=== PATIENT | female | born 1955 | race Caucasian/White ===

== ENCOUNTER 2017-08-26 18:52 | Emergency (ER) | payer OTHER, SELFPAY ==
[2017-08-26 18:58] VITALS: BP 161/82; PULSE 87; RESP 14; TEMP 37.1; O2SAT 99; BMI 31.5
--- NOTE | 2017-08-26 19:01 | ED.ABDPAIN ---
HPI - Abdominal Pain General Chief Complaint: Abdominal Pain Stated Complaint: PAIN LOWER LEFT ABD Time Seen by Provider: 08/26/17 18:58 Source: patient Mode of arrival: ambulatory Limitations: no limitations History of Present Illness HPI narrative: 62-year-old female with lower abdominal pain that is on the left side. Patient states that she has been diagnosed with diverticulitis in the past. States that she just finished a course of antibiotics which include Flagyl and Cefdinir. Patient states that she has autoimmune issues which prevent her from taking other antibiotics. She is scheduled for a colonoscopy the beginning of next week. She states that her symptoms that she has today are the same symptoms she has had for months now. She states that she called her GI provider who instructed her that since she just finished a course of antibiotics and her symptoms have not improved that she needed to come to the emergency department for further evaluation. Related Data Home Medications Medication Instructions Recorded Confirmed pravastatin [Pravachol] 20 mg PO HS #30 tab 11/22/15 methotrexate sodium (PF) #0 12/16/16 ustekinumab [Stelara] #0 12/16/16 estradiol [Vagifem] 10 mcg VG SEE INSTRUCTIONS #0 06/18/17 Previous Rx's Medication Instructions Recorded fluconazole [Diflucan] 150 mg PO QDAY #1 tab 07/18/17 fluconazole 200 mg tablet 200 mg PO DAILY #14 tab 08/16/17 hydrochlorothiazide 12.5 mg tablet 12.5 mg PO DAILY #30 tab 08/21/17 Allergies Allergy/AdvReac Type Severity Reaction Status Date / Time amoxicillin [From Augmentin] Allergy Intermediate Palpitation Verified 08/26/17 19:05 s clavulanic acid Allergy Intermediate Palpitation Verified 08/26/17 19:05 [From Augmentin] s cefuroxime [From CEFTIN] Allergy Mild swollen Verified 08/26/17 19:01 joints ciprofloxacin [CIPROFLOXACIN] Allergy Mild swollen Verified 08/26/17 19:01 tendons doxycycline [DOXYCYCLINE] Allergy Mild severe Verified 08/26/17 19:01 gastritis sulfamethoxazole Allergy Mild RASH Verified 08/26/17 19:01 Review of Systems Constitutional Denies chills, Denies fever(s), Denies lethargy and Denies weakness Cardiovascular Denies chest pain, Denies irregular heart rhythm, Denies lightheadedness, Denies palpitations, Denies dyspnea, Denies dyspnea on exertion and Denies orthopnea Respiratory Denies cough, Denies dyspnea, Denies dyspnea on exertion and Denies wheezing Gastrointestinal Comments: Left lower quadrant abdominal pain Nausea no vomiting No change in stool Genitourinary Denies hematuria, Denies flank pain, Denies urinary incontinence and Denies urinary urgency Comments: Has had a hysterectomy 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 Musculoskeletal Denies back pain, Denies muscle weakness, Denies numbness and Denies tingling Integumentary/Breasts Denies pruritus, Denies erythema, Denies rash and Denies wounds Neurologic Denies numbness, Denies tingling and Denies weakness Endocrine Denies palpitations Allergic/Immunologic Denies wheezing PFSH Surgical History Status post colonoscopy Status post endoscopy Status post hysterectomy Status post knee surgery Status post tubal ligation Family History Brother Age: 59 Multiple sclerosis Brother Age: 43 IBS (irritable bowel syndrome) Father Age: 83 Alzheimer disease Mother Age: 83 Breast cancer Heart disease Hypertension High cholesterol Sister Age: 57 Sjoegren syndrome Social History Smoking Status: Never smoker Exam Const General: cooperative and well developed Nutritional Appearance: well nourished Orientation: alert, awake, oriented x3 and not confused Chest Chest: normal inspection of the chest Resp Effort & Inspection: normal respiratory effort, able to speak in complete sentences, no respiratory distress and no use of accessory muscles Auscultation: clear to auscultation bilaterally, no rales, no rhonchi and no wheezes Cardio Rate: regular rate Rhythm: regular rhythm Heart Sounds: no click, no gallops, no murmurs and no rubs Pulses: normal peripheral pulses GI Inspection: normal to inspection and non-distended Palpation: soft, No firm and tender (Left lower quadrant) Skin General: no rashes or lesions noted, No jaundice and No petechiae Neuro General: alert, oriented x3, gait normal and no focal motor deficits Cranial Nerves: CN's II-XI intact bilaterally Speech: speech normal Motor: strength 5/5 throughout Sensory Exam: no sensory deficits noted Extrem General: full ROM, no clubbing, cyanosis or edema, no pedal edema and no calf tenderness MDM - Abdominal Pain MDM Narrative Medical decision making narrative: Had a discussion with the patient regarding her symptoms. She expressed that she has had multiple CT scans in the past several months/years for symptoms similar to what she has today. Informed her that because of her prior diagnoses of diverticulitis and the fact that she feels like this is similar to her prior diagnoses that we could treat her with antibiotics under the assumption that that is what is going on again today in avoid another CT scan. She states that she was concerned about this because her provider who was scheduled to do her colonoscopy the beginning of next week thought that she needed another CT scan to evaluate for potential complications and she seemed did not improve after her last course of antibiotics which she quit only a short time ago. We did discuss in the patient expressed understanding that multiple CT scans does expose her to a risk of radiation potential complications of this. She expressed understanding. The CT scan was performed which was unchanged from her prior scans. Patient was somewhat confused about this stating that she was told that her CT scan from March of last year that she had ???a bad case of diverticulitis ???I printed off though to results of the CT scan from March in than the 1 from June of this year and then the 1 from July this year +today CT scan so that she can take it to her GI provider at the beginning of next week. Since there were no complications such as abscesses or perforations seen on the CT scan and the fact that she has multiple issues with antibiotics and that the course of antibiotics that she just completed did not seem to help her symptoms I will hold on prescribing her another course of these antibiotics. She was instructed that she does need to follow up with her GI provider to discuss further evaluation. She expressed understanding and agreement with plan Lab Data Attestation: I reviewed the patient's lab results. Result diagrams: 08/26/17 19:10 08/26/17 19:10 Lab Results 08/26/17 08/26/17 08/26/17 Range/Units 19:10 19:10 19:10 WBC 11.8 H (4.5-11.0) X10^3/uL RBC 4.55 (4.0-5.2) X10^6/uL Hgb 13.1 (12.0-16.0) g/dL Hct 39.6 (36-46) % MCV 87.0 (80-100) fL MCH 28.9 (26-34) PG MCHC 33.2 (30-36) % RDW 16.4 H (11.6-14.8) % Plt Count 237 (150-400) X10^3/uL Neut % (Auto) 65.9 (50-75) % Lymph % (Auto) 24.5 L (25-40) % Conway % (Auto) 6.5 (3-14) % Eos % (Auto) 1.8 L (2-4) % Baso % (Auto) 1.3 (0-2) % Neut # (Auto) 7800 H (9430-1647) /uL PT 10.9 (10.1-12.7) SECONDS INR 1.0 (0.9-1.3) APTT 26 L (26.4-36.2) SECONDS Sodium 144 (137-145) mmol/L Potassium 3.7 (3.4-5.1) mmol/L Chloride 101.0 (98-107) mmol/L Carbon Dioxide 28.0 (22-32) mmol/L BUN 14.0 (7-17) mg/dL Creatinine 0.90 (0.52-1.04) mg/dL Estimated GFR > 60.0 (>60) mL/min BUN/Creatinine Ratio 15.6 (6-22) Glucose 97 (80-110) mg/dL Calcium 9.6 (8.4-10.2) mg/dL Total Bilirubin 0.5 (0.2-1.3) mg/dL AST 29 (14-36) IU/L ALT 42 (9-52) IU/L Alkaline Phosphatase 101 (38-126) U/L Total Protein 7.9 (6.3-8.2) g/dL Albumin 4.3 (3.5-5.0) g/dL Globulin 3.6 (1.7-4.1) g/dL Albumin/Globulin Ratio 1.2 (1.0-2.8) Lipase 78 (23-300) U/L Urine Color Urine Appearance Urine pH (4.5-8.0) Ur Specific Sheridan (1.000-1.035) Urine Protein (NEGATIVE) Urine Glucose (UA) (NEGATIVE) g/dL Urine Ketones (NEGATIVE) Urine Occult Blood (NEGATIVE) Urine Nitrate (NEGATIVE) Urine Bilirubin (NEGATIVE) Urine Urobilinogen (0.2) E.U./dL Ur Leukocyte Esterase (NEGATIVE) Urine RBC (0-5/HPF) Amorphous Sediment Ur Culture Indicated? Micro UA Comment 08/26/17 Range/Units 19:50 WBC (4.5-11.0) X10^3/uL RBC (4.0-5.2) X10^6/uL Hgb (12.0-16.0) g/dL Hct (36-46) % MCV (80-100) fL MCH (26-34) PG MCHC (30-36) % RDW (11.6-14.8) % Plt Count (150-400) X10^3/uL Neut % (Auto) (50-75) % Lymph % (Auto) (25-40) % Conway % (Auto) (3-14) % Eos % (Auto) (2-4) % Baso % (Auto) (0-2) % Neut # (Auto) (9190-2493) /uL PT (10.1-12.7) SECONDS INR (0.9-1.3) APTT (26.4-36.2) SECONDS Sodium (137-145) mmol/L Potassium (3.4-5.1) mmol/L Chloride (98-107) mmol/L Carbon Dioxide (22-32) mmol/L BUN (7-17) mg/dL Creatinine (0.52-1.04) mg/dL Estimated GFR (>60) mL/min BUN/Creatinine Ratio (6-22) Glucose (80-110) mg/dL Calcium (8.4-10.2) mg/dL Total Bilirubin (0.2-1.3) mg/dL AST (14-36) IU/L ALT (9-52) IU/L Alkaline Phosphatase (38-126) U/L Total Protein (6.3-8.2) g/dL Albumin (3.5-5.0) g/dL Globulin (1.7-4.1) g/dL Albumin/Globulin Ratio (1.0-2.8) Lipase (23-300) U/L Urine Color Yellow Urine Appearance Clear Urine pH 5.5 (4.5-8.0) Ur Specific Sheridan <=1.005 (1.000-1.035) Urine Protein Negative (NEGATIVE) Urine Glucose (UA) Negative (NEGATIVE) g/dL Urine Ketones Negative (NEGATIVE) Urine Occult Blood 1+ H (NEGATIVE) Urine Nitrate Negative (NEGATIVE) Urine Bilirubin Negative (NEGATIVE) Urine Urobilinogen 0.2 (0.2) E.U./dL Ur Leukocyte Esterase Negative (NEGATIVE) Urine RBC 0-1/hpf (0-5/HPF) Amorphous Sediment 2+ Ur Culture Indicated? Cult not indicated Micro UA Comment Not Reportable Imaging Data CT scan - abdomen: Radiologist's impression: PROCEDURE: CT ABDOMEN PELVIS W CON INDICATIONS: Left-sided abdominal pain hx of diverticulitis PO and IV TECHNIQUE: After the administration of oral and intravenous contrast, 5 mm thick sections acquired from the diaphragms to the symphysis. 5 mm thick coronal and sagittal reformats were performed. For radiation dose reduction, the following was used: automated exposure control, adjustment of mA and/or kV according to patient size. COMPARISON: [facility], CT, ABDOMEN/PELVIS WITH CONTRAST, further abdomen and pelvis CT from 04/09/2016. 07/24/2017, 12:58. FINDINGS: Image quality: Excellent. ABDOMEN: Lung bases: Lung bases are clear. Heart size is normal. Solid organs: Liver is normal in size and enhancement. Gallbladder is normal. Biliary system is non-dilated. Pancreas enhances normally. Spleen is normal in size and enhancement. No adrenal nodules. Kidneys are normal in size and enhancement, without hydronephrosis. Peritoneum and bowel: The appendix is dilated proximally however it tapers to a normal caliber containing gas. There is no surrounding inflammatory change. Findings do not support acute appendicitis. Small bowel and stomach are normal. Sigmoid diverticulosis with wall thickening in the sigmoid colon adjacent to the bladder and surrounding mild inflammatory change. No obstruction, perforation, or drainable limited collections. Nodes and vessels: No retroperitoneal or mesenteric adenopathy. Aorta and inferior vena cava are normal in caliber. Miscellaneous: No ventral hernias. PELVIS: Genitourinary: Bladder wall thickness is normal. Miscellaneous: No inguinal hernias or adenopathy. Bones: No suspicious bony lesions. No vertebral body compression fractures. IMPRESSION: 1. Persistent diverticulosis and wall thickening in the sigmoid colon unchanged since at least 03/2016. There is mild inflammatory change which may represent persistent uncomplicated diverticulitis. Findings are adjacent to the bladder, however there is no CT evidence of a fistula. 2. Please note, the patient has undergone 15 abdomen and pelvis CTs at this institution in the previous 3 years. Dictated by: Get Torres M.D. on 08/26/2017 at 21:27 ECG Data Attestation: I personally reviewed and interpreted this ECG as follows: Prior ECG tracings: not available for review Interpretation: Sinus rhythm Ventricular rate 82 Normal axis Normal intervals Normal QRS No ST T wave changes Course Orders Ordered: ED Orders 08/26/17 19:41 CT abdomen pelvis w con Stat 08/26/17 19:50 Urinalysis and Microscopic Stat Discontinued Medications Sodium Chloride (Normal Saline 0.9%) 1,000 mls @ 1,000 mls/hr IV BOLUS ONE Stop: 08/26/17 20:40 Last Infusion: 08/26/17 22:29 Dose: 0 mls/hr Admin: 08/26/17 19:59 Dose: 1,000 mls/hr Last Vital Signs Temp 98.8 F 08/26/17 18:58 Pulse 79 08/26/17 22:30 Resp 18 08/26/17 22:30 BP 153/80 H 08/26/17 22:30 Pulse Ox 98 08/26/17 22:30 Discharge Plan Departure Patient Disposition: Home, Self-Care Clinical Impression: Diverticulitis, Abdominal pain Discharge Date/Time: 08/26/17 22:31 Interventions: ED Discharge Assessment Last Done: 08/26/17 22:30 Instructions: Diverticulitis, DI for Abdominal Pain-Adult Activity Restrictions/Additional Instructions: Recommend that you keep your appointment with your GI provider on Monday as scheduled. Return to the emergency department for any new or worsening symptoms. Continue all medications as directed. Prescriptions: No Action pravastatin [Pravachol] 20 MG tablet 20 mg PO HS Qty: 30 RF: 0 methotrexate sodium (PF) 25 MG/1 ML solution Qty: 0 RF: 0 ustekinumab [Stelara] 45 MG/0.5 ML solution Qty: 0 RF: 0 estradiol [Vagifem] 10 MCG tablet 10 mcg VG SEE INSTRUCTIONS Qty: 0 RF: 0 fluconazole [Diflucan] 150 MG tablet 150 mg PO QDAY Qty: 1 RF: 1 fluconazole [Diflucan] 200 mg tablet 200 mg PO DAILY Qty: 14 RF: 0 hydrochlorothiazide 12.5 mg tablet 12.5 mg PO DAILY Qty: 30 RF: 1
--- NOTE | 2017-08-26 19:24 | PC.NURSE ---
Patient describes pain as different than her normal diverticulitis pain. She also c/o of epigastric chest pressure, burping, and a feeling of indigestion. Bowel sounds are active. Last bowel movement was darker, per patient report.
[2017-08-26 19:28] LABS: Prothrombin Time 10.9 SECONDS (10.1-12.7)
[2017-08-26 19:29] LABS: Add Manual Diff / Slide Review NO; Basophils Percent Auto 1.3 % (0-2); Eosinophils Percent Auto 1.8 % (2-4); Hematocrit 39.6 % (36-46); Hemoglobin 13.1 g/dL (12.0-16.0); Lymphocytes Percent Auto 24.5 % (25-40); Mean Corpuscular HGB Conc 33.2 % (30-36); Mean Corpuscular Hemoglobin 28.9 PG (26-34); Monocytes Percent Auto 6.5 % (3-14); Neutrophils Absolute Auto 7800 /uL (3000-5900); Neutrophils Percent Auto 65.9 % (50-75); Platelet Count 237 X10^3/uL (150-400); Red Blood Cell Count 4.55 X10^6/uL (4.0-5.2); Red Cell Distribution Width 16.4 % (11.6-14.8); White Blood Cell Count 11.8 X10^3/uL (4.5-11.0)
[2017-08-26 19:31] LABS: PTT Partial Thromboplastin Tim 26 SECONDS (26.4-36.2)
[2017-08-26 19:32] LABS: Alanine Aminotransferase 42 IU/L (9-52); Albumin 4.3 g/dL (3.5-5.0); Albumin Globulin Ratio 1.2 (1.0-2.8); Alkaline Phosphatase 101 U/L (38-126); Aspartate Aminotransferase 29 IU/L (14-36); BUN Creatinine Ratio 15.6 (6-22); Bilirubin Total 0.5 mg/dL (0.2-1.3); Calcium 9.6 mg/dL (8.4-10.2); Estimated Glomerular Filt Rate > 60.0 mL/min (>60); Globulin 3.6 g/dL (1.7-4.1); Glucose 97 mg/dL (80-110); HEMOLYSIS < 15 (0-50); Lipase 78 U/L (23-300); Potassium 3.7 mmol/L (3.4-5.1); Sodium 144 mmol/L (137-145); Total Protein 7.9 g/dL (6.3-8.2)
--- NOTE | 2017-08-26 19:41 | DI.CT.S_ITS ---
PROCEDURE: CT ABDOMEN PELVIS W CON INDICATIONS: Left-sided abdominal pain hx of diverticulitis PO and IV TECHNIQUE: After the administration of oral and intravenous contrast, 5 mm thick sections acquired from the diaphragms to the symphysis. 5 mm thick coronal and sagittal reformats were performed. For radiation dose reduction, the following was used: automated exposure control, adjustment of mA and/or kV according to patient size. COMPARISON: [facility], CT, ABDOMEN/PELVIS WITH CONTRAST, further abdomen and pelvis CT from 04/09/2016. 07/24/2017, 12:58. FINDINGS: Image quality: Excellent. ABDOMEN: Lung bases: Lung bases are clear. Heart size is normal. Solid organs: Liver is normal in size and enhancement. Gallbladder is normal. Biliary system is non-dilated. Pancreas enhances normally. Spleen is normal in size and enhancement. No adrenal nodules. Kidneys are normal in size and enhancement, without hydronephrosis. Peritoneum and bowel: The appendix is dilated proximally however it tapers to a normal caliber containing gas. There is no surrounding inflammatory change. Findings do not support acute appendicitis. Small bowel and stomach are normal. Sigmoid diverticulosis with wall thickening in the sigmoid colon adjacent to the bladder and surrounding mild inflammatory change. No obstruction, perforation, or drainable limited collections. Nodes and vessels: No retroperitoneal or mesenteric adenopathy. Aorta and inferior vena cava are normal in caliber. Miscellaneous: No ventral hernias. PELVIS: Genitourinary: Bladder wall thickness is normal. Miscellaneous: No inguinal hernias or adenopathy. Bones: No suspicious bony lesions. No vertebral body compression fractures. IMPRESSION: 1. Persistent diverticulosis and wall thickening in the sigmoid colon unchanged since at least 03/2016. There is mild inflammatory change which may represent persistent uncomplicated diverticulitis. Findings are adjacent to the bladder, however there is no CT evidence of a fistula. 2. Please note, the patient has undergone 15 abdomen and pelvis CTs at this institution in the previous 3 years. Dictated by: Get Torres M.D. on 08/26/2017 at 21:27 Approved by: Get Torres M.D. on 08/26/2017 at 21:34
[2017-08-26] MEDS: SODIUM CHLORIDE 0.9% 1,000 ML 1000 ML IV (19:59)
[2017-08-26 20:04] LABS: Appearance Urine UA CLEAR; Bilirubin Urine UA NEGATIVE (NEGATIVE); Color Urine UA YELLOW; Glucose Urine UA NEGATIVE (NEGATIVE); Ketones Urine UA NEGATIVE (NEGATIVE); Leukocyte Esterase Urine UA NEGATIVE (NEGATIVE); Nitrite Urine UA NEGATIVE (NEGATIVE); Occult Blood Urine UA 1+ (NEGATIVE); Protein Urine UA NEGATIVE (NEGATIVE); Specific Gravity Urine UA <=1.005 (1.000-1.035); Urobilinogen Urine UA 0.2 E.U./dL (0.2); pH Urine UA 5.5 (4.5-8.0)
[2017-08-26 20:19] VITALS: BP 150/76; PULSE 83; RESP 15; O2SAT 98
[2017-08-26 20:33] LABS: Amorphous Sediment Urine 2+; Culture Indicated Urine Cult Not Indicated; RBC Urine 0-1/HPF (0-5/HPF)
[2017-08-26 22:30] VITALS: BP 153/80; PULSE 79; RESP 18; O2SAT 98
== END 2017-08-26 22:31 | disposition home or self-care (01) ==
PROVIDERS: Emergency Provider Emergency Medicine; Family Provider Physician Assistant; PCP Physician Assistant
DX: K57.92 Diverticulitis of intestine, part unspecified, without perforation or abscess without bleeding (principal); R10.9 Unspecified abdominal pain
CPT/HCPCS: 36591; 74177; 80053; 81001; 81003; 83690; 85025; 85610; 85730; 93005; 96360; 99283; 99285; Q9967

== ENCOUNTER → 2017-09-05 11:03 | Outpatient (CLI) | payer OTHER, SELFPAY ==
[2017-09-05 12:23] LABS: Add Manual Diff / Slide Review NO; Basophils Percent Auto 0.8 % (0-2); Eosinophils Percent Auto 2.6 % (2-4); Lymphocytes Percent Auto 18.2 % (25-40); Mean Corpuscular HGB Conc 33.3 % (30-36); Mean Corpuscular Hemoglobin 28.7 PG (26-34); Mean Corpuscular Volume 86.3 fL (80-100); Monocytes Percent Auto 7.9 % (3-14); Neutrophils Absolute Auto 6800 /uL (3000-5900); Neutrophils Percent Auto 70.5 % (50-75); Platelet Count 263 X10^3/uL (150-400); Red Blood Cell Count 4.52 X10^6/uL (4.0-5.2); Red Cell Distribution Width 15.6 % (11.6-14.8); White Blood Cell Count 9.6 X10^3/uL (4.5-11.0)
[2017-09-05 12:32] LABS: Erythrocyte Sedimentation Rate 29 MM/HR (0-20)
[2017-09-05 12:51] LABS: Alanine Aminotransferase 38 IU/L (9-52); Albumin 4.2 g/dL (3.5-5.0); Albumin Globulin Ratio 1.1 (1.0-2.8); Alkaline Phosphatase 99 U/L (38-126); Aspartate Aminotransferase 23 IU/L (14-36); Bilirubin Total 0.3 mg/dL (0.2-1.3); Calcium 9.6 mg/dL (8.4-10.2); Estimated Glomerular Filt Rate > 60.0 mL/min (>60); Globulin 3.7 g/dL (1.7-4.1); Glucose 104 mg/dL (80-110); HEMOLYSIS < 15 (0-50); Lipase 71 U/L (23-300); Potassium 3.9 mmol/L (3.4-5.1); Sodium 143 mmol/L (137-145); Total Protein 7.9 g/dL (6.3-8.2)
[2017-09-05 12:56] LABS: High Sensitivity CRP - Cardiac 4.6 mg/L (1.0-3.0)
== END ==
PROVIDERS: PCP Family Medicine; Visit Provider Internal Medicine Gastroenterology
DX: R10.32 Left lower quadrant pain (principal); K57.32 Diverticulitis of large intestine without perforation or abscess without bleeding
CPT/HCPCS: 36415; 80053; 83690; 85025; 85651; 86140

== ENCOUNTER → 2017-09-19 09:01 | Outpatient (CLI) | payer OTHER, SELFPAY ==
[2017-09-19 12:00] LABS: Thyroid Stimulating Hormone 1.44 uIU/mL (0.47-4.68)
== END ==
PROVIDERS: PCP Family Medicine; Visit Provider Family Medicine
DX: E03.9 Hypothyroidism, unspecified (principal)
CPT/HCPCS: 36415; 84443

== ENCOUNTER → 2017-09-29 10:27 | Outpatient (CLI) | payer OTHER, SELFPAY ==
[2017-09-29 11:00] LABS: Add Manual Diff / Slide Review NO; Basophils Percent Auto 0.7 % (0-2); Eosinophils Percent Auto 2.8 % (2-4); Hematocrit 40.5 % (36-46); Hemoglobin 13.3 g/dL (12.0-16.0); Lymphocytes Percent Auto 21.3 % (25-40); Mean Corpuscular HGB Conc 32.9 % (30-36); Mean Corpuscular Hemoglobin 29.2 PG (26-34); Mean Corpuscular Volume 88.9 fL (80-100); Monocytes Percent Auto 5.8 % (3-14); Neutrophils Absolute Auto 6500 /uL (3000-5900); Neutrophils Percent Auto 69.4 % (50-75); Platelet Count 237 X10^3/uL (150-400); Red Blood Cell Count 4.56 X10^6/uL (4.0-5.2); White Blood Cell Count 9.4 X10^3/uL (4.5-11.0)
[2017-09-29 11:07] LABS: INR 0.9 (0.9-1.3); Prothrombin Time 10.2 SECONDS (10.1-12.7)
[2017-09-29 11:10] LABS: PTT Partial Thromboplastin Tim 27 SECONDS (26.4-36.2)
[2017-09-29 11:23] LABS: Alanine Aminotransferase 46 IU/L (9-52); Albumin 4.3 g/dL (3.5-5.0); Albumin Globulin Ratio 1.2 (1.0-2.8); Alkaline Phosphatase 103 U/L (38-126); Aspartate Aminotransferase 29 IU/L (14-36); Bilirubin Total 0.5 mg/dL (0.2-1.3); Blood Urea Nitrogen 16 mg/dL (7-17); Calcium 9.2 mg/dL (8.4-10.2); Carbon Dioxide 29 mmol/L (22-32); Chloride 101 mmol/L (98-107); Estimated Glomerular Filt Rate > 60.0 mL/min (>60); Globulin 3.6 g/dL (1.7-4.1); Glucose 95 mg/dL (80-110); HEMOLYSIS < 15 (0-50); Potassium 3.9 mmol/L (3.4-5.1); Sodium 141 mmol/L (137-145); Total Protein 7.9 g/dL (6.3-8.2)
== END ==
PROVIDERS: Family Provider Physician Assistant; PCP Family Medicine; Visit Provider Surgery
DX: K57.32 Diverticulitis of large intestine without perforation or abscess without bleeding (principal)
CPT/HCPCS: 36415; 80053; 85025; 85610; 85730

== ENCOUNTER → 2017-10-06 07:18 | Outpatient (CLI) | payer OTHER, SELFPAY ==
--- NOTE | 2017-10-06 07:20 | DI.US.S_ITS ---
PROCEDURE: US ABDOMEN COMPLETE INDICATIONS: RIGHT UPPER QUADRANT PAIN TECHNIQUE: Real-time scanning was performed of the abdominal and retroperitoneal organs, with image documentation. COMPARISON: [facility], CT, CT ABDOMEN PELVIS W CON, 08/26/2017, 20:23. FINDINGS: Liver: Liver is normal in size and demonstrates diffusely increased echotexture. Gallbladder: No gallstones identified. Normal gallbladder wall. No pericholecystic fluid. Negative sonographic Chanel sign. Biliary ducts: Intrahepatic bile ducts are non-dilated. Extrahepatic bile duct caliber measures 3.5 mm. Normal is 6-7 mm or less in diameter, or 10 mm or less post-cholecystectomy. Pancreas: Visualized portions of the pancreas are sonographically normal. Spleen: Spleen is normal in size and homogeneous in echotexture. Kidneys: Kidneys are normal in size and echotexture. Right kidney measures 9.4 cm long; left kidney measures 9.6 cm long. No hydronephrosis or nephrolithiasis. No solid masses. Aorta: Visualized aorta is normal in caliber at less than 3 cm. Iliacs: Proximal common iliac arteries are normal in caliber at less than 2.5 cm. IVC: Intrahepatic inferior vena cava is patent. Miscellaneous: No free abdominal fluid. IMPRESSION: Diffusely increased hepatic echotexture. This finding is most likely secondary to hepatic fatty infiltration although other hepatocellular disease may have a similar appearance. Recommend clinical correlation. Dictated by: Shahzad MEDRANO Interpreted: Soham Retana MD on 10/06/2017 at 8:18 Approved by: Soham Retana M.D. on 10/06/2017 at 9:38
== END ==
PROVIDERS: Family Provider Physician Assistant; PCP Family Medicine; Visit Provider Family Medicine
DX: R10.11 Right upper quadrant pain (principal)
CPT/HCPCS: 76700

== ENCOUNTER → 2017-11-14 12:23 | Outpatient (CLI) | payer OTHER, SELFPAY ==
[2017-11-14 13:35] LABS: Add Manual Diff / Slide Review NO; Basophils Percent Auto 1.2 % (0-2); Eosinophils Percent Auto 3.3 % (2-4); Hematocrit 39.3 % (36-46); Lymphocytes Percent Auto 20.9 % (25-40); Mean Corpuscular HGB Conc 33.2 % (30-36); Mean Corpuscular Hemoglobin 29.4 PG (26-34); Mean Corpuscular Volume 88.6 fL (80-100); Monocytes Percent Auto 5.8 % (3-14); Neutrophils Absolute Auto 6600 /uL (3000-5900); Neutrophils Percent Auto 68.8 % (50-75); Platelet Count 304 X10^3/uL (150-400); Red Blood Cell Count 4.44 X10^6/uL (4.0-5.2); White Blood Cell Count 9.7 X10^3/uL (4.5-11.0)
[2017-11-14 14:06] LABS: Erythrocyte Sedimentation Rate 20 MM/HR (0-20)
[2017-11-14 14:34] LABS: Alanine Aminotransferase 32 IU/L (9-52); Albumin 4.4 g/dL (3.5-5.0); Albumin Globulin Ratio 1.3 (1.0-2.8); Alkaline Phosphatase 84 U/L (38-126); Aspartate Aminotransferase 25 IU/L (14-36); BUN Creatinine Ratio 25.7 (6-22); Bilirubin Total 0.5 mg/dL (0.2-1.3); Blood Urea Nitrogen 18 mg/dL (7-17); Calcium 10.1 mg/dL (8.4-10.2); Carbon Dioxide 26 mmol/L (22-32); Chloride 103 mmol/L (98-107); Estimated Glomerular Filt Rate > 60.0 mL/min (>60); Globulin 3.4 g/dL (1.7-4.1); Glucose 128 mg/dL (80-110); HEMOLYSIS < 15 (0-50); Potassium 4.3 mmol/L (3.4-5.1); Sodium 140 mmol/L (137-145); Total Protein 7.8 g/dL (6.3-8.2)
[2017-11-14 14:39] LABS: High Sensitivity CRP - Cardiac 4.9 mg/L (1.0-3.0)
== END ==
PROVIDERS: PCP Family Medicine; Visit Provider Surgery
DX: R19.7 Diarrhea, unspecified (principal); Z90.49 Acquired absence of other specified parts of digestive tract
CPT/HCPCS: 36415; 80053; 85025; 85651; 86140; 87015; 87045; 87427; 87899

== ENCOUNTER → 2017-12-05 14:38 | Outpatient (CLI) | payer OTHER, SELFPAY ==
--- NOTE | 2017-12-05 | DI.CT.S_ITS ---
PROCEDURE: CT ABDOMEN PELVIS W CON INDICATIONS: LAPAROSCOPIC SIGNOIDECTOMY 5 weeks ago TECHNIQUE: After the administration of oral and intravenous contrast, 5 mm thick sections acquired from the diaphragms to the symphysis. 5 mm thick coronal and sagittal reformats were performed. For radiation dose reduction, the following was used: automated exposure control, adjustment of mA and/or kV according to patient size. COMPARISON: [facility], CT, CT ABDOMEN PELVIS W CON, 08/26/2017, 20:23. [facility], CT, ABDOMEN/PELVIS WITH CONTRAST, 07/24/2017, 12:58. [facility], CT, ABDOMEN/PELVIS WITH CONTRAST, 06/28/2017, 14:26. FINDINGS: Image quality: Excellent. ABDOMEN: Lung bases: Lung bases are clear. Heart size is normal. Solid organs: Liver is normal in size and enhancement. Gallbladder appears normal. Biliary system is non-dilated. Pancreas enhances normally. Spleen is normal in size and enhancement. No adrenal nodules. Kidneys are normal in size and enhancement, without hydronephrosis. Peritoneum and bowel: Stomach, small bowel, and colon loops are normal in caliber and wall thickness. No free fluid or air. Nodes and vessels: No retroperitoneal or mesenteric adenopathy. Aorta and inferior vena cava are normal in caliber. Miscellaneous: No ventral hernias. PELVIS: Genitourinary: Bladder wall thickness is normal. Miscellaneous: No inguinal hernias or adenopathy. What appears to be a normal short appendix is seen at the right lower quadrant. There is a sigmoid colon enteric staple line posteriorly, without evidence of operative complication. Expected slight amount of postprocedural scarring/edema is noted in this area. This is best seen centered on series 2 image 77. Along the areas of presumed laparoscopic approach (reportedly 5 weeks ago) no abnormal fluid collection or evidence of hernia is present. Bones: No suspicious bony lesions. No vertebral body compression fractures. IMPRESSION: Expected postsurgical change, no operative complication found. Source of unusual discomfort is not identified. Dictated by: Charles Estrada M.D. on 12/05/2017 at 17:02 Approved by: Charles Estrada M.D. on 12/05/2017 at 17:08
== END ==
PROVIDERS: Family Provider Physician Assistant; PCP Family Medicine; Visit Provider Surgery
DX: Z09 Encounter for follow-up examination after completed treatment for conditions other than malignant neoplasm (principal); Z90.49 Acquired absence of other specified parts of digestive tract
CPT/HCPCS: 74177; Q9967

== ENCOUNTER → 2017-12-28 14:25 | Outpatient (CLI) | payer OTHER, SELFPAY ==
[2017-12-28 15:30] LABS: BUN Creatinine Ratio 22.5 (6-22); Blood Urea Nitrogen 18 mg/dL (7-17); Calcium 9.8 mg/dL (8.4-10.2); Carbon Dioxide 31 mmol/L (22-32); Chloride 102 mmol/L (98-107); Estimated Glomerular Filt Rate > 60.0 mL/min (>60); Glucose 89 mg/dL (80-110); HEMOLYSIS < 15 (0-50); Potassium 4.1 mmol/L (3.4-5.1); Sodium 142 mmol/L (137-145)
== END ==
PROVIDERS: Family Provider Physician Assistant; PCP Family Medicine; Visit Provider Family Medicine
DX: E78.5 Hyperlipidemia, unspecified (principal); I10 Essential (primary) hypertension
CPT/HCPCS: 36415; 80048

== ENCOUNTER → 2017-12-30 09:39 | Outpatient (CLI) | payer OTHER, SELFPAY ==
[2017-12-30 10:20] LABS: Cholesterol 235 mg/dL (140-199); HDL Cholesterol 48 mg/dL (40-60); LDL Cholesterol Calculated 158 mg/dL (<100); Triglycerides 146 mg/dL (35-150)
[2017-12-30 10:58] LABS: Thyroid Stimulating Hormone 1.97 uIU/mL (0.47-4.68)
== END ==
PROVIDERS: Family Provider Family Medicine; PCP Family Medicine; Visit Provider Family Medicine
DX: I10 Essential (primary) hypertension (principal); E78.5 Hyperlipidemia, unspecified; E03.9 Hypothyroidism, unspecified; R30.0 Dysuria; R31.9 Hematuria, unspecified
CPT/HCPCS: 36415; 80061; 84443

== ENCOUNTER → 2018-01-17 10:11 | Outpatient (CLI) | payer OTHER, SELFPAY ==
--- NOTE | 2018-01-17 10:12 | DI.US.S_ITS ---
PROCEDURE: US ABDOMEN COMPLETE INDICATIONS: ABDOMINAL PAIN TECHNIQUE: Real-time scanning was performed of the abdominal and retroperitoneal organs, with image documentation. COMPARISON: [facility], US, US ABDOMEN COMPLETE, 10/06/2017, 7:27. FINDINGS: Liver: The liver measures 15.4 cm in length and demonstrates slightly increased echogenicity. Gallbladder: The gallbladder wall measures 1.6 mm in thickness. No stones, sludge, pericholecystic fluid, or sonographic Chanel sign. Biliary ducts: Intrahepatic bile ducts are non-dilated. Extrahepatic bile duct caliber measures 5.3 mm. Normal is 6-7 mm or less in diameter, or 10 mm or less post-cholecystectomy. Pancreas: Visualized portions of the pancreas are sonographically normal. Spleen: Spleen is normal in size and homogeneous in echotexture. Kidneys: Kidneys are normal in size and echotexture. Right kidney measures 10.2 cm long; left kidney measures 10.3 cm long. No hydronephrosis or nephrolithiasis. No solid masses. Aorta: Visualized aorta is normal in caliber at less than 3 cm. Iliacs: Proximal common iliac arteries are normal in caliber at less than 2.5 cm. IVC: Intrahepatic inferior vena cava is patent. Miscellaneous: No free abdominal fluid. IMPRESSION: No cholelithiasis or findings to suggest choledocholithiasis or acute cholecystitis. Dictated by: Jeny Beverly M.D. on 01/17/2018 at 12:12 Approved by: Jeny Beverly M.D. on 01/17/2018 at 12:13
== END ==
PROVIDERS: PCP Family Medicine; Visit Provider Family Medicine
DX: R10.11 Right upper quadrant pain (principal); R11.0 Nausea
CPT/HCPCS: 76700

== ENCOUNTER → 2018-02-07 10:06 | Outpatient (CLI) | payer OTHER, SELFPAY ==
--- NOTE | 2018-02-07 | DI.CT.S_ITS ---
PROCEDURE: CT ABDOMEN PELVIS W CON INDICATIONS: Lower pelvic pain and swelling TECHNIQUE: After the administration of oral and intravenous contrast, 5 mm thick sections acquired from the diaphragms to the symphysis. 5 mm thick coronal and sagittal reformats were performed. For radiation dose reduction, the following was used: automated exposure control, adjustment of mA and/or kV according to patient size. COMPARISON: [facility], CT, CT ABDOMEN PELVIS W CON, 12/05/2017, 16:10. [facility], CT, CT ABDOMEN PELVIS W CON, 08/26/2017, 20:23. FINDINGS: Image quality: Excellent. ABDOMEN: Lung bases: Lung bases are clear. Heart size is normal. Solid organs: Liver is normal in size and enhancement. Gallbladder is within normal limits. Biliary system is non-dilated. Pancreas enhances normally. Spleen is normal in size and enhancement. No adrenal nodules. Kidneys are normal in size and enhancement, without hydronephrosis. Peritoneum and bowel: Stomach, small bowel, and colon loops are normal in caliber and wall thickness. Sigmoid colon anastomotic clips are present. Appendix is normal. No free fluid or air. Nodes and vessels: No retroperitoneal or mesenteric adenopathy. Aorta and inferior vena cava are normal in caliber. Miscellaneous: No ventral hernias. PELVIS: Genitourinary: Bladder wall thickness is normal. Miscellaneous: No inguinal hernias or adenopathy. Bones: No suspicious bony lesions. No vertebral body compression fractures. IMPRESSION: 1. Negative examination. No acute process. 2. Normal appendix. 3. No explanation for pelvic pain and swelling. Dictated by: Berry Michelle M.D. on 02/07/2018 at 11:34 Approved by: Berry Michelle M.D. on 02/07/2018 at 11:36
== END ==
PROVIDERS: PCP Family Medicine; Visit Provider Surgery
DX: R10.2 Pelvic and perineal pain (principal); R19.09 Other intra-abdominal and pelvic swelling, mass and lump
CPT/HCPCS: 74177; Q9967

== ENCOUNTER → 2018-02-07 11:19 | Outpatient (CLI) | payer OTHER, SELFPAY ==
--- NOTE | 2018-02-16 16:19 | P.HOLT.S_ITS ---
Ophthalmology Surgical Technician Report Referral & Results Date Patient Seen: 02/07/18 Requesting provider: Abbey Cramer Indication: Palpitations Duration of monitoring (days): 3 Diary information: There were a diary entries also say was sinus rhythm There 26 patient triggered events associated with sinus rhythm as well as PACs and PVCs Data: Minimum heart rate was 50 beats per minute at 05:12 on 02/08/2018 Maximum heart rate was 122 beats per minute at 16:49 on 02/09/2018 PACs and PVCs were rare, less than 1% of identified beats Impression: No clear etiology for patient's sense of palpitations. All of her reported events were associated with sinus rhythm only.
== END ==
PROVIDERS: PCP Family Medicine; Visit Provider Family Medicine
DX: R00.2 Palpitations (principal)
CPT/HCPCS: 0296T; 0298T

== ENCOUNTER 2018-02-15 13:45 | Outpatient (RCR) | payer OTHER, SELFPAY ==
--- NOTE | 2018-01-23 12:49 | PT.OIE ---
Current Diagnoses Other specified disorders of muscle (01/18/18) Past Medical History (Last Reviewed 12/29/17 @ 07:51 by Abbey Cramer MD) Essential hypertension (Chronic) Dyspepsia (Chronic) Reflux esophagitis (Chronic) Mural thickening of sigmoid colon (Chronic) Anxiety (Chronic 2012) Interstitial cystitis (chronic) without hematuria (Chronic) Hyperlipidemia (Chronic) Acquired hypothyroidism (Chronic) Degenerative joint disease (DJD) of lumbar spine (Chronic) Diverticular disease (Chronic 2008) Fibromyalgia (Chronic 1985) GERD (gastroesophageal reflux disease) (Chronic 2008) Hematuria (Chronic 1985) Hemorrhoids (Chronic 2016) IBS (irritable bowel syndrome) (Chronic 2016) Interstitial cystitis (Chronic 1985) Osteoarthritis (Chronic 1995) Osteopenia (Chronic 2009) Osteoporosis (Chronic) Rheumatoid arthritis (Chronic 1998) Thyroid nodule (Chronic 2013) Tinnitus (Chronic 2014) Chicken pox (Resolved 1959) Colon polyps (Resolved 09/2016) Measles (Resolved) Mumps (Resolved) Uterine cancer (Resolved 04/2016) Diverticulitis (Inactive) Past Surgical History (Last Reviewed 12/29/17 @ 07:51 by Abbey Cramer MD) Anesthesia complication (Resolved) S/P partial colectomy (Resolved) Status post colonoscopy (Resolved 02/2009) Status post colonoscopy (Resolved 04/30/16) Status post endoscopy (Resolved 02/2009) Status post endoscopy (Resolved 04/30/16) Status post hysterectomy (Resolved 04/2016) Status post knee surgery (Resolved 04/2015) Status post tubal ligation (Resolved 1986) Provider Visit Care Team Role Provider Type Abbey Cramer MD Attending Provider Physician Primary Care Provider Specialty: Family [facility] Address: [address] [place] [address], [facility] Email: [email or web address] Physical Therapy Initial Evaluation PT-OP-A Visit Information Start: 01/18/18 17:47 Freq: Status: Active Protocol: Document 01/18/18 13:45 [facility] (Rec: 01/23/18 12:49 [facility] [email or web address]) Out-Patient Physical Therapy Visit Information Visit Information Visit Type Initial Evaluation Visit Start Time 13:45 Visit Stop Time 14:00 Total Visit Minutes 45 Visit Number 1 Evaluation Information Evaluation Date 10/04/18 PT-OP-B Current Condition Start: 01/18/18 17:47 Freq: Status: Active Protocol: Document 01/18/18 13:45 [facility] (Rec: 01/23/18 12:49 [facility] [email or web address]) Current Condition History of Current Condition Onset Date worse following a total hysterectomy 04/2016 Current Complaints pelvic floor dysfunction with pelvic pressure,decreased ability to empty History of Current Condition Palmira is a 62 year old female who has a history of pelvic floor dysfunction and hypertonicity. She underwent a total hysterectomy 04/2016 due to uterine cancer. She then underwent a bowel resection in which 13 inches of her sigmoid colon were removed. She notes after the surgery she could void fully and had no problems until she started lifting her grandson and she felt pelvic pressure again. She now feel like her ability to void is compromised . Past medical history includes interstitial cystitis , RA, osteoarthritis, fibromyalgia Treatment Goals Patient/Caregiver Goals to decrease pelvic pressure and heaviness PT-OP-I Pelvic Floor Start: 01/18/18 17:47 Freq: Status: Active Protocol: Document 01/18/18 13:45 [facility] (Rec: 01/23/18 12:49 [facility] [email or web address]) Pelvic Floor Assessment Urine Pelvic Floor Surgery Yes Contraction Ability Voluntary Contraction Weak Manual Muscle Testing Left 3 Manual Muscle Testing Right 3 Manual Muscle Testing Anterior 3 Manual Muscle Testing Posterior 3 Comments Pelvic Floor Comments guarding to palpation on the left lateral wall of the levator ani, after the internal exam Palmira reports she can feel the pressure. I did not appreciate any bladder prolapse at this time PT-OP-Q Treatments Start: 01/18/18 17:47 Freq: Status: Active Protocol: Document 01/18/18 13:45 [facility] (Rec: 01/23/18 12:49 [facility] [email or web address]) Therapeutic Exercises Supine Exercises 1 Supine Exercise Name pelvic floor contract/relax Manual Therapy Treatment Other Other Manual Treatments manual release of the left illiococcygeus PT-OP-T Assessment and Plan Start: 01/18/18 17:47 Freq: Status: Active Protocol: Document 01/18/18 13:45 [facility] (Rec: 01/23/18 12:49 [facility] [email or web address]) Physical Therapy Assessment Impairments Impairments Activity Tolerance Functional Activities Pain Soft Tissue Mobility Strength Tone Goals Four Impairment Decreased pelvic floor strength with MMT 3/5 for the pelvic floor Mcfp Goal (LTG) Improve pelvic floor strength to 4/5 or better on MMT LTG Duration 8 weeks Three Impairment Decreased endurance of the pelvic floor Short Term Goal (STG) Improve endurance of the pelvic floor to 10 second hold time in supine STG Duration 6 weeks Two Impairment Guarding of the left lateral wall of the levator ani Mcfp Goal (LTG) Palmira is able to relax the pelvic floor at rest decreasing elevated tone of the left levator ani LTG Duration 8 weeks One Impairment Palmira is unable to lift her grandson due to pelvic pressure and heaviness Mcfp Goal (LTG) Improve strength of the pelvic floor to improve support to the pelvic organs and decrease c/o pelvic pressure LTG Duration 8 weeks Assessment Summary Assessment Palmira presents to physical therapy today with ongoing pelvic floor symptoms. She reports she was doing really well after her sigmoid colon removal until she had to start lifting her grandson and this aggravated her symptoms. She is feeling pelvic pressure and swelling. With examination today I don't feel the bladder prolapsed but she does feel swollen and guarded especially on the left side. This guarding may be contributing to her feeling of pelvic pressure. She is able to facilitate contraction of her pelvic floor in all portions of the levator ani but is weak. Once we are able to get her elevated tone decreased then treatment will focus on strength training. Physical Therapy Plan Frequency and Duration Frequency of Treatment 1x/Week Duration of Treatment 8 weeks Plan of Care Start Date 01/18/18 Plan of Care End Date 03/15/18 Therapeutic Interventions Therapeutic Interventions Home Exercise Program Manual Therapy Neuromuscular Re-education Self-Care/Home Management Sensory Integration Therapeutic Exercises Next Visit Focus/Plan Next Note Type Treatment Note Next Visit Plan work on EMG biofeedback next visit addressing relaxed awareness of the pelvic floor and strengthening as Palmira is able to do so.
--- NOTE | 2018-01-23 12:51 | PT.OPPOC ---
Current Diagnoses Other specified disorders of muscle (01/18/18) Provider Visit Care Team Role Provider Type Abbey Cramer MD Attending Provider Physician Primary Care Provider Specialty: Family Practice Address: [address] [place] [address], [facility] Email: [email or web address] Plan Of Care PT-OP-T Assessment and Plan Start: 01/18/18 17:47 Freq: Status: Active Protocol: Document 01/18/18 13:45 [facility] (Rec: 01/23/18 12:49 [facility] [email or web address]) Physical Therapy Assessment Impairments Impairments Activity Tolerance Functional Activities Pain Soft Tissue Mobility Strength Tone Goals Four Impairment Decreased pelvic floor strengh with MMT 3/5 for the pelvic floor Biomedical Electronics Technician Goal (LTG) Improve pelvic floor strength to 4/5 or better on MMT LTG Duration 8 weeks Three Impairment Decreased endurance of the pelvic floor Short Term Goal (STG) Improve endurance of the pelvic floor to 10 second hold time in supine STG Duration 6 weeks Two Impairment Guarding of the left lateral wall of the levator ani Biomedical Electronics Technician Goal (LTG) Palmira is able to relax the pelvic floor at rest decreasing elevated tone of the left levator ani LTG Duration 8 weeks One Impairment Palmira is unable to lift her grandson due to pelvic pressure and heaviness Chcf Goal (LTG) Improve strength of the pelvic floor to improve support to the pelvic organs and decrease c/o pelvic pressure LTG Duration 8 weeks Assessment Summary Assessment Palmira presents to physical therapy today with ongoing pelvic floor symptoms. She reprots she was doing really well after her sigmoid colon removal until she had to start lifting her grandson and this aggravated her symptoms. She is feeling pelvic pressure and swelling. With examination today I don't feel the bladder prolapsed but she does feel swollen and guarded especially on the left side. This guarding may be contributing to her feeling of pelvic pressure. She is able to facilitate contraction of her pelvic floor in all portions of the levator ani but is weak. Once we are able to get her elevated tone decreased then treatment will focus on strength training. Physical Therapy Plan Frequency and Duration Frequency of Treatment 1x/Week Duration of Treatment 8 weeks Plan of Care Start Date 01/18/18 Plan of Care End Date 11/29/18 Therapeutic Interventions Therapeutic Interventions Home Exercise Program Manual Therapy Neuromuscular Re-education Self-Care/Home Management Sensory Integration Therapeutic Exercises Next Visit Focus/Plan Next Note Type Treatment Note Next Visit Plan work on EMG biofeedback next visit addressing relaxed awareness of the pelvic floor and strengthening as Palmira is able to do so. Plan of Care Dates Plan of Care Start Date 01/18/18 Plan of Care End Date 03/15/18 Please Sign and Return: I have reviewed this Plan of Care and certify that the skilled therapy services above are required to meet the patient?s needs. Physician Signature Date Printed Name and Credentials Clinical Instructor Signature Printed Name and Credentials
--- NOTE | 2018-02-01 18:07 | PT.OTN ---
Current Diagnoses Other specified disorders of muscle (02/01/18) Physical Therapy Treatment Note PT-OP-A Visit Information Start: 01/18/18 17:47 Freq: Status: Active Protocol: Document 02/01/18 18:02 [facility] (Rec: 02/01/18 18:07 [facility] [email or web address]) Out-Patient Physical Therapy Visit Information Visit Information Visit Type Treatment Note Visit Start Time 13:45 Visit Stop Time 14:30 Total Visit Minutes 45 Visit Number 2 PT-OP-B Current Condition Start: 01/18/18 17:47 Freq: Status: Active Protocol: Document 01/18/18 13:45 [facility] (Rec: 01/23/18 12:49 [facility] [email or web address]) Current Condition History of Current Condition Onset Date worse following a total hysterectomy 04/2016 Current Complaints pelvic floor dysfunction with pelvic pressure,decreased ability to empty History of Current Condition Palmira is a 62 year old female who has a history of pelvic floor dysfunction and hypertonicity. She underwent a total hysterectomy 04/2016 due to uterine cancer. She then underwent a bowel resection in which 13 inches of her sigmoid colon were removed. She notes after the surgery she could void fully and had no problems until she started lifting her grandson and she felt pelvic pressure again. She now feel like her ability to void is compromised . Past medical history includes interstitial cystitis , RA, osteoarthritis, fibromyalgia Treatment Goals Patient/Caregiver Goals to decrease pelvic pressure and heaviness PT-OP-C Subjective Start: 01/18/18 17:47 Freq: Status: Active Protocol: Document 02/01/18 18:02 [facility] (Rec: 02/01/18 18:07 [facility] [email or web address]) OP-PT Subjective Patient Comments Patient Comments Palmira reports she will be seeing the surgeon again who performed her bowel resection as she is continuing to note increased abdominal swelling and pain PT-OP-I Pelvic Floor Start: 01/18/18 17:47 Freq: Status: Active Protocol: Document 01/18/18 13:45 [facility] (Rec: 01/23/18 12:49 [facility] [email or web address]) Pelvic Floor Assessment Urine Pelvic Floor Surgery Yes Contraction Ability Voluntary Contraction Weak Manual Muscle Testing Left 3 Manual Muscle Testing Right 3 Manual Muscle Testing Anterior 3 Manual Muscle Testing Posterior 3 Comments Pelvic Floor Comments guarding to palpation on the left lateral wall of the levator ani, after the internal exam Palmira reports she can feel the pressure. I did not appreciate any bladder prolapse at this time PT-OP-Q Treatments Start: 01/18/18 17:47 Freq: Status: Active Protocol: Document 02/01/18 18:02 [facility] (Rec: 02/01/18 18:07 [facility] [email or web address]) Manual Therapy Treatment Soft Tissue Mobilization 3 Body Location Skin rolling and MFR over the posterior gluteals and SI region 2 Body Location pelvic floor internal release B Comments MFR causes c/o left sided SI pain 1 Body Location gentle MFR over the suprapubic fascia and bladder PT-OP-T Assessment and Plan Start: 01/18/18 17:47 Freq: Status: Active Protocol: Document 02/01/18 18:02 [facility] (Rec: 02/01/18 18:07 [facility] [email or web address]) Physical Therapy Assessment Assessment Summary Assessment I talked about starting the Yoga for pelvic pain DVD with Palmira as everything flares her at this time and she needs a very gentle approach. She felt increased pain following her first visit with pelvic floor isolations. She tolerated MFR the best today over the posterior SI joint and deep posterior pelvic floor Physical Therapy Plan Frequency and Duration Frequency of Treatment 1x/Week Duration of Treatment 8 weeks Plan of Care Start Date 01/18/18 Plan of Care End Date 03/15/18 Next Visit Focus/Plan Next Note Type Treatment Note Next Visit Plan begin a program of Yoga for pelvic pain
--- NOTE | 2018-02-15 15:48 | PT.OTN ---
Current Diagnoses Other specified disorders of muscle (02/15/18) Physical Therapy Treatment Note PT-OP-A Visit Information Start: 01/18/18 17:47 Freq: Status: Active Protocol: Document 02/15/18 15:42 [facility] (Rec: 02/15/18 15:48 [facility] [email or web address]) Out-Patient Physical Therapy Visit Information Visit Information Visit Type Treatment Note Visit Note pt was 15 minutes late Visit Start Time 14:00 Visit Stop Time 14:30 Total Visit Minutes 30 Visit Number 3 PT-OP-B Current Condition Start: 01/18/18 17:47 Freq: Status: Active Protocol: Document 01/18/18 13:45 [facility] (Rec: 01/23/18 12:49 [facility] [email or web address]) Current Condition History of Current Condition Onset Date worse following a total hysterectomy 04/2016 Current Complaints pelvic floor dysfunction with pelvic pressure,decreased ability to empty History of Current Condition Palmira is a 62 year old female who has a history of pelvic floor dysfunction and hypertonicity. She underwent a total hysterectomy 04/2016 due to uterine cancer. She then underwent a bowel resection in which 13 inches of her sigmoid colon were removed. She notes after the surgery she could void fully and had no problems until she started lifting her grandson and she felt pelvic pressure again. She now feel like her ability to void is compromised . Past medical history includes interstitial cystitis , RA, osteoarthritis, fibromyalgia Treatment Goals Patient/Caregiver Goals to decrease pelvic pressure and heaviness PT-OP-C Subjective Start: 01/18/18 17:47 Freq: Status: Active Protocol: Document 02/15/18 15:42 [facility] (Rec: 02/15/18 15:48 [facility] [email or web address]) OP-PT Subjective Patient Comments Patient Comments Palmira notes she is doing pretty good overall with decreased complaints of symptoms. After the eliptical she feels increased pelvic pressure but it has been reduced overall PT-OP-I Pelvic Floor Start: 01/18/18 17:47 Freq: Status: Active Protocol: Document 01/18/18 13:45 [facility] (Rec: 01/23/18 12:49 [facility] [email or web address]) Pelvic Floor Assessment Urine Pelvic Floor Surgery Yes Contraction Ability Voluntary Contraction Weak Manual Muscle Testing Left 3 Manual Muscle Testing Right 3 Manual Muscle Testing Anterior 3 Manual Muscle Testing Posterior 3 Comments Pelvic Floor Comments guarding to palpation on the left lateral wall of the levator ani, after the internal exam Palmira reports she can feel the pressure. I did not appreciate any bladder prolapse at this time PT-OP-Q Treatments Start: 01/18/18 17:47 Freq: Status: Active Protocol: Document 02/15/18 15:42 [facility] (Rec: 02/15/18 15:48 [facility] [email or web address]) Therapeutic Exercises Supine Exercises 3 Supine Exercise Name piriformis stretch 2 Supine Exercise Name Yoga for pelvic pain stretches including happy baby, hamstring, adductors, 1 Supine Exercise Name pelvic floor contract/relax Other Exercises 2 Other Exercise Name pedro pose 1 Other Exercise Name quadraped cat cow, rock backs PT-OP-T Assessment and Plan Start: 01/18/18 17:47 Freq: Status: Active Protocol: Document 02/15/18 15:42 [facility] (Rec: 02/15/18 15:48 [facility] [email or web address]) Physical Therapy Assessment Assessment Summary Assessment Ti ordered the yoga for pelvic pain DVD, she did feel increased pressure with cat cow and we talked about relaxing her abdominal wall when she does her pelivc rotations to decrease downward pressure. Limited visit today due to pt being 15 minutes late. Resume EMG biofeedback next visit Physical Therapy Plan Frequency and Duration Frequency of Treatment 1x/Week Duration of Treatment 8 weeks Plan of Care Start Date 01/18/18 Plan of Care End Date 03/15/18 Therapeutic Interventions Therapeutic Interventions Home Exercise Program Manual Therapy Neuromuscular Re-education Self-Care/Home Management Sensory Integration Therapeutic Exercises Next Visit Focus/Plan Next Note Type Treatment Note Next Visit Plan resume EMg biofeedback and yoga for pelvic pain
== END 2018-12-19 16:30 | disposition home or self-care (01) ==
LOC: PHYS 13:45
PROVIDERS: PCP Family Medicine; Visit Provider Family Medicine
DX: M62.89 Other specified disorders of muscle (principal)
CPT/HCPCS: 97110; 97140; 97161; 97535

== ENCOUNTER → 2018-03-01 11:35 | Outpatient (CLI) | payer OTHER, SELFPAY ==
--- NOTE | 2018-03-01 | DI.MG.S_ITS ---
BILATERAL DIGITAL SCREENING MAMMOGRAM 3D/2D WITH CAD: 03/01/2018 CLINICAL: Routine screening. Family history of breast cancer. Comparison is made to exams dated: 08/15/2016 mammogram, 07/13/2015 mammogram, and 02/01/2014 mammogram - [facility]. There are scattered fibroglandular elements in both breasts. Current study was also evaluated with a Computer Aided Detection (CAD) system. No significant masses, calcifications, or other findings are seen in either breast. There has been no significant interval change. IMPRESSION: NEGATIVE There is no mammographic evidence of malignancy. A 1 year screening mammogram is recommended. This exam was interpreted at Station ID: [id number]. NOTE: For mammograms, a report in lay terms will be sent to the patient. Approximately 15% of breast malignancies will not be visualized mammographically. In the management of a palpable breast mass, a negative mammogram must not discourage biopsy of a clinically suspicious lesion. Electronically Signed By: Jeny brown/brian:03/01/2018 16:26:10 copy to: SEAMUS BELTRE MD letter sent: Normal Exam ACR BI-RADS Category 1: Negative [id number]
== END ==
PROVIDERS: PCP Family Medicine; Visit Provider Family Medicine
DX: Z12.31 Encounter for screening mammogram for malignant neoplasm of breast (principal); Z80.3 Family history of malignant neoplasm of breast
CPT/HCPCS: 77063; 77067

== ENCOUNTER → 2018-03-12 07:24 | Outpatient (CLI) | payer OTHER, SELFPAY ==
[2018-03-12 08:58] LABS: Free T3, Triiodothyronine Free 3.14 pg/mL (2.77-5.27); Free T4, Direct Thyroxine 1.08 ng/dL (0.78-2.19)
[2018-03-12 19:06] LABS: Add Manual Diff / Slide Review NO; Basophils Percent Auto 0.9 % (0-2); Eosinophils Percent Auto 3.3 % (2-4); Hematocrit 44.6 % (36-46); Hemoglobin 14.3 g/dL (12.0-16.0); Lymphocytes Percent Auto 43.6 % (25-40); Mean Corpuscular Hemoglobin 28.7 PG (26-34); Mean Corpuscular Volume 89.6 fL (80-100); Monocytes Percent Auto 8.2 % (3-14); Neutrophils Absolute Auto 3700 /uL (3000-5900); Platelet Count 274 X10^3/uL (150-400); Red Blood Cell Count 4.98 X10^6/uL (4.0-5.2); Red Cell Distribution Width 16.8 % (11.6-14.8); White Blood Cell Count 8.3 X10^3/uL (4.5-11.0)
[2018-03-12 19:11] LABS: Alanine Aminotransferase 43 IU/L (9-52); Albumin 4.5 g/dL (3.5-5.0); Albumin Globulin Ratio 1.3 (1.0-2.8); Alkaline Phosphatase 88 U/L (38-126); Aspartate Aminotransferase 49 IU/L (14-36); BUN Creatinine Ratio 15.7 (6-22); Bilirubin Total 0.4 mg/dL (0.2-1.3); Blood Urea Nitrogen 11 mg/dL (7-17); Calcium 9.2 mg/dL (8.4-10.2); Carbon Dioxide 26 mmol/L (22-32); Chloride 105 mmol/L (98-107); Estimated Glomerular Filt Rate > 60.0 mL/min (>60); Globulin 3.4 g/dL (1.7-4.1); Glucose 103 mg/dL (80-110); HEMOLYSIS 24 (0-50); Potassium 3.9 mmol/L (3.4-5.1); Sodium 144 mmol/L (137-145); Total Protein 7.9 g/dL (6.3-8.2)
[2018-03-12 19:28] LABS: Vitamin D 25 Hydroxy (D3) 21.7 ng/mL (30.0-100.0)
== END ==
PROVIDERS: PCP Family Medicine; Visit Provider Family Medicine
DX: E03.9 Hypothyroidism, unspecified (principal); E04.1 Nontoxic single thyroid nodule; E55.9 Vitamin D deficiency, unspecified; I10 Essential (primary) hypertension; R10.9 Unspecified abdominal pain
CPT/HCPCS: 36415; 80053; 82306; 84439; 84443; 84481; 85025

== ENCOUNTER 2018-03-20 10:44 | Emergency (ER) | payer OTHER, SELFPAY ==
[2018-03-20 11:09] VITALS: BP 162/92; PULSE 92; RESP 14; O2SAT 98
[2018-03-20 12:00] VITALS: BP 154/86; PULSE 85; RESP 16; O2SAT 97
--- NOTE | 2018-03-20 12:12 | ED.ABDPAIN ---
HPI - Abdominal Pain <HERMES Haskins - Last Filed: 03/20/18 22:17> General Chief Complaint: Abdominal Pain Stated Complaint: CHEST PAIN/ABDOMINAL PAIN Time Seen by Provider: 03/20/18 12:12 Source: patient Mode of arrival: ambulatory Limitations: no limitations History of Present Illness HPI narrative: 63-year-old female with history of uterine cancer and diverticulitis here for complaint of pain into her lower abdomen over the past week. She also reports having chest pain on and off over the past couple of months. She has been seen by her primary care provider for the chest pain and is thought to have anxiety related chest pain. She is currently awaiting a stress test as well for further evaluation. He reports that about a month ago she had a resection to her colon due to frequent bouts of diverticulitis down in [place]. She denies any urinary symptoms. She denies any nausea vomiting. She denies any fevers. No trauma to the abdomen. She denies any stressors or relievers of her pain. At time of exam she did not have any chest pain. Last bowel movement was yesterday and was unremarkable. Related Data Home Medications Medication Instructions Recorded Confirmed estradiol [Vagifem] 10 mcg VG SEE INSTRUCTIONS #0 06/18/17 03/20/18 alprazolam 0.125 mg PO PRN PRN 03/20/18 03/20/18 amitriptyline 5 mg PO BEDTIME 03/20/18 03/20/18 cholecalciferol (vitamin D3) 5,000 unit PO DAILY 03/20/18 03/20/18 [Vitamin D3] diclofenac sodium 1 applic TOPICAL DIRECTED 03/20/18 03/20/18 golimumab [Simponi] 1 dose SUBCUT QMONTH 03/20/18 03/20/18 levothyroxine [Tirosint] 50 mcg PO DAILY 03/20/18 03/20/18 methotrexate sodium (PF) 0.4 ml SUBCUT QWEEK 03/20/18 03/20/18 pravastatin [Pravachol] 20 mg PO BEDTIME 03/20/18 03/20/18 Allergies Allergy/AdvReac Type Severity Reaction Status Date / Time amoxicillin [From Augmentin] Allergy Intermediate Palpitation Verified 03/13/18 11:57 s clavulanic acid Allergy Intermediate Palpitation Verified 03/13/18 11:57 [From Augmentin] s cefuroxime [From CEFTIN] Allergy Mild swollen Verified 03/13/18 11:57 joints ciprofloxacin [CIPROFLOXACIN] Allergy Mild swollen Verified 03/13/18 11:57 tendons doxycycline [DOXYCYCLINE] Allergy Mild severe Verified 03/13/18 11:57 gastritis sulfamethoxazole Allergy Mild RASH Verified 03/13/18 11:57 trimethoprim [From Septra] AdvReac rash Verified 03/13/18 11:57 Review of Systems <HERMES Haskins - Last Filed: 03/20/18 22:17> Constitutional Denies chills, Denies fatigue, Denies fever(s), Denies lethargy and Denies weakness Eyes Denies change in vision, Denies eye discharge, Denies irritation and Denies loss of vision ENT Ears, Nose, Mouth, and Throat: Denies change in voice, Denies neck pain and Denies sore throat Cardiovascular Reports chest pain, Denies dyspnea and Denies dyspnea on exertion Respiratory Denies cough, Denies dyspnea, Denies dyspnea on exertion and Denies wheezing Gastrointestinal Comments: Lower abdominal pain Genitourinary Denies hematuria, Denies flank pain, Denies urinary incontinence and Denies urinary urgency Musculoskeletal Denies neck pain Integumentary/Breasts Denies pruritus, Denies erythema, Denies rash and Denies wounds Neurologic Denies loss of vision and Denies weakness Endocrine Denies fatigue and Denies flushing Hematologic/Lymphatic Denies easy bruising Allergic/Immunologic Denies wheezing Exam <HERMES Haskins - Last Filed: 03/20/18 22:17> Initial Vital Signs Initial Vital Signs: Vital Signs Pulse Rate 92 H 03/20/18 11:09 Respiratory Rate 14 03/20/18 11:09 Blood Pressure 162/92 H 03/20/18 11:09 Pulse Oximetry 98 03/20/18 11:09 Const General: cooperative and well developed Nutritional Appearance: well nourished Orientation: alert, awake, oriented x3 and not confused [facility] Mouth: oral mucosae normal and moist mucous membranes Eyes Conjunctivae: conjunctivae normal Sclera: sclerae normal Pupils: PERRL EOM: EOM intact bilaterally Chest Chest: normal inspection of the chest Resp Effort & Inspection: normal respiratory effort, able to speak in complete sentences, no respiratory distress and no use of accessory muscles Auscultation: clear to auscultation bilaterally, no rales, no rhonchi and no wheezes Cardio Rate: regular rate Rhythm: regular rhythm Heart Sounds: no click, no gallops, no murmurs and no rubs Pulses: normal peripheral pulses GI Inspection: non-distended Palpation: soft, no hepatosplenomegaly, No guarding, No pulsatile mass and tender (Bilateral lower abdomen) Auscultation: normal bowel sounds General: No CVA tenderness Skin General: no rashes or lesions noted, No jaundice and No petechiae Neuro General: alert, oriented x3, gait normal and no focal motor deficits Speech: speech normal <Radha Tolbert DO - Last Filed: 03/26/18 21:04> Initial Vital Signs Initial Vital Signs: Vital Signs Pulse Rate 92 H 03/20/18 11:09 Respiratory Rate 14 03/20/18 11:09 Blood Pressure 162/92 H 03/20/18 11:09 Pulse Oximetry 98 03/20/18 11:09 Course <HERMES Haskins - Last Filed: 03/20/18 22:17> Orders Ordered: Discontinued Medications Sodium Chloride (Normal Saline 0.9%) 1,000 mls @ 150 mls/hr IV CONT INES Last Infusion: 03/20/18 15:36 Dose: 0 mls/hr Infusion: 03/20/18 13:43 Dose: 150 mls/hr Admin: 03/20/18 13:06 Dose: 150 mls/hr Vital Signs - 8 hr 03/20/18 11:09 03/20/18 12:00 03/20/18 12:29 Temperature 98.3 F Pulse Rate 92 H 85 85 Respiratory Rate 14 16 16 Blood Pressure 159/96 H Blood Pressure [Right Arm] 162/92 H 154/86 H Pulse Oximetry 98 97 97 03/20/18 13:47 Temperature Pulse Rate 85 Respiratory Rate 13 Blood Pressure Blood Pressure [Right Arm] 143/84 H Pulse Oximetry 99 <Radha Tolbert DO - Last Filed: 03/26/18 21:04> Orders Ordered: Discontinued Medications Sodium Chloride (Normal Saline 0.9%) 1,000 mls @ 150 mls/hr IV CONT INES Last Infusion: 03/20/18 15:36 Dose: 0 mls/hr Infusion: 03/20/18 13:43 Dose: 150 mls/hr Admin: 03/20/18 13:06 Dose: 150 mls/hr Vital Signs - 8 hr 03/20/18 11:09 03/20/18 12:00 03/20/18 12:29 Temperature 98.3 F Pulse Rate 92 H 85 85 Respiratory Rate 14 16 16 Blood Pressure 159/96 H Blood Pressure [Right Arm] 162/92 H 154/86 H Pulse Oximetry 98 97 97 03/20/18 13:47 Temperature Pulse Rate 85 Respiratory Rate 13 Blood Pressure Blood Pressure [Right Arm] 143/84 H Pulse Oximetry 99 MDM - Abdominal Pain <HERMES Haskins - Last Filed: 03/20/18 22:17> Lab Data Result diagrams: 03/20/18 12:59 03/20/18 12:59 Lab Results 03/20/18 03/20/18 03/20/18 Range/Units 12:43 12:59 12:59 WBC 7.9 (4.5-11.0) X10^3/uL RBC 4.89 (4.0-5.2) X10^6/uL Hgb 14.1 (12.0-16.0) g/dL Hct 43.5 (36-46) % MCV 89.0 (80-100) fL MCH 28.9 (26-34) PG MCHC 32.5 (30-36) % RDW 16.6 H (11.6-14.8) % Plt Count 245 (150-400) X10^3/uL Neut % (Auto) 58.9 (50-75) % Lymph % (Auto) 30.4 (25-40) % [place] % (Auto) 7.1 (3-14) % Eos % (Auto) 2.4 (2-4) % Baso % (Auto) 1.2 (0-2) % Neut # (Auto) 4600 (1666-2709) /uL Sodium 145 (137-145) mmol/L Potassium 4.1 (3.4-5.1) mmol/L Chloride 105 (98-107) mmol/L Carbon Dioxide 28 (22-32) mmol/L BUN 12 (7-17) mg/dL Creatinine 0.80 (0.52-1.04) mg/dL Estimated GFR > 60.0 (>60) mL/min BUN/Creatinine Ratio 15.0 (6-22) Glucose 103 (80-110) mg/dL Calcium 9.5 (8.4-10.2) mg/dL Total Bilirubin 0.3 (0.2-1.3) mg/dL AST 37 H (14-36) IU/L ALT 49 (9-52) IU/L Alkaline Phosphatase 93 (38-126) U/L Total Creatine Kinase 62 (30-135) U/L CK-MB (CK-2) TNP CK-MB (CK-2) Rel Index TNP Troponin I < 0.012 (0.01-0.034) ng/mL Total Protein 8.2 (6.3-8.2) g/dL Albumin 4.7 (3.5-5.0) g/dL Globulin 3.5 (1.7-4.1) g/dL Albumin/Globulin Ratio 1.3 (1.0-2.8) Lipase 85 (23-300) U/L Urine RBC 0-1/hpf (0-5/HPF) Urine WBC 0-1/hpf (0-5/HPF) Ur Squamous Epith Cells 0-1 /hpf Urine Bacteria None seen (None) Ur Culture Indicated? Cult not indicated Micro UA Comment Not Reportable Point of care testing: Urine Dip Bedside Urine Glucose Negative Bedside Urine Bilirubin - Negative Bedside Urine Ketone - Negative Urine Specific [place] 1.010 Bedside Urine Occult Blood + Bedside Urine pH 7.0 Bedside Urine Protein - Negative Bedside Urine Urobilinogen - Negative Bedside Urine Nitrite - Negative Bedside Urine Leukocytes - Negative Esterase Imaging Data CT scan - abdomen: Radiologist's impression: [address] [address] [address] Scan Report Signed Patient: Palmira Bah [facility]#: [id number] : 5Acct:[id number] Age/Sex: 63 / FDate of Service: 03/20/18 Loc: ED Accession Number: [id number] Procedure: CT abdomen pelvis w con Ordering Provider: Jesus Roman PROCEDURE: CT ABDOMEN PELVIS W CON INDICATIONS: Right lower quadrant pain history of colon resection TECHNIQUE: After the administration of oral and intravenous contrast, 5 mm thick sections acquired from the diaphragms to the symphysis. 5 mm thick coronal and sagittal reformats were performed. For radiation dose reduction, the following was used: automated exposure control, adjustment of mA and/or kV according to patient size. COMPARISON: [facility], CT, CT ABDOMEN PELVIS W CON, 02/07/2018, 11:02. FINDINGS: Image quality: Excellent. ABDOMEN: Lung bases: Lung bases are clear. Heart size is normal. Solid organs: Liver is normal in size and enhancement. There is hepatic steatosis. Gallbladder is within normal limits. Biliary system is non-dilated. Pancreas enhances normally. Spleen is normal in size and enhancement. No adrenal nodules. Kidneys are normal in size and enhancement, without hydronephrosis. Peritoneum and bowel: Stomach, small bowel, and colon loops are normal in caliber and wall thickness. No free fluid or air. Appendix is visualized and is within normal limits. Previous surgery involving sigmoid colon is seen with anastomosis site appears intact. Nodes and vessels: No retroperitoneal or mesenteric adenopathy. Aorta and inferior vena cava are normal in caliber. Miscellaneous: No ventral hernias. PELVIS: Genitourinary: Bladder wall thickness is normal. Miscellaneous: No inguinal hernias or adenopathy. Bones: No suspicious bony lesions. No vertebral body compression fractures. IMPRESSION: 1. No bowel obstruction. No free fluid or free air. Normal appendix. Prior partial colon resection with intact anastomosis. 2. No renal stone or hydronephrosis. 3. Hepatic steatosis. Dictated by: Charly Mejia M.D. on 03/20/2018 at 13:39 Approved by: Charly Mejia M.D. on 03/20/2018 at 13:42 Chest x-ray: Radiologist's impression: [address] [address] XRay Report Signed Patient: Palmira Bah [facility]#: [id number] : 5Acct:[id number] Age/Sex: 63 / FDate of Service: 03/20/18 Loc: ED Accession Number: [id number] Procedure: XR chest 1V Ordering Provider: Jesus Roman PROCEDURE: XR CHEST 1V INDICATIONS: Chest pain on and off for last month TECHNIQUE: One view of the chest was acquired. COMPARISON: [facility], CR, CHEST 2 VIEW, 06/29/2017, 17:21. FINDINGS: Surgical changes and devices: None. Lungs and pleura: No pleural effusions or pneumothorax. Lungs are clear. Mediastinum: Mediastinal contours appear normal. Heart size is normal. Bones and chest wall: No suspicious bony lesions. Overlying soft tissues appear unremarkable. IMPRESSION: Negative chest. No acute cardiopulmonary process is evident. Dictated by: Ruy Galindo M.D. on 03/20/2018 at 12:26 Approved by: Ruy Galindo M.D. on 03/20/2018 at 12:32 ECG Data Interpretation: EKG shows normal sinus rhythm with no ST elevation or depression. No ectopy. Ventricular rate of 98. Pr interval of 159. QRS duration of 87. QTC of 309 MDM Narrative Medical decision making narrative: EKG shows normal sinus rhythm with no ST elevation or depression. No ectopy. Cardiac enzymes were obtained and were negative. Chest x-ray was negative for any acute findings. CBC and Chem panel were obtained were unremarkable. Lipase was negative. CT of the abdomen was negative for any acute findings. Urinalysis was negative for urinary tract infection. Suspect that her chest pain is related to anxiety that is currently being treated at she states that the Xanax does help her chest pain. Recommend that she does obtain the stress test as already ordered by her primary care provider for further evaluation. No acute findings are found for her abdominal pain. Suspect this is abdominal wall pain. She has a appointment with her primary care provider tomorrow will have her follow up tomorrow. Use currently prescribed medications as prescribed for any worsening symptoms return to the emergency room. <Radha Tolbert, - Last Filed: 03/26/18 21:04> Lab Data Lab Results 03/20/18 03/20/18 03/20/18 Range/Units 12:43 12:59 12:59 WBC 7.9 (4.5-11.0) X10^3/uL RBC 4.89 (4.0-5.2) X10^6/uL Hgb 14.1 (12.0-16.0) g/dL Hct 43.5 (36-46) % MCV 89.0 (80-100) fL MCH 28.9 (26-34) PG MCHC 32.5 (30-36) % RDW 16.6 H (11.6-14.8) % Plt Count 245 (150-400) X10^3/uL Neut % (Auto) 58.9 (50-75) % Lymph % (Auto) 30.4 (25-40) % [place] % (Auto) 7.1 (3-14) % Eos % (Auto) 2.4 (2-4) % Baso % (Auto) 1.2 (0-2) % Neut # (Auto) 4600 (5194-8213) /uL Sodium 145 (137-145) mmol/L Potassium 4.1 (3.4-5.1) mmol/L Chloride 105 (98-107) mmol/L Carbon Dioxide 28 (22-32) mmol/L BUN 12 (7-17) mg/dL Creatinine 0.80 (0.52-1.04) mg/dL Estimated GFR > 60.0 (>60) mL/min BUN/Creatinine Ratio 15.0 (6-22) Glucose 103 (80-110) mg/dL Calcium 9.5 (8.4-10.2) mg/dL Total Bilirubin 0.3 (0.2-1.3) mg/dL AST 37 H (14-36) IU/L ALT 49 (9-52) IU/L Alkaline Phosphatase 93 (38-126) U/L Total Creatine Kinase 62 (30-135) U/L CK-MB (CK-2) TNP CK-MB (CK-2) Rel Index TNP Troponin I < 0.012 (0.01-0.034) ng/mL Total Protein 8.2 (6.3-8.2) g/dL Albumin 4.7 (3.5-5.0) g/dL Globulin 3.5 (1.7-4.1) g/dL Albumin/Globulin Ratio 1.3 (1.0-2.8) Lipase 85 (23-300) U/L Urine RBC 0-1/hpf (0-5/HPF) Urine WBC 0-1/hpf (0-5/HPF) Ur Squamous Epith Cells 0-1 /hpf Urine Bacteria None seen (None) Ur Culture Indicated? Cult not indicated Micro UA Comment Not Reportable Point of care testing: Urine Dip Bedside Urine Glucose Negative Bedside Urine Bilirubin - Negative Bedside Urine Ketone - Negative Urine Specific [place] 1.010 Bedside Urine Occult Blood + Bedside Urine pH 7.0 Bedside Urine Protein - Negative Bedside Urine Urobilinogen - Negative Bedside Urine Nitrite - Negative Bedside Urine Leukocytes - Negative Esterase Discharge Plan Departure Patient Disposition: Home Clinical Impression: Abdominal pain, Chest pain Discharge Date/Time: 03/20/18 15:36 Interventions: ED Discharge Assessment Last Done: 03/20/18 15:37 Instructions: DI for Abdominal Pain-Adult Activity Restrictions/Additional Instructions: Laboratory results and cardiac markers today were unremarkable. CT of the abdomen was obtained was negative for any acute findings. Chest x-ray was negative for any acute findings. EKG today was unremarkable. Suspect that her chest pain is due to anxiety issues as already suspected by her primary care provider. Use currently prescribed medications as directed. Follow up with her primary care provider tomorrow for re-evaluation. Recommend the stress test as already scheduled for further evaluation. Suspect that abdominal pain is due to abdominal wall pain. Use [id number] Tylenol as needed for any discomfort. For any worsening symptoms return to the emergency room. Prescriptions: No Action estradiol [Vagifem] 10 MCG tablet 10 mcg VG SEE INSTRUCTIONS Qty: 0 RF: 0 methotrexate sodium (PF) 25 mg/mL solution 0.4 ml subcut QWEEK RF: 0 diclofenac sodium 1 % gel 1 applic Topical DIRECTED RF: 0 golimumab [Simponi] 50 mg/0.5 mL syringe 1 dose subcut QMONTH RF: 0 levothyroxine [Tirosint] 50 mcg capsule 50 mcg PO DAILY RF: 0 pravastatin [Pravachol] 20 mg tablet 20 mg PO BEDTIME RF: 0 alprazolam 0.25 mg tablet 0.125 mg PO PRN PRN (Reason: Anxiety) RF: 0 amitriptyline 10 mg tablet 5 mg PO BEDTIME RF: 0 cholecalciferol (vitamin D3) [Vitamin D3] 5,000 unit Tablet 5,000 unit PO DAILY RF: 0 Referrals: Abbey Cramer MD [Primary Care Provider] - <Radha Tolbert DO - Last Filed: 03/26/18 21:04> Cosign ED Attending Cosignature Attestation: I was immediately available in the department for consultation. This documentation has been reviewed and I agree with assessment and plan. Supervised by Radha Tolbert DO
--- NOTE | 2018-03-20 12:28 | PC.NURSE ---
lower abdominal pain worsen the last week, with acid relux and chest discomfort, ? 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 abdominal pain worsen with movement.
[2018-03-20 12:29] VITALS: BP 159/96; PULSE 85; RESP 16; TEMP 36.8; O2SAT 97
--- NOTE | 2018-03-20 12:30 | DI.RAD.S_ITS ---
PROCEDURE: XR CHEST 1V INDICATIONS: Chest pain on and off for last month TECHNIQUE: One view of the chest was acquired. COMPARISON: [facility], , CHEST 2 VIEW, 06/29/2017, 17:21. FINDINGS: Surgical changes and devices: None. Lungs and pleura: No pleural effusions or pneumothorax. Lungs are clear. Mediastinum: Mediastinal contours appear normal. Heart size is normal. Bones and chest wall: No suspicious bony lesions. Overlying soft tissues appear unremarkable. IMPRESSION: Negative chest. No acute cardiopulmonary process is evident. Dictated by: Ruy Galindo M.D. on 03/20/2018 at 12:26 Approved by: Ruy Galindo M.D. on 03/20/2018 at 12:32
--- NOTE | 2018-03-20 12:30 | PC.NURSE ---
status post colon resection a month ago. also pt reports, with interstitial cystitis, I always have blood
[2018-03-20 12:53] LABS: Bacteria Urine None Seen
[2018-03-20 13:00] LABS: Culture Indicated Urine Cult Not Indicated; RBC Urine 0-1/HPF (0-5/HPF); Squamous Epithelial Cell Urine 0-1 /HPF; WBC Urine 0-1/HPF (0-5/HPF)
--- NOTE | 2018-03-20 13:04 | DI.CT.S_ITS ---
PROCEDURE: CT ABDOMEN PELVIS W CON INDICATIONS: Right lower quadrant pain history of colon resection TECHNIQUE: After the administration of oral and intravenous contrast, 5 mm thick sections acquired from the diaphragms to the symphysis. 5 mm thick coronal and sagittal reformats were performed. For radiation dose reduction, the following was used: automated exposure control, adjustment of mA and/or kV according to patient size. COMPARISON: [facility], CT, CT ABDOMEN PELVIS W CON, 02/07/2018, 11:02. FINDINGS: Image quality: Excellent. ABDOMEN: Lung bases: Lung bases are clear. Heart size is normal. Solid organs: Liver is normal in size and enhancement. There is hepatic steatosis. Gallbladder is within normal limits. Biliary system is non-dilated. Pancreas enhances normally. Spleen is normal in size and enhancement. No adrenal nodules. Kidneys are normal in size and enhancement, without hydronephrosis. Peritoneum and bowel: Stomach, small bowel, and colon loops are normal in caliber and wall thickness. No free fluid or air. Appendix is visualized and is within normal limits. Previous surgery involving sigmoid colon is seen with anastomosis site appears intact. Nodes and vessels: No retroperitoneal or mesenteric adenopathy. Aorta and inferior vena cava are normal in caliber. Miscellaneous: No ventral hernias. PELVIS: Genitourinary: Bladder wall thickness is normal. Miscellaneous: No inguinal hernias or adenopathy. Bones: No suspicious bony lesions. No vertebral body compression fractures. IMPRESSION: 1. No bowel obstruction. No free fluid or free air. Normal appendix. Prior partial colon resection with intact anastomosis. 2. No renal stone or hydronephrosis. 3. Hepatic steatosis. Dictated by: Charly Mejia M.D. on 03/20/2018 at 13:39 Approved by: Charly Mejia M.D. on 03/20/2018 at 13:42
[2018-03-20] MEDS: SODIUM CHLORIDE 0.9% 1,000 ML 150 ML IV (13:06)
[2018-03-20 13:10] LABS: Add Manual Diff / Slide Review NO; Basophils Percent Auto 1.2 % (0-2); Eosinophils Percent Auto 2.4 % (2-4); Hematocrit 43.5 % (36-46); Hemoglobin 14.1 g/dL (12.0-16.0); Lymphocytes Percent Auto 30.4 % (25-40); Mean Corpuscular HGB Conc 32.5 % (30-36); Mean Corpuscular Hemoglobin 28.9 PG (26-34); Monocytes Percent Auto 7.1 % (3-14); Neutrophils Absolute Auto 4600 /uL (3000-5900); Neutrophils Percent Auto 58.9 % (50-75); Platelet Count 245 X10^3/uL (150-400); Red Blood Cell Count 4.89 X10^6/uL (4.0-5.2); Red Cell Distribution Width 16.6 % (11.6-14.8); White Blood Cell Count 7.9 X10^3/uL (4.5-11.0)
[2018-03-20 13:26] LABS: Alanine Aminotransferase 49 IU/L (9-52); Albumin 4.7 g/dL (3.5-5.0); Albumin Globulin Ratio 1.3 (1.0-2.8); Alkaline Phosphatase 93 U/L (38-126); Aspartate Aminotransferase 37 IU/L (14-36); Bilirubin Total 0.3 mg/dL (0.2-1.3); Blood Urea Nitrogen 12 mg/dL (7-17); Calcium 9.5 mg/dL (8.4-10.2); Carbon Dioxide 28 mmol/L (22-32); Chloride 105 mmol/L (98-107); Creatine Kinase 62 U/L (30-135); Estimated Glomerular Filt Rate > 60.0 mL/min (>60); Globulin 3.5 g/dL (1.7-4.1); Glucose 103 mg/dL (80-110); HEMOLYSIS < 15 (0-50); Lipase 85 U/L (23-300); Potassium 4.1 mmol/L (3.4-5.1); Sodium 145 mmol/L (137-145); Total Protein 8.2 g/dL (6.3-8.2)
[2018-03-20 13:39] LABS: Troponin I < 0.012 ng/mL (0.01-0.034)
[2018-03-20 13:47] VITALS: BP 143/84; PULSE 85; RESP 13; O2SAT 99
== END 2018-03-20 15:36 | disposition home or self-care (01) ==
PROVIDERS: Emergency Provider Nurse Practitioner Family; PCP Family Medicine
DX: R10.9 Unspecified abdominal pain (principal); R07.89 Other chest pain
CPT/HCPCS: 36591; 71045; 74177; 80053; 81003; 81015; 82550; 83690; 84484; 85025; 93005; 93010; 96360; 96361; 99283; 99285; Q9967

== ENCOUNTER → 2018-04-03 13:33 | Outpatient (CLI) | payer OTHER, SELFPAY ==
--- NOTE | 2018-04-03 13:34 | DI.NM.S_ITS ---
PROCEDURE: NC STAN PERF SPECT REST & STR Rest and exercise myocardial perfusion SPECT with gated imaging and ejection fraction RADIOPHARMACEUTICAL: 24.9 mCi Tc-99m sestamibi IV at rest and 25.4 mCi Tc-99m sestamibi IV at peak exercise. A two day-protocol was performed. INDICATIONS: chest pain TECHNIQUE: Radiopharmaceutical was injected at peak stress test, and also at rest. SPECT images were obtained. SPECT myocardial perfusion images were displayed in short axis, horizontal long axis, and vertical long axis views. Gated images were reviewed using [employer] software. COMPARISON: [place], [place], MYOCARDIAL PERFUSION, 12/30/2013, 14:46. CARDIAC STRESS: A standard [employer] treadmill exercise tolerance test was performed by the patient under the supervision of an attending staff. The patient exercised for 7 minutes and 24 seconds; functional aerobic impairment (RAMSES) is -12%. Hemodynamic data: There is normal blood pressure and heart rate response to exercise stress. Patient achieved 94% of maximum predicted heart rate at peak exercise. Symptoms: Patient denied chest pain during exercise. EKG: No diagnostic EKG changes of ischemia; no ectopy. FINDINGS: Raw data: There is good myocardial labeling by radiotracer. No significant motion artifacts. Ysyd-rm-jcwum ratio is 0.3 (normal is less than 0.38 for sestamibi tracer, and less than 0.50 for thallium tracer). Left ventricle function: Gated images demonstrate normal left ventricle wall thickening. No segmental wall motion abnormality. No transient ischemic dilation; TID is 0.54 (normal less than 1.3). The left ventricle resting end-diastolic volume is 95 mL. Left ventricle stress ejection fraction is 79%; normal values are above 45%. Myocardial perfusion: There is normal distribution of activity in the left and right ventricular myocardium. No fixed or reversible perfusion defects. IMPRESSION: Low risk, normal treadmill nuclear stress test. 1) Normal perfusion images with no evidence of ischemia or infarction. 2) Normal left ventricular size and systolic function (post stress EF of 79%). 3) No ECG evidence of ischemia. 4) No angina during the study. 5) Good exercise tolerance (10.1 METs, RAMSES -12%). Target heart rate achieved. 6) Compared to the nuclear stress test done 12/30/2013, no significant change. Dictated by: Eunice Jason MD on 04/04/2018 at 14:20 Approved by: Eunice Jason MD on 04/04/2018 at 14:23
--- NOTE | 2018-04-03 15:15 | P.PCN_ITS ---
Cardiac Stress Test Report Referral & Results Date Patient Seen: 04/03/18 Requesting provider: Abbey Cramer Indication: Chest pressure with activity Rest ECG: Unremarkable Procedure Note: Today following both written and verbal informed consent the patient was exercised according to a standard [employer] protocol patient went for a total of 7 min 24 sec achieving a maximum heart rate of 148 maximum systolic blood pressure of her 88. This is approximately 10.1 METS. Exercise was terminated at this point because of targets were met. Patient was also given Cardiolite through a previously started Hep-Lock IV by the nuclear fuel enrichment technician approximately 1 minute prior to the cessation of exercise. No ST-T segment changes identified Normal heart rate and blood pressure response to exercise Functional aerobic impairment rated approximately-12% on the active scale No dysrhythmia Impression: No evidence of ischemia. Excellent exercise capacity Perfusion imaging to be reported separately Please note: Actual ECG tracings can be found in the PACS system.
== END ==
PROVIDERS: PCP Family Medicine; Referring Provider Internal Medicine Rheumatology; Visit Provider Family Medicine
DX: R07.89 Other chest pain (principal)
CPT/HCPCS: 78452; 93016; 93017; 93018; A9502

== ENCOUNTER → 2018-04-16 08:25 | Outpatient (CLI) | payer OTHER, SELFPAY ==
[2018-04-16 11:13] LABS: Free T3, Triiodothyronine Free 3.71 pg/mL (2.77-5.27)
[2018-04-16 11:27] LABS: Thyroid Stimulating Hormone 1.69 uIU/mL (0.47-4.68)
== END ==
PROVIDERS: PCP Family Medicine; Visit Provider Family Medicine
DX: E03.9 Hypothyroidism, unspecified (principal)
CPT/HCPCS: 36415; 84439; 84443; 84481

== ENCOUNTER → 2018-06-18 08:15 | Outpatient (CLI) | payer OTHER, SELFPAY ==
[2018-06-18 09:38] LABS: Blood Urea Nitrogen 23 mg/dL (7-17); Calcium 9.3 mg/dL (8.4-10.2); Carbon Dioxide 29 mmol/L (22-32); Chloride 101 mmol/L (98-107); Glucose 108 mg/dL (80-110); HEMOLYSIS < 15 (0-50); Potassium 3.7 mmol/L (3.4-5.1); Sodium 139 mmol/L (137-145)
== END ==
PROVIDERS: PCP Family Medicine; Visit Provider Family Medicine
DX: I10 Essential (primary) hypertension (principal)
CPT/HCPCS: 36415; 80048

== ENCOUNTER → 2018-06-20 12:28 | Outpatient (CLI) | payer OTHER, SELFPAY ==
[2018-06-20 12:35] LABS: Bacteria Urine None Seen
[2018-06-20 12:46] LABS: Appearance Urine UA CLEAR; Bilirubin Urine UA NEGATIVE (NEGATIVE); Color Urine UA YELLOW; Glucose Urine UA NEGATIVE (Negative); Ketones Urine UA NEGATIVE (NEGATIVE); Leukocyte Esterase Urine UA NEGATIVE (NEGATIVE); Nitrite Urine UA NEGATIVE (Negative); Occult Blood Urine UA 2+ (Negative); Protein Urine UA NEGATIVE (Negative); Urobilinogen Urine UA 0.2 E.U./dL (0.2)
[2018-06-20 13:04] LABS: RBC Urine 1-5/HPF (0-5/HPF); Squamous Epithelial Cell Urine 0-1 /HPF; WBC Urine 0-1/HPF (0-5/HPF)
[2018-06-20 13:05] LABS: Calcium Oxalate Crystals Urine Occasional; Culture Indicated Urine Cult Not Indicated
== END ==
PROVIDERS: PCP Family Medicine; Visit Provider Family Medicine
DX: R35.0 Frequency of micturition (principal)
CPT/HCPCS: 81001

== ENCOUNTER → 2018-07-06 11:15 | Outpatient (CLI) | payer OTHER, SELFPAY ==
[2018-07-06 13:24] LABS: BUN Creatinine Ratio 17.8 (6-22); Blood Urea Nitrogen 16 mg/dL (7-17); Calcium 9.5 mg/dL (8.4-10.2); Carbon Dioxide 25 mmol/L (22-32); Chloride 104 mmol/L (98-107); Estimated Glomerular Filt Rate > 60.0 mL/min (>60); Glucose 101 mg/dL (80-110); HEMOLYSIS < 15 (0-50); Potassium 4.2 mmol/L (3.4-5.1); Sodium 139 mmol/L (137-145)
[2018-07-06 17:13] LABS: Vitamin D 25 Hydroxy (D3) 27.7 ng/mL (30.0-100.0)
== END ==
PROVIDERS: PCP Student in an Organized Health Care Education/Training Program; Visit Provider Student in an Organized Health Care Education/Training Program
DX: E55.9 Vitamin D deficiency, unspecified (principal); E87.1 Hypo-osmolality and hyponatremia
CPT/HCPCS: 36415; 80048; 82306

== ENCOUNTER → 2018-11-20 07:58 | Outpatient (CLI) | payer OTHER, SELFPAY ==
[2018-11-20 09:11] LABS: Hemoglobin A1C% w Est Avg Glu 5.4 % (4.0-6.0)
[2018-11-20 13:07] LABS: Alanine Aminotransferase 33 IU/L (9-52); Albumin 4.4 g/dL (3.5-5.0); Albumin Globulin Ratio 1.3 (1.0-2.8); Alkaline Phosphatase 113 U/L (38-126); Aspartate Aminotransferase 33 IU/L (14-36); BUN Creatinine Ratio 25.6 (6-22); Bilirubin Total 0.8 mg/dL (0.2-1.3); Blood Urea Nitrogen 23 mg/dL (7-17); Calcium 9.6 mg/dL (8.4-10.2); Carbon Dioxide 29 mmol/L (22-32); Chloride 103 mmol/L (98-107); Cholesterol 215 mg/dL (140-199); Estimated Glomerular Filt Rate > 60.0 mL/min (>60); Globulin 3.5 g/dL (1.7-4.1); Glucose 88 mg/dL (80-110); HDL Cholesterol 52 mg/dL (40-60); HEMOLYSIS < 15 (0-50); LDL Cholesterol Calculated 136 mg/dL (<100); Potassium 4.1 mmol/L (3.4-5.1); Sodium 141 mmol/L (137-145); Total Protein 7.9 g/dL (6.3-8.2); Triglycerides 135 mg/dL (35-150)
== END ==
PROVIDERS: PCP Student in an Organized Health Care Education/Training Program; Visit Provider Student in an Organized Health Care Education/Training Program
DX: E03.9 Hypothyroidism, unspecified (principal); M06.9 Rheumatoid arthritis, unspecified; E66.9 Obesity, unspecified; R73.09 Other abnormal glucose; E78.5 Hyperlipidemia, unspecified; Z79.899 Other long term (current) drug therapy
CPT/HCPCS: 36415; 80053; 80061; 83036

== ENCOUNTER → 2018-11-22 11:27 | Outpatient (CLI) | payer OTHER, SELFPAY ==
--- NOTE | 2018-11-22 | DI.CT.S_ITS ---
PROCEDURE: CT ABDOMEN PELVIS W CON INDICATIONS: Left lower quadrant pain TECHNIQUE: After the administration of oral and intravenous contrast, 5 mm thick sections acquired from the diaphragms to the symphysis. 5 mm thick coronal and sagittal reformats were performed. For radiation dose reduction, the following was used: automated exposure control, adjustment of mA and/or kV according to patient size. COMPARISON: [facility], CT, CT ABDOMEN PELVIS W CON, 03/20/2018, 13:18. FINDINGS: Image quality: Excellent. ABDOMEN: Lung bases: 1 mm nodule seen in the anterior right lung, grossly unchanged. No acute consolidation. Heart size is normal. Solid organs: Sub-5 mm hypodensity seen in the posterior segment and right hepatic lobe are grossly unchanged for example image 25 series 2, image 24 series 2. Gallbladder negative. Biliary system is non-dilated. Pancreas enhances normally. Spleen is normal in size and enhancement. No adrenal nodules. Kidneys are normal in size and enhancement, without hydronephrosis. Subcentimeter possible small left renal cyst although too small to characterize accurately. This appears unchanged. Peritoneum and bowel: Stomach, small bowel, and colon loops are normal in caliber and wall thickness. No free fluid or air. Bowel surgical anastomosis seen in the distal sigmoid colon. Colonic diverticulosis is seen without evidence of acute complication. Nodes and vessels: No retroperitoneal or mesenteric adenopathy. Aorta and inferior vena cava are normal in caliber. Miscellaneous: No ventral hernias. PELVIS: Genitourinary: Bladder wall thickness is normal. There multiple bilateral pelvic phleboliths in the region of the course of the distal ureters bilaterally. No ureterectasis is seen. Miscellaneous: No inguinal hernias or adenopathy. Bones: No suspicious bony lesions. No vertebral body compression fractures. IMPRESSION: No visualized specific etiology for left lower quadrant pain. Incidental colonic diverticulosis. Normal appearance of the appendix. Dictated by: Frederick Daigle M.D. on 11/22/2018 at 13:53 Approved by: Frederick Daigle M.D. on 11/22/2018 at 14:00
[2018-11-22 16:18] LABS: Creatinine Urine Random 62.4 mg/dL; Sodium Urine Random 40 mmol/L (30-90)
[2018-11-24 16:16] LABS: Osmolality Urine 414 mOsm/kg (50-1200)
== END ==
PROVIDERS: Family Provider Student in an Organized Health Care Education/Training Program; PCP Student in an Organized Health Care Education/Training Program; Visit Provider Surgery
DX: K57.90 Diverticulosis of intestine, part unspecified, without perforation or abscess without bleeding (principal); R10.32 Left lower quadrant pain; R35.8 Other polyuria
CPT/HCPCS: 74177; 82570; 83935; 84300

== ENCOUNTER → 2019-02-06 09:06 | Outpatient (CLI) | payer OTHER, SELFPAY ==
[2019-02-06 10:37] LABS: Free T4, Direct Thyroxine 1.36 ng/dL (0.78-2.19)
[2019-02-06 10:51] LABS: Thyroid Stimulating Hormone 2.18 uIU/mL (0.47-4.68)
[2019-02-06 12:03] LABS: Alanine Aminotransferase 38 IU/L (9-52); Albumin 4.4 g/dL (3.5-5.0); Albumin Globulin Ratio 1.3 (1.0-2.8); Alkaline Phosphatase 114 U/L (38-126); Aspartate Aminotransferase 34 IU/L (14-36); BUN Creatinine Ratio 22.2 (6-22); Bilirubin Total 0.5 mg/dL (0.2-1.3); Blood Urea Nitrogen 20 mg/dL (7-17); Calcium 9.5 mg/dL (8.4-10.2); Carbon Dioxide 28 mmol/L (22-32); Chloride 105 mmol/L (98-107); Estimated Glomerular Filt Rate > 60.0 mL/min (>60); Globulin 3.3 g/dL (1.7-4.1); Glucose 101 mg/dL (80-110); HEMOLYSIS < 15 (0-50); Potassium 4.4 mmol/L (3.4-5.1); Sodium 139 mmol/L (137-145); Total Protein 7.7 g/dL (6.3-8.2)
[2019-02-06 12:19] LABS: Vitamin D 25 Hydroxy (D3) 29.7 ng/mL (30.0-100.0)
[2019-02-08 15:52] LABS: Triiodothyronine T3 Total 109 ng/dL (76-181)
== END ==
PROVIDERS: PCP Student in an Organized Health Care Education/Training Program; Visit Provider Internal Medicine
DX: E03.9 Hypothyroidism, unspecified (principal); I10 Essential (primary) hypertension; E55.9 Vitamin D deficiency, unspecified
CPT/HCPCS: 36415; 80053; 82306; 84439; 84443; 84480

== ENCOUNTER → 2019-02-14 12:53 | Outpatient (CLI) | payer OTHER, SELFPAY ==
[2019-02-14 13:40] LABS: Hematocrit 42.2 % (36-46); Hemoglobin 14.2 g/dL (12.0-16.0); Mean Corpuscular HGB Conc 33.6 % (30-36); Mean Corpuscular Hemoglobin 30.5 PG (26-34); Mean Corpuscular Volume 90.8 fL (80-100); Platelet Count 240 X10^3/uL (150-400); Red Blood Cell Count 4.65 X10^6/uL (4.0-5.2); Red Cell Distribution Width 14.5 % (11.6-14.8); White Blood Cell Count 8.3 X10^3/uL (4.5-11.0)
[2019-02-14 13:50] LABS: BUN Creatinine Ratio 21.3 (6-22); Blood Urea Nitrogen 17 mg/dL (7-17); Calcium 9.9 mg/dL (8.4-10.2); Carbon Dioxide 29 mmol/L (22-32); Chloride 103 mmol/L (98-107); Estimated Glomerular Filt Rate > 60.0 mL/min (>60); Glucose 104 mg/dL (80-110); HEMOLYSIS < 15 (0-50); Potassium 4.5 mmol/L (3.4-5.1); Sodium 140 mmol/L (137-145)
[2019-02-14 14:36] LABS: Bacteria Urine None Seen; WBC Urine None Seen (0-5/HPF)
[2019-02-14 14:52] LABS: Appearance Urine UA CLEAR; Bilirubin Urine UA NEGATIVE (NEGATIVE); Color Urine UA YELLOW; Glucose Urine UA NEGATIVE (Negative); Ketones Urine UA NEGATIVE (NEGATIVE); Leukocyte Esterase Urine UA NEGATIVE (NEGATIVE); Nitrite Urine UA NEGATIVE (Negative); Occult Blood Urine UA 1+ (Negative); Protein Urine UA NEGATIVE (Negative); Specific Gravity Urine UA <=1.005 (1.000-1.035); Urobilinogen Urine UA 0.2 E.U./dL (0.2)
[2019-02-14 15:57] LABS: Culture Indicated Urine Cult Not Indicated; RBC Urine 1-5/HPF (0-5/HPF)
== END ==
PROVIDERS: Visit Provider Nurse Practitioner Family
DX: R10.2 Pelvic and perineal pain (principal)
CPT/HCPCS: 36415; 80048; 81001; 85027; 87210

== ENCOUNTER → 2019-03-18 12:33 | Outpatient (CLI) | payer OTHER, SELFPAY ==
--- NOTE | 2019-03-18 | DI.MG.S_ITS ---
BILATERAL DIGITAL SCREENING MAMMOGRAM 3D/2D WITH CAD: 03/18/2019 CLINICAL: Routine screening. Family history of breast cancer. Comparison is made to exam dated: 03/01/2018 mammogram - [facility]. There are scattered fibroglandular elements in both breasts. Current study was also evaluated with a Computer Aided Detection (CAD) system. No significant masses, calcifications, or other findings are seen in either breast. There has been no significant interval change. IMPRESSION: NEGATIVE There is no mammographic evidence of malignancy. A 1 year screening mammogram is recommended. This exam was interpreted at Station ID: [id number]. NOTE: For mammograms, a report in lay terms will be sent to the patient. Approximately 15% of breast malignancies will not be visualized mammographically. In the management of a palpable breast mass, a negative mammogram must not discourage biopsy of a clinically suspicious lesion. Electronically Signed By: Ned arana/brian:03/18/2019 18:03:59 letter sent: Normal Exam ACR BI-RADS Category 1: Negative [id number]
== END ==
PROVIDERS: Visit Provider Student in an Organized Health Care Education/Training Program
DX: Z12.31 Encounter for screening mammogram for malignant neoplasm of breast (principal); Z80.3 Family history of malignant neoplasm of breast
CPT/HCPCS: 77063; 77067

== ENCOUNTER → 2019-06-10 14:26 | Outpatient (CLI) | payer OTHER, SELFPAY | PROVIDERS: PCP Family Medicine; Visit Provider Obstetrics & Gynecology | DX: N89.8 Other specified noninflammatory disorders of vagina (principal) | CPT/HCPCS: 87070; 87205; 87480; 87510; 87660 ==

== ENCOUNTER → 2019-06-28 11:27 | Outpatient (CLI) | payer OTHER, SELFPAY | PROVIDERS: PCP Family Medicine; Visit Provider Obstetrics & Gynecology | DX: L90.0 Lichen sclerosus et atrophicus (principal); N95.2 Postmenopausal atrophic vaginitis | CPT/HCPCS: 87070; 87205; 87480 ==

== ENCOUNTER → 2019-09-30 09:02 | Outpatient (CLI) | payer OTHER, SELFPAY ==
[2019-09-30 09:52] LABS: Add Manual Diff / Slide Review NO; Basophils Absolute Auto 100 /uL (0-100); Eosinophils Absolute Auto 300 /uL (0-450); Eosinophils Percent Auto 4.8 % (2-4); Hematocrit 41.7 % (36-46); Lymphocytes Absolute Auto 3200 /uL (1100-4500); Lymphocytes Percent Auto 44.2 % (25-40); Mean Corpuscular HGB Conc 33.6 % (30-36); Mean Corpuscular Hemoglobin 30.4 PG (26-34); Mean Corpuscular Volume 90.5 fL (80-100); Monocytes Absolute Auto 600 /uL (0-900); Monocytes Percent Auto 7.8 % (3-14); Neutrophils Absolute Auto 3100 /uL (1500-7000); Neutrophils Percent Auto 42.2 % (50-75); Platelet Count 230 X10^3/uL (150-400); Red Blood Cell Count 4.61 X10^6/uL (4.0-5.2); Red Cell Distribution Width 14.4 % (11.6-14.8); White Blood Cell Count 7.2 X10^3/uL (4.5-11.0)
[2019-09-30 10:31] LABS: Alanine Aminotransferase 27 IU/L (<35); Albumin 4.2 g/dL (3.5-5.0); Albumin Globulin Ratio 1.4 (1.0-2.8); Alkaline Phosphatase 113 U/L (38-126); Aspartate Aminotransferase 31 IU/L (14-36); BUN Creatinine Ratio 18.1 (6-22); Bilirubin Total 0.7 mg/dL (0.2-1.3); Blood Urea Nitrogen 15 mg/dL (7-17); Calcium 9.7 mg/dL (8.4-10.2); Carbon Dioxide 26 mmol/L (22-32); Chloride 104 mmol/L (98-107); Cholesterol 243 mg/dL (140-199); Estimated Glomerular Filt Rate > 60.0 mL/min (>60); Globulin 3.1 g/dL (1.7-4.1); Glucose 105 mg/dL (80-110); HDL Cholesterol 42 mg/dL (40-60); HEMOLYSIS < 15 (0-50); LDL Cholesterol Calculated 146 mg/dL (<100); Potassium 4.2 mmol/L (3.4-5.1); Sodium 138 mmol/L (137-145); Total Protein 7.3 g/dL (6.3-8.2); Triglycerides 273 mg/dL (35-150)
[2019-09-30 10:32] LABS: HEMOLYSIS < 15 (0-50); Iron 124 ug/dL (37-170)
[2019-09-30 10:45] LABS: Percent Iron Saturation 34 % (15-50); Total Iron Binding Capacity 363 ug/dL (265-497); Transferrin 281 mg/dL (206-381)
[2019-09-30 10:51] LABS: Vitamin D 25 Hydroxy (D3) 39.3 ng/mL (30.0-100.0)
[2019-09-30 10:52] LABS: Free T3, Triiodothyronine Free 3.78 pg/mL (2.77-5.27); Free T4, Direct Thyroxine 1.07 ng/dL (0.78-2.19)
[2019-09-30 11:05] LABS: Thyroid Stimulating Hormone 2.17 uIU/mL (0.47-4.68)
[2019-09-30 11:06] LABS: Ferritin 32 ng/mL (11-264)
[2019-10-03 18:26] LABS: C-Reactive Protein Quant < 0.5 mg/dL (<1.0)
== END ==
PROVIDERS: PCP Family Medicine; Referring Provider Family Medicine; Visit Provider Family Medicine
DX: E03.9 Hypothyroidism, unspecified (principal); E55.9 Vitamin D deficiency, unspecified; E66.9 Obesity, unspecified; E78.5 Hyperlipidemia, unspecified; I10 Essential (primary) hypertension; M06.9 Rheumatoid arthritis, unspecified; M85.80 Other specified disorders of bone density and structure, unspecified site
CPT/HCPCS: 36415; 80053; 80061; 82306; 82728; 83540; 83550; 84439; 84443; 84481; 85025; 86140

== ENCOUNTER 2019-10-07 13:00 | Outpatient (RCR) | payer OTHER, SELFPAY ==
--- NOTE | 2019-10-02 19:18 | PT.OIE ---
Current Diagnoses Low back pain (09/30/19) Other specified disorders of muscle (09/30/19) Past Medical History (Last Reviewed 06/28/19 @ 11:48 by Nayeli Rucker MD) Acquired hypothyroidism (Chronic) Anxiety (Chronic 2012) Chicken pox (Resolved 1959) Colon polyps (Resolved 09/2016) Degenerative joint disease (DJD) of lumbar spine (Chronic) Diverticular disease (Chronic 2008) Diverticulitis (Inactive) Essential hypertension (Chronic) Fibromyalgia (Chronic 1985) GERD (gastroesophageal reflux disease) (Chronic 2008) Hematuria (Chronic 1985) Hemorrhoids (Chronic 2016) Hyperlipidemia (Chronic) IBS (irritable bowel syndrome) (Chronic 2016) Interstitial cystitis (Chronic 1985) Interstitial cystitis (chronic) without hematuria (Chronic) Measles (Resolved) Mumps (Resolved) Mural thickening of sigmoid colon (Chronic) Obesity (Acute) Osteoarthritis (Chronic 1995) Osteoarthritis of knees, bilateral (Acute) Osteopenia (Chronic 2009) Osteoporosis (Chronic) Reflux esophagitis (Chronic) Rheumatoid arthritis (Chronic 1998) Rheumatoid arthritis (Acute) Thyroid nodule (Chronic 2013) Tinnitus (Chronic 2014) Uterine cancer (Resolved 04/2016) Past Surgical History (Last Reviewed 06/28/19 @ 11:48 by Nayeli Rucker MD) Anesthesia complication (Resolved) S/P partial colectomy (Resolved) Status post colonoscopy (Resolved 02/2009) Status post colonoscopy (Resolved 04/30/16) Status post endoscopy (Resolved 02/2009) Status post endoscopy (Resolved 04/30/16) Status post hysterectomy (Resolved 04/2016) Status post knee surgery (Resolved 04/2015) Status post tubal ligation (Resolved 1986) Visit Care Team Role Provider Type Damari Vargas DO Primary Care Provider Physician Specialty: Family Practice Address: [address] [place] [address], [address], [address] Email: [email or web address] Nayeli Rucker MD Attending Provider Physician Referring Provider Specialty: ASSISTANT IN NURSING Address: [address] [place] [address], [id number] Email: Physical Therapy Initial Evaluation PT-OP-A Visit Information Start: 09/30/19 18:27 Freq: Status: Active Protocol: Document 09/30/19 18:28 [facility] (Rec: 09/30/19 18:28 [facility] [email or web address]) Out-Patient Physical Therapy Visit Information Visit Information Visit Type Initial Evaluation Visit Start Time 15:15 Visit Stop Time 16:00 Total Visit Minutes 45 Visit Number 1 Evaluation Information Evaluation Date 09/30/19 PT-OP-B Current Condition Start: 09/30/19 18:27 Freq: Status: Active Protocol: Document 09/30/19 18:28 [facility] (Rec: 09/30/19 18:29 [facility] [email or web address]) Current Condition History of Current Condition Onset Date 2 weeks new onset History of Current Condition 64 year old female with c/o left anterior groin pain and left SI pain as well as a heaviness in her pelvic floor. Symptoms began after trying out a new exercise program with weights. She was doing a lot of squats with over head weights and felt pressure in her pelvic floor and pain in the anterior pelvis. Palmira describes pain rated 3-4/10 int he left anterior groin and left buttocks and back of the left leg. Prior Treatments and Tests Pt has a history of uterine cancer with radical hysterectomy in 2017. 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 Once the colon was removed all of her symptoms of interstitial cystitis were significantly reduced. She hasn't had much pain until now. Treatment Goals Patient/Caregiver Goals Pts goals are to decrease pain and decrease pelvic pressure. She is concerned that her diverticulitis has returned Current Functional Impairments (Reported) Functional Limitations- Mobility/Gait squatting increases pressure in the pelvic floor PT-OP-I Pelvic Floor Start: 09/30/19 18:27 Freq: Status: Active Protocol: Document 10/02/19 19:05 [facility] (Rec: 10/02/19 19:06 [facility] [email or web address]) Pelvic Floor Assessment Urine Pelvic Floor Surgery Yes Urinary Symptoms Falling Out Feeling/Heavy Leakage Size Small Leakage Cause Cough,Sneeze Voiding Frequency 6-10 voids per day Nocturia 3 Pelvic Clock Pelvic Clock 12-3 Atrophy Pelvic Clock 3-6 Atrophy Pelvic Clock 6-9 Atrophy Pelvic Clock 9-12 Atrophy Contraction Ability Voluntary Contraction Weak Manual Muscle Testing Left 3 Manual Muscle Testing Right 3 Manual Muscle Testing Anterior 3 Manual Muscle Testing Posterior 3 PT-OP-J Posture/Palpation/Skin Start: 09/30/19 18:27 Freq: Status: Active Protocol: Document 10/02/19 19:02 [facility] (Rec: 10/02/19 19:05 [facility] [email or web address]) Palpation Assessment Location Two Palpation Location left PSIS tenderness Palpation Findings Tenderness One Palpation Location tenderness to palpation over the left pubic bone Palpation Findings Tenderness Palpation Details left pubic upslip PT-OP-L Special Tests Start: 09/30/19 18:27 Freq: Status: Active Protocol: Document 10/02/19 19:02 [facility] (Rec: 10/02/19 19:05 [facility] [email or web address]) Special Tests Lumbar Spine Special Tests Other- 1 Test Results + ASLR test with left sided SI joint pain upon lifting the right leg PT-OP-M Strength Start: 09/30/19 18:27 Freq: Status: Active Protocol: Document 10/02/19 19:02 [facility] (Rec: 10/02/19 19:05 [facility] [email or web address]) Trunk Strength Trunk Manual Muscle Testing Core Stabilization decreased activation of the transverse abdominal musculature, + ALSR test PT-OP-Q Treatments Start: 09/30/19 18:27 Freq: Status: Active Protocol: Document 09/30/19 18:29 [facility] (Rec: 09/30/19 18:31 [facility] [email or web address]) Therapeutic Exercises Supine Exercises 2 Supine Exercise Name bilateral adductor squeeze Side bilateral Reps/Minutes x 10 reps 1 Supine Exercise Name pelvic floor long holds x 5-10 second on and 10 seconds relaxation Side bilateral Reps/Minutes x 10 reps Comments with pelvis elevated Manual Therapy Treatment Joint Mobilizations 1 Joint MET for left pubic upslip Comments 5 reps MET, pt tolerated treatment well PT-OP-T Assessment and Plan Start: 09/30/19 18:27 Freq: Status: Active Protocol: Document 09/30/19 19:06 [facility] (Rec: 10/02/19 19:18 [facility] [email or web address]) Physical Therapy Assessment Goals Three Impairment Decreased strength of the lower abdominal wall Skilled Nursing Goal (LTG) Palmira is demonstrating improved lower abdominal strength and ASLR is negative. She is able to facilitate her core prior to activities such as squats to avoid downward pressure on her pelvic floor. LTG Duration 8 weeks Four Impairment Decreased pelvic floor endurance Short Term Goal (STG) improve endurance of the pelvic floor to 10 seconds or greater in supine STG Duration 5 weeks Casino Surveillance Officer Goal (LTG) Improve endurance of the pelvic floor to 10 seconds or greater in standing LTG Duration 8 weeks Two Impairment Pelvic floor weakness and c/o pelvic heaviness Skilled Nursing Goal (LTG) Palmira is able to improve pelvic floor strength from 3/5 MMT to 4/5 or better for improved support of the pelvic organs. One Impairment Left pubic upslip and left anterior innominant rotation Short Term Goal (STG) With manual therapy techniques wer are able to correct alignment of the SI joint decreasing pain over the pubic bone and SI joing STG Duration 4 weeks Assessment Summary Assessment Palmira presents to physical therapy today with a reaggravation of pelvic pressure and heaviness. She reports she started a new exercise program that was a High intensity exercise program and she was lifting overhead weights with a squat when she began to feel a great deal of pelvic heaviness and pressure. She c/o left sided pain in the anterior pelvis as well as the left SI joint. She has a history of diverticulitis and has had 10 of her colong removed. Before this time she thought she had IC as her bladder was very sore and she had pelvic pressure sypmtoms. After her colon surgery in 2018 her bladder pain diminished. She reports she has been good these past couple of years until she started this program . She also tried running recently which also flared her . With examination today left left pelvis is rotated anteriorly and pubic bone is upslipped on the right. With pelvic floor examination she didn't appear to have guarding but she is weak in her levator ani. She is also weak in the transverse abdominal region with SI instability. Treatment for Palmira will include manual techniques to align the SI joint, pelvic floor and lower abdominal stabilization exercises and education on form with her exercise program. Physical Therapy Plan Frequency and Duration Frequency of Treatment 1x/Week Duration of Treatment 8 Plan of Care Start Date 09/30/19 Plan of Care End Date 11/25/19 Therapeutic Interventions Therapeutic Interventions Home Exercise Program,Manual Therapy,Neuromuscular Re- education,Patient/Caregiver Education,Self-Care/Home Management,Soft Tissue Mobilization Modalities Biofeedback Next Visit Focus/Plan Next Note Type Treatment Note Next Visit Plan begin EMG biofeedback for pelvic floor strengthening, recheck alignment of the SI joint
--- NOTE | 2019-10-02 19:19 | PT.OPPOC ---
Physical, Occupational & Speech Therapy At [facility] Current Diagnoses Low back pain (09/30/19) Other specified disorders of muscle (09/30/19) Visit Care Team Role Provider Type Damari Vargas DO Primary Care Provider Physician Specialty: Family Practice Address: [address] [place] [address], [address], [place], [address] Email: [email or web address] Nayeli Rucker MD Attending Provider Physician Referring Provider Specialty: NURSE CHEMICAL DEPENDENCY Address: [address] [place] [address], [id number] Email: Plan Of Care PT-OP-T Assessment and Plan Start: 09/30/19 18:27 Freq: Status: Active Protocol: Document 09/30/19 19:06 [facility] (Rec: 10/02/19 19:18 [facility] [email or web address]) Physical Therapy Assessment Goals Three Impairment Decreased strength of the lower abdominal wall Weatherization Specialist Goal (LTG) Palmira is demonstrating improved lower abdominal strength and ASLR is negative. She is able to facilitate her core prior to activities such as squats to avoid downward pressure on her pelvic floor. LTG Duration 8 weeks Four Impairment Decreased pelvic floor endurance Short Term Goal (STG) improve endurance of the pelvic floor to 10 seconds or greater in supine STG Duration 5 weeks Weatherization Specialist Goal (LTG) Improve endurance of the pelvic floor to 10 seconds or greater in standing LTG Duration 8 weeks Two Impairment Pelvic floor weakness and c/o pelvic heaviness Snf Goal (LTG) Palmira is able to improve pelvic floor strength from 3/5 MMT to 4/5 or better for improved support of the pelvic organs. One Impairment Left pubic upslip and left anterior innominant rotation Short Term Goal (STG) With manual therapy techniques we are able to correct alignment of the SI joint decreasing pain over the pubic bone and SI joint STG Duration 4 weeks Assessment Summary Assessment Palmira presents to physical therapy today with a re-aggravation of pelvic pressure and heaviness. She reports she started a new exercise program that was a High intensity exercise program and she was lifting overhead weights with a squat when she began to feel a great deal of pelvic heaviness and pressure. She c/o left sided pain in the anterior pelvis as well as the left SI joint. She has a history of diverticulitis and has had 10 of her sigmoid colon removed. Before this time she thought she had IC as her bladder was very sore and she had pelvic pressure symptoms. After her colon surgery in 2018 her bladder pain diminished. She reports she has been good these past couple of years until she started this program . She also tried running recently which also flared her . With examination today left left pelvis is rotated anteriorly and pubic bone is up slipped on the right. With pelvic floor examination she didn't appear to have guarding but she is weak in her levator ani. She is also weak in the transverse abdominal region with SI instability. Treatment for Palmira will include manual techniques to align the SI joint, pelvic floor and lower abdominal stabilization exercises and education on form with her exercise program. Physical Therapy Plan Frequency and Duration Frequency of Treatment 1x/Week Duration of Treatment 8 Plan of Care Start Date 09/30/19 Plan of Care End Date 11/25/19 Therapeutic Interventions Therapeutic Interventions Home Exercise Program,Manual Therapy,Neuromuscular Re- education,Patient/Caregiver Education,Self-Care/Home Management,Soft Tissue Mobilization Modalities Biofeedback Next Visit Focus/Plan Next Note Type Treatment Note Next Visit Plan begin EMG biofeedback for pelvic floor strengthening, recheck alignment of the SI joint Plan of Care Dates Plan of Care Start Date 09/30/19 Plan of Care End Date 11/25/19 Electronically Signed by: Alyx Tomlin, PT 10/02/19 [id number] Please Sign and Return: I have reviewed this Plan of Care and certify that the skilled therapy services above are required to meet the patient?s needs. Physician Signature Date Printed Name and Credentials Clinical Instructor Signature Printed Name and Credentials
--- NOTE | 2019-10-07 19:04 | PT.OTN ---
Current Diagnoses Low back pain (10/07/19) Other specified disorders of muscle (10/07/19) Physical Therapy Treatment Note PT-OP-A Visit Information Start: 09/30/19 18:27 Freq: Status: Active Protocol: Document 10/07/19 18:57 [facility] (Rec: 10/07/19 19:04 [facility] [email or web address]) Out-Patient Physical Therapy Visit Information Visit Information Visit Type Treatment Note Visit Start Time 13:00 Visit Stop Time 13:45 Total Visit Minutes 45 Visit Number 1 PT-OP-B Current Condition Start: 09/30/19 18:27 Freq: Status: Active Protocol: Document 09/30/19 18:28 [facility] (Rec: 09/30/19 18:29 [facility] [email or web address]) Current Condition History of Current Condition Onset Date 2 weeks new onset History of Current Condition 64 year old female with c/o left anterior groin pain and left SI pain as well as a heavyness in her pelvic floor. Symptoms began after trying out a new exercise program with weights. She was doing a lot of squats with over head weights and felt pressure in her pelvic floor and pain in the anterior pelvis. Palmira describes pain rated 3-4/10 int he left anterior groin and left buttocks and back of the left leg. Prior Treatments and Tests Pt has a history of uterine cancer with radical hysterectomy in 2017. 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 Once the colon was removed all of her symptoms of interstial cystitis were significantly reduced. She hasn't had much pain until now. Treatment Goals Patient/Caregiver Goals Pts goals are to decrease pain and decrease pelvic pressure. She is concerned that her diverticulitis has returned Current Functional Impairments (Reported) Functional Limitations- Mobility/Gait squatting increases pressure in the pelvic floor PT-OP-C Subjective Start: 09/30/19 18:27 Freq: Status: Active Protocol: Document 10/07/19 18:57 [facility] (Rec: 10/07/19 19:04 [facility] [email or web address]) OP-PT Subjective Patient Comments Patient Comments pt reports she felt immediate relief following last visit her her pelvis. She no longer felt the SI pain or anterior pain. [place]otes that she mowed her lawn today and this flared her back. PT-OP-I Pelvic Floor Start: 09/30/19 18:27 Freq: Status: Active Protocol: Document 10/02/19 19:05 [facility] (Rec: 10/02/19 19:06 [facility] [email or web address]) Pelvic Floor Assessment Urine Pelvic Floor Surgery Yes Urinary Symptoms Falling Out Feeling/Heavy Leakage Size Small Leakage Cause Cough,Sneeze Voiding Frequency 6-10 voids per day Nocturia 3 Pelvic Clock Pelvic Clock 12-3 Atrophy Pelvic Clock 3-6 Atrophy Pelvic Clock 6-9 Atrophy Pelvic Clock 9-12 Atrophy Contraction Ability Voluntary Contraction Weak Manual Muscle Testing Left 3 Manual Muscle Testing Right 3 Manual Muscle Testing Anterior 3 Manual Muscle Testing Posterior 3 PT-OP-J Posture/Palpation/Skin Start: 09/30/19 18:27 Freq: Status: Active Protocol: Document 10/02/19 19:02 [facility] (Rec: 10/02/19 19:05 [facility] [email or web address]) Palpation Assessment Location Two Palpation Location left PSIS tenderness Palpation Findings Tenderness One Palpation Location tenderness to palpation over the left pubic bone Palpation Findings Tenderness Palpation Details left pubic upslip PT-OP-L Special Tests Start: 09/30/19 18:27 Freq: Status: Active Protocol: Document 10/02/19 19:02 [facility] (Rec: 10/02/19 19:05 [facility] [email or web address]) Special Tests Lumbar Spine Special Tests Other- 1 Test Results + ASLR test with left sided SI joint pain upon lifting the right leg PT-OP-M Strength Start: 09/30/19 18:27 Freq: Status: Active Protocol: Document 10/02/19 19:02 [facility] (Rec: 10/02/19 19:05 [facility] [email or web address]) Trunk Strength Trunk Manual Muscle Testing Core Stabilization decreased activation of the transverse abdominal musculature, + ALSR test PT-OP-Q Treatments Start: 09/30/19 18:27 Freq: Status: Active Protocol: Document 10/07/19 18:57 [facility] (Rec: 10/07/19 19:04 [facility] [email or web address]) Therapeutic Exercises Supine Exercises 2 Supine Exercise Name bilateral adductor squeeze Side bilateral Reps/Minutes x 10 reps 1 Supine Exercise Name pelvic floor long holds x 5-10 second on and 10 seconds relaxation Side bilateral Reps/Minutes x 10 reps Comments with pelvis elevated Manual Therapy Treatment Soft Tissue Mobilization 1 Body Location MFR of the bladder and abdominal wall PT-OP-T Assessment and Plan Start: 09/30/19 18:27 Freq: Status: Active Protocol: Document 10/07/19 18:57 [facility] (Rec: 10/07/19 19:04 [facility] [email or web address]) Physical Therapy Assessment Assessment Summary Assessment resting tone 2.0 of pelvic floor, the muscles do get shakey with exercise but levator ani resting tone did not increase. Pt advised to start with 5 reps of pelvic floor contractions and then progress to 10 reps and 10 second hold as she is able to tolerate. Pt was shown how to elevate her pelvis Physical Therapy Plan Frequency and Duration Frequency of Treatment 1x/Week Duration of Treatment 8 Plan of Care Start Date 09/30/19 Plan of Care End Date 11/25/19 Therapeutic Interventions Therapeutic Interventions Home Exercise Program,Manual Therapy,Neuromuscular Re- education,Patient/Caregiver Education,Self-Care/Home Management,Soft Tissue Mobilization Modalities Biofeedback
--- NOTE | 2020-01-07 13:20 | PT.OPDS ---
Current Diagnoses Low back pain (10/07/19) Other specified disorders of muscle (10/07/19) Visit Care Team Role Provider Type Damari Vargas DO Primary Care Provider Physician Specialty: Family Practice Address: [address] [place] [address], [address], [place], [address] Email: [email or web address] Rucker MD Attending Provider Physician Referring Provider Specialty: LE[facility] [employer]STER Address: [address] [place] [address], [id number] Email: Visit Number Visit Number 1 Discharge Summary PT-OP-B Current Condition Start: 09/30/19 18:27 Freq: Status: Active Protocol: Document 09/30/19 18:28 [facility] (Rec: 09/30/19 18:29 [facility] [email or web address]) Current Condition History of Current Condition Onset Date 2 weeks new onset History of Current Condition 64 year old female with c/o left anterior groin pain and left SI pain as well as a heavyness in her pelvic floor. Symptoms began after trying out a new exercise program with weights. She was doing a lot of squats with over head weights and felt pressure in her pelvic floor and pain in the anterior pelvis. Palmira describes pain rated 3-4/10 int he left anterior groin and left buttocks and back of the left leg. Prior Treatments and Tests Pt has a history of uterine cancer with radical hysterectomy in 2017. 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 Once the colon was removed all of her symptoms of interstial cystitis were significantly reduced. She hasn't had much pain until now. Treatment Goals Patient/Caregiver Goals Pts goals are to decrease pain and decrease pelvic pressure. She is concerned that her diverticulitis has returned Current Functional Impairments (Reported) Functional Limitations- Mobility/Gait squatting increases pressure in the pelvic floor PT-OP-C Subjective Start: 09/30/19 18:27 Freq: Status: Active Protocol: Document 10/07/19 18:57 [facility] (Rec: 10/07/19 19:04 [facility] [email or web address]) OP-PT Subjective Patient Comments Patient Comments pt reports she felt immediate relief following last visit her her pelvis. She no longer felt the SI pain or anterior pain. [place] that she mowed her lawn today and this flared her back. PT-OP-I Pelvic Floor Start: 09/30/19 18:27 Freq: Status: Active Protocol: Document 10/02/19 19:05 [facility] (Rec: 10/02/19 19:06 [facility] [email or web address]) Pelvic Floor Assessment Urine Pelvic Floor Surgery Yes Urinary Symptoms Falling Out Feeling/Heavy Leakage Size Small Leakage Cause Cough,Sneeze Voiding Frequency 6-10 voids per day Nocturia 3 Pelvic Clock Pelvic Clock 12-3 Atrophy Pelvic Clock 3-6 Atrophy Pelvic Clock 6-9 Atrophy Pelvic Clock 9-12 Atrophy Contraction Ability Voluntary Contraction Weak Manual Muscle Testing Left 3 Manual Muscle Testing Right 3 Manual Muscle Testing Anterior 3 Manual Muscle Testing Posterior 3 PT-OP-J Posture/Palpation/Skin Start: 09/30/19 18:27 Freq: Status: Active Protocol: Document 10/02/19 19:02 [facility] (Rec: 10/02/19 19:05 [facility] [email or web address]) Palpation Assessment Location Two Palpation Location left PSIS tenderness Palpation Findings Tenderness One Palpation Location tenderness to palpation over the left pubic bone Palpation Findings Tenderness Palpation Details left pubic upslip PT-OP-L Special Tests Start: 09/30/19 18:27 Freq: Status: Active Protocol: Document 10/02/19 19:02 [facility] (Rec: 10/02/19 19:05 [facility] [email or web address]) Special Tests Lumbar Spine Special Tests Other- 1 Test Results + ASLR test with left sided SI joint pain upon lifting the right leg PT-OP-M Strength Start: 09/30/19 18:27 Freq: Status: Active Protocol: Document 10/02/19 19:02 [facility] (Rec: 10/02/19 19:05 [facility] [email or web address]) Trunk Strength Trunk Manual Muscle Testing Core Stabilization decreased activation of the transverse abdominal musculature, + ALSR test PT-OP-T Assessment and Plan Start: 09/30/19 18:27 Freq: Status: Active Protocol: Document 01/07/20 13:19 [facility] (Rec: 01/07/20 13:20 [facility] [email or web address]) Physical Therapy Assessment Assessment Summary Assessment Pt has not been seen since October 06. She will be dishcharged from PT at this time
== END 2020-02-03 13:24 ==
LOC: PHYS 13:00
PROVIDERS: PCP Family Medicine; Referring Provider Obstetrics & Gynecology; Visit Provider Obstetrics & Gynecology
DX: M62.89 Other specified disorders of muscle (principal); M54.5 Low back pain
CPT/HCPCS: 97110; 97140; 97161

== ENCOUNTER → 2019-10-11 07:24 | Outpatient (CLI) | payer OTHER, SELFPAY ==
[2019-10-11 08:12] LABS: Add Manual Diff / Slide Review NO; Basophils Absolute Auto 100 /uL (0-100); Basophils Percent Auto 1.1 % (0-2); Eosinophils Absolute Auto 300 /uL (0-450); Eosinophils Percent Auto 4.2 % (2-4); Hematocrit 41.7 % (36-46); Hemoglobin 13.9 g/dL (12.0-16.0); Lymphocytes Absolute Auto 3700 /uL (1100-4500); Lymphocytes Percent Auto 47.6 % (25-40); Mean Corpuscular HGB Conc 33.4 % (30-36); Mean Corpuscular Hemoglobin 30.4 PG (26-34); Mean Corpuscular Volume 91.1 fL (80-100); Monocytes Absolute Auto 500 /uL (0-900); Monocytes Percent Auto 6.8 % (3-14); Neutrophils Absolute Auto 3100 /uL (1500-7000); Neutrophils Percent Auto 40.3 % (50-75); Platelet Count 223 X10^3/uL (150-400); Red Blood Cell Count 4.57 X10^6/uL (4.0-5.2); Red Cell Distribution Width 14.6 % (11.6-14.8); White Blood Cell Count 7.8 X10^3/uL (4.5-11.0)
[2019-10-11 08:34] LABS: Erythrocyte Sedimentation Rate 7 MM/HR (0-20)
[2019-10-11 08:38] LABS: Hemoglobin A1C% w Est Avg Glu 5.7 % (4.0-6.0)
[2019-10-11 09:21] LABS: Amylase 39 U/L (30-110); Glucose 99 mg/dL (80-110); Lipase 81 U/L (23-300)
[2019-10-11 09:25] LABS: C-Reactive Protein Quant < 0.5 mg/dL (<1.0)
[2019-10-11 09:48] LABS: Cortisol Random 11.8 ug/dL
[2019-10-11 09:52] LABS: Ferritin 31 ng/mL (11-264)
[2019-10-11 15:06] LABS: Creatinine Urine Random 168.6 mg/dL
[2019-10-11 15:12] LABS: Microalbumi Creatinin Ratio Ur 7.7 ug/mg CR (<30); Microalbumin Urine Random 1.3 mg/dL (0-1.6)
[2019-10-12 06:10] LABS: Insulin Level Total 18.9 uIU/mL (2.6-24.9)
[2019-10-14 14:32] LABS: ANA Screen, IFA Negative (.)
[2019-10-15 08:08] LABS: Metanephrine,Plasma 19.5 pg/mL (0.0-88.0)
[2019-10-16 16:44] LABS: Immunoglobulin E 47 IU/mL (6-495)
[2019-10-17 11:09] LABS: Almond IgE <0.10 kU/L (Class 0); Cashew Nut IgE <0.10 kU/L (Class 0); Codfish Allergy IgE < 0.10 kU/L (Class 0); Egg White IgE <0.10 kU/L (Class 0); Hazelnut IgE <0.10 kU/L (Class 0); Milk IgE <0.10 kU/L (Class 0); Peanut IgE <0.10 kU/L (Class 0); Salmon Allergy IgE < 0.10 kU/L (Class 0); Scallop Allergy IgE < 0.10 kU/L (Class 0); Sesame seed Allergy IgE < 0.10 kU/L (Class 0); Shrimp IgE <0.10 kU/L (Class 0); Soybean IgE <0.10 kU/L (Class 0); Tuna Allergy IgE < 0.10 kU/L (Class 0); Walnut IgE <0.10 kU/L (Class 0); Wheat Allergy IgE < 0.10 kU/L (Class 0)
== END ==
PROVIDERS: PCP Family Medicine; Referring Provider Registered Nurse; Visit Provider Registered Nurse
DX: I10 Essential (primary) hypertension (principal); R68.89 Other general symptoms and signs; R45.1 Restlessness and agitation; R63.5 Abnormal weight gain
CPT/HCPCS: 36415; 82024; 82043; 82150; 82384; 82533; 82570; 82728; 82785; 82947; 83036; 83525; 83690; 83835; 85025; 85651; 86003; 86038; 86140

== ENCOUNTER → 2019-10-14 11:22 | Outpatient (CLI) | payer OTHER, SELFPAY ==
[2019-10-15 17:10] LABS: 24 Hour Ur Protein Calculated <90 mg/24 hr (30-150)
[2019-10-17 12:48] LABS: Dopamine, Ur 24hr 348 ug/24 hr (0-510); Epinephrine, U 24hr 6 ug/24 hr (0-20); Norepinephrine Ur 24hr 73 ug/24 hr (0-135)
[2019-10-17 20:36] LABS: Normetanephrine Total 414 ug/24 hr (131-612); Urine, Metanephrine 48 ug/L (Undefined); Urine, Normetanephrine 184 ug/L (Undefined)
[2019-10-22 07:09] LABS: Cortisol Fr ug/24hr urine 26 ug/24 hr (6-42); Cortisol, Free, Urine 9 ug/L (Undefined)
== END ==
PROVIDERS: PCP Family Medicine; Referring Provider Registered Nurse; Visit Provider Registered Nurse
DX: R03.0 Elevated blood-pressure reading, without diagnosis of hypertension (principal); R63.5 Abnormal weight gain; R45.1 Restlessness and agitation; G89.4 Chronic pain syndrome
CPT/HCPCS: 82384; 82530; 83835; 84156

== ENCOUNTER 2019-11-01 08:51 | Emergency (ER) | payer OTHER, SELFPAY ==
[2019-11-01] VITALS (9 sets, daily range): BP systolic 159–180; BP diastolic 74–85; PULSE 68–78; RESP 14–22; TEMP 37.7; O2SAT 97–99; BMI 30.6
--- NOTE | 2019-11-01 08:57 | DI.RAD.S_ITS ---
PROCEDURE: XR CHEST 1V INDICATIONS: chest pain TECHNIQUE: One view of the chest was acquired. COMPARISON: [facility], CR, XR CHEST 1V, 03/20/2018, 12:40. FINDINGS: Surgical changes and devices: None. Lungs and pleura: Lungs are clear. No pleural effusions or pneumothorax. Mediastinum: Mediastinal contours appear normal. Heart size is normal. Bones and chest wall: No suspicious bony lesions. Overlying soft tissues appear unremarkable. IMPRESSION: No acute cardiopulmonary process is evident. Dictated by: Ruy Galindo M.D. on 11/01/2019 at 8:52 Approved by: Ruy Galindo M.D. on 11/01/2019 at 8:53
--- NOTE | 2019-11-01 09:17 | ED.CHESTPAIN ---
HPI - Chest Pain General Chief Complaint: Chest Pain Stated Complaint: upper back/chest pain Time Seen by Provider: 11/01/19 09:09 Source: patient Mode of arrival: Family Vehicle Limitations: no limitations History of Present Illness HPI narrative: Patient is a 64-year-old female who presents with back and chest pain. She started a intermittent fasting diet she says she really was only eating 400 calories a day and lost about 14 lb in 2 weeks. She really she was not eating very much she started having headaches and not feeling well. She developed some thoracic back pain which radiated to her chest she has had increased burping she has had some abdominal pain as well. No nausea or vomiting. She does get short of breath when walking up hills however she walks every day it does not stop her it is not any worse although yesterday she did have to stop once. She walked a again last evening and did not have any issue. She has no known coronary artery disease, she is not diabetic but apparently her insulin level is elevated which is what started her on the intermittent fasting diet MD complaint: chest pain Related Data Home Medications Medication Instructions Recorded Confirmed cholecalciferol (vitamin D3) 5,000 unit PO DAILY 03/20/18 10/11/19 [Vitamin D3] diclofenac sodium 1 applic TOPICAL DIRECTED 03/20/18 10/11/19 methotrexate sodium (PF) 0.4 ml SUBCUT QWEEK 03/20/18 10/11/19 golimumab 100 mg/mL subcutaneous 200 mg SUBCUT ONCE 09/13/18 10/11/19 pen injector omega-3 fatty acids 1,000 mg 1,000 mg PO DAILY 11/21/18 10/11/19 capsule acetaminophen 500 mg tablet 500 mg PO Q4H PRN 04/30/19 10/11/19 Hyalo reverberatory skimmer TOPICAL 10/16/19 Previous Rx's Medication Instructions Recorded cyclobenzaprine 5 mg tablet 5 mg PO BEDTIME PRN #30 tab 11/21/18 amitriptyline 10 mg tablet 5 mg PO BEDTIME #45 tab 11/26/18 Estriol Vaginal Cream 0.1% 1 gram VAGINAL .COMPLEX #30 gram 06/10/19 Estradiol 0.05mg Vaginal 1 each VAGINAL .COMPLEX #30 each 06/28/19 Suppository in [place] Oil Base pravastatin 20 mg tablet 20 mg PO BEDTIME #90 tab 10/11/19 Tirosint 50 mcg capsule 50 mcg PO DAILY #90 cap NS 10/16/19 Allergies Allergy/AdvReac Type Severity Reaction Status Date / Time amoxicillin [From Augmentin] Allergy Intermediate Palpitation Verified 11/01/19 09:18 s clavulanic acid Allergy Intermediate Palpitation Verified 11/01/19 09:18 [From Augmentin] s cefuroxime [From CEFTIN] Allergy Mild swollen Verified 11/01/19 09:18 joints ciprofloxacin [CIPROFLOXACIN] Allergy Mild swollen Verified 11/01/19 09:18 tendons doxycycline [DOXYCYCLINE] Allergy Mild severe Verified 11/01/19 09:18 gastritis sulfamethoxazole Allergy Mild RASH Verified 11/01/19 09:18 bacitracin Allergy slow Verified 11/01/19 09:18 [From Neosporin Plus] healing lidocaine Allergy slow Verified 11/01/19 09:18 [From Neosporin Plus] healing neomycin Allergy slow Verified 11/01/19 09:18 [From Neosporin Plus] healing polymyxin B Allergy slow Verified 11/01/19 09:18 [From Neosporin Plus] healing pramoxine Allergy slow Verified 11/01/19 09:18 [From Neosporin Plus] healing trimethoprim [From Septra] AdvReac rash Verified 11/01/19 09:18 Review of Systems Review of Systems ROS Unobtainable: All systems reviewed & are unremarkable except as noted in HPI and below Constitutional Constitutional: Reports anorexia, Denies chills, Denies fever(s), Denies lethargy, Reports poor appetite and Denies weakness Eyes Eyes: Denies change in vision, Denies eye discharge, Denies irritation and Denies loss of vision ENT Ears, Nose, Mouth, and Throat: Denies change in voice, Denies neck pain and Denies sore throat Cardiovascular Cardiovascular: Reports as per HPI, Reports chest pain, Denies edema, Denies leg edema, Denies dyspnea and Reports dyspnea on exertion Respiratory Respiratory: Denies cough, Denies dyspnea, Reports dyspnea on exertion and Denies wheezing Gastrointestinal Gastrointestinal: Reports abdominal pain, Reports belching and Denies cramping Musculoskeletal Musculoskeletal: Reports as per HPI, Reports back pain and Denies neck pain Integumentary/Breasts Skin/Breast: Denies pruritus, Denies erythema, Denies rash and Denies wounds Neurologic Neurologic: Denies loss of vision and Denies weakness Allergic/Immunologic Allergic/Immunologic: Denies wheezing Patient History Medical History Acquired hypothyroidism (Chronic) Anxiety (Chronic 2012) Chicken pox (Resolved 1959) Colon polyps (Resolved 09/2016) Degenerative joint disease (DJD) of lumbar spine (Chronic) Diverticular disease (Chronic 2008) Diverticulitis (Inactive) Essential hypertension (Chronic) Fibromyalgia (Chronic 1985) GERD (gastroesophageal reflux disease) (Chronic 2008) Hematuria (Chronic 1985) Hemorrhoids (Chronic 2016) Hyperlipidemia (Chronic) IBS (irritable bowel syndrome) (Chronic 2016) Interstitial cystitis (Chronic 1985) Interstitial cystitis (chronic) without hematuria (Chronic) Measles (Resolved) Mumps (Resolved) Mural thickening of sigmoid colon (Chronic) Obesity (Acute) Osteoarthritis (Chronic 1995) Osteoarthritis of knees, bilateral (Acute) Osteopenia (Chronic 2009) Osteoporosis (Chronic) Reflux esophagitis (Chronic) Rheumatoid arthritis (Chronic 1998) Rheumatoid arthritis (Acute) Thyroid nodule (Chronic 2013) Tinnitus (Chronic 2014) Uterine cancer (Resolved 04/2016) Surgical History Anesthesia complication (Resolved) S/P partial colectomy (Resolved) Status post colonoscopy (Resolved 02/2009) Status post colonoscopy (Resolved 04/30/16) Status post endoscopy (Resolved 02/2009) Status post endoscopy (Resolved 04/30/16) Status post hysterectomy (Resolved 04/2016) Status post knee surgery (Resolved 04/2015) Status post tubal ligation (Resolved 1986) Family History Brother Age: 62 Multiple sclerosis Brother Age: 46 IBS (irritable bowel syndrome) Father Age: 86 Alzheimer's disease Mother Age: 86 Breast cancer Heart disease Hypertension High cholesterol Sister Age: 60 Sjogren's syndrome Grandfather No problems noted. Grandmother No problems noted. Grandfather No problems noted. Grandmother No problems noted. Social History marital status: household members: spouse pets and animals: Yes education level: college richard/christian: Quaker other: walking,hiking,singing,painting,drawing,knitting seatbelt use: always helmet use: Yes water heater temp set < 120 deg: Yes working smoke detector in home: Yes fire extinguisher in home: Yes carbon monox detector in home: Yes firearms in home: No Smoking Status: Never smoker alcohol intake: never substance use type: does not use during the past year weight has: decreased > 10 lbs well-balanced diet: daily or most days daily servings fruits/ve-1 caffeine: Yes eating out: rarely or never Smoking Status: Never smoker alcohol intake frequency: 0-2 drinks per day Substance Use Type: does not use Exam Initial Vital Signs Initial Vital Signs: Vital Signs Temperature 100 F H 11/01/19 09:05 Pulse Rate 78 11/01/19 09:05 Respiratory Rate 18 11/01/19 09:05 Blood Pressure 180/85 H 11/01/19 09:05 Pulse Oximetry 99 11/01/19 09:05 GENERAL: Well-appearing, well-nourished and in no acute distress. HEENT: Head atraumatic,EOMI, pupils reactive, face symmetric CARDIOVASCULAR: Regular rate and rhythm without murmurs, rubs or gallops. RESPIRATORY: Breath sounds equal bilaterally, no wheezes rales or rhonchi. ABDOMEN: Soft, minimal right upper quadrant pain negative Chanel sign mild epigastric pain no lower abdominal pain. Normoactive bowel sounds all 4 quadrants. No guarding or rebound. BACK: Mild thoracic in no vertebral tenderness no step-off she actually has some swelling in the upper Thoracics but is nontender EXTREMITIES: Normal range of motion, no clubbing or edema. Neurovascularly intact NEUROLOGICAL: Alert and oriented x4.Normal gait and speech. SKIN: Warm, dry, no laceration, no petechiae, no rashes or lesions. Scores HEART Score Heart Score history: Slightly Suspicious Heart Score EKG: Normal Heart Score Age: 45-64 years old Heart Score risk factors: No known risk factors Heart Score troponin: < or = to normal limit Heart Score Total: 1 Course Orders Ordered: ED Orders 11/01/19 08:57 XR chest 1V Stat EKG-12 Lead Stat 11/01/19 09:31 XR thoracic spine 3V Stat 11/01/19 10:17 Complete Blood Count AUTO DIFF Stat Comprehensive Metabolic Panel Stat Lipase Stat Partial Thromboplastin Time Stat Prothrombin Time INR Stat Troponin & CK Cardiac Panel Stat 07/17/20 11:05 US abdomen limited Stat Discontinued Medications Al Hydrox/Mg Hydrox/Simethicone 20 ml/ Lidocaine HCl 15 ml 0 ml PO NOW ONE Stop: 11/01/19 10:07 Last Admin: 11/01/19 10:17 Dose: 45 ml Documented by: RIGOBERTO Pantoprazole Sodium (Protonix) 40 mg IV NOW ONE Stop: 11/01/19 09:32 Last Admin: 11/01/19 10:19 Dose: Not Given Documented by: RIGOBERTO Vital Signs Vital signs: Vital Signs - 8 hr 11/01/19 09:05 11/01/19 09:30 11/01/19 09:31 Temperature 100 F H Pulse Rate 76 74 77 Respiratory Rate 22 14 18 Blood Pressure 180/85 H 159/74 H Pulse Oximetry 99 98 98 11/01/19 10:09 11/01/19 10:23 11/01/19 10:30 Temperature Pulse Rate 69 70 70 Respiratory Rate 20 Blood Pressure 169/80 H Pulse Oximetry 97 98 97 11/01/19 11:00 11/01/19 11:30 11/01/19 11:33 Temperature Pulse Rate 71 68 68 Respiratory Rate Blood Pressure 159/75 H Pulse Oximetry 97 98 97 MDM - Chest Pain Lab Data Attestation: I reviewed the patient's lab results. Result diagrams: 11/01/19 10:17 11/01/19 10:17 Labs: Lab Results 11/01/19 11/01/19 11/01/19 Range/Units 10:17 10:17 10:17 WBC 6.1 (4.5-11.0) X10^3/uL RBC 4.69 (4.0-5.2) X10^6/uL Hgb 14.3 (12.0-16.0) g/dL Hct 42.8 (36-46) % MCV 91.3 (80-100) fL MCH 30.4 (26-34) PG MCHC 33.3 (30-36) % RDW 14.4 (11.6-14.8) % Plt Count 163 (150-400) X10^3/uL Neut % (Auto) 53.0 (50-75) % Lymph % (Auto) 35.4 (25-40) % [place] % (Auto) 7.4 (3-14) % Eos % (Auto) 3.1 (2-4) % Baso % (Auto) 1.1 (0-2) % Neut # (Auto) 3200 (0745-1172) /uL Lymph # (Auto) 2200 (7688-6167) /uL [place] # (Auto) 500 (0-900) /uL Eos # (Auto) 200 (0-450) /uL Baso # (Auto) 100 (0-100) /uL PT 11.5 (10.1-12.7) SECONDS INR 1.0 (0.9-1.3) APTT 30 D (26.4-36.2) SECONDS Sodium 138 (137-145) mmol/L Potassium 3.9 (3.4-5.1) mmol/L Chloride 105 (98-107) mmol/L Carbon Dioxide 25 (22-32) mmol/L BUN 18 H (7-17) mg/dL Creatinine 0.82 (0.52-1.04) mg/dL Estimated GFR > 60.0 (>60) mL/min BUN/Creatinine Ratio 22.0 (6-22) Glucose 93 (80-110) mg/dL Calcium 9.6 (8.4-10.2) mg/dL Total Bilirubin 0.8 (0.2-1.3) mg/dL AST 36 (14-36) IU/L ALT 30 (<35) IU/L Alkaline Phosphatase 108 (38-126) U/L Total Creatine Kinase 161 H (30-135) U/L CK-MB (CK-2) 1.92 (<2.37) ng/mL CK-MB (CK-2) Rel Index 1.2 L (1.5-5.0) % Troponin I < 0.012 (0.01-0.034) ng/mL Total Protein 7.9 (6.3-8.2) g/dL Albumin 4.6 (3.5-5.0) g/dL Globulin 3.3 (1.7-4.1) g/dL Albumin/Globulin Ratio 1.4 (1.0-2.8) Lipase 72 (23-300) U/L Imaging Data Chest x-ray: Radiologist's Impression: PROCEDURE: XR CHEST 1V INDICATIONS: chest pain TECHNIQUE: One view of the chest was acquired. COMPARISON: [facility], CR, XR CHEST 1V, 03/20/2018, 12:40. FINDINGS: Surgical changes and devices: None. Lungs and pleura: Lungs are clear. No pleural effusions or pneumothorax. Mediastinum: Mediastinal contours appear normal. Heart size is normal. Bones and chest wall: No suspicious bony lesions. Overlying soft tissues appear unremarkable. IMPRESSION: No acute cardiopulmonary process is evident. Dictated by: Ruy Galindo M.D. on 11/01/2019 at 8:52 thoracic XR: Radiologist's Impression: PROCEDURE: XR THORACIC SPINE 3V INDICATIONS: Pain history of psoriatic arthritis, rheumatoid TECHNIQUE: 3 views of the thoracic spine were acquired. COMPARISON: None. FINDINGS: Bones: No fractures or dislocations. No suspicious bony lesions. Mild degenerative disc disease throughout mid to lower thoracic spine is seen. 12 pairs of ribs are noted, and appear intact where visualized. Soft tissues: No paravertebral stripe thickening. IMPRESSION: No gross acute thoracic spine fracture or dislocation. Mild degenerative disc disease in mid to lower thoracic spine. Dictated by: Charly Mejia M.D. on 11/01/2019 at 10:07 Approved by: Charly Mejia M.D. on 11/01/2019 at 10:07 US - abdomen: Radiologist's Impression: PROCEDURE: US ABDOMEN LIMITED INDICATIONS: RUQ PAIN TECHNIQUE: Real-time scanning was performed of the abdominal and retroperitoneal organs, with image documentation. COMPARISON: None. FINDINGS: Liver: Liver is normal in size. Increased liver parenchymal echotexture is seen suggestive of hepatic steatosis. No discrete hepatic lesion is noted. Gallbladder: There is no gallstone. No gallbladder wall thickening or pericholecystic fluid. No sonographic Chanel sign. Biliary ducts: Intrahepatic bile ducts are non-dilated. Extrahepatic bile duct caliber measures 4.3 mm. Normal is 6-7 mm or less in diameter, or 10 mm or less post-cholecystectomy. Pancreas: Visualized portions of the pancreas are sonographically normal. IMPRESSION: 1. No gallstone. No sonographic evidence of acute cholecystitis. No biliary ductal dilatation. 2. Hepatic steatosis. No discrete hepatic lesion. Dictated by: Charly Mejia M.D. on 11/01/2019 at 11:56 ECG Data Attestation: I personally reviewed and interpreted this ECG as follows: Prior ECG tracings: available for review Interpretation: Normal sinus rhythm rate 74 p.r. interval 170 QRS [address] elevation depression or T-wave inversion MDM Narrative Medical decision making narrative: I suspect patient has mild ulcer or gastritis from not eating enough. She has no real chest pain she has belching a lot she has some mild epigastric pain and minimal right upper quadrant pain although she points to her left upper quadrant as well ultrasound is negative blood work is overall reassuring. She has some unexplained back pain but has a history of back pain and multiple arthritis is which could be causing this. X-ray of her thoracic spine is negative. I recommend that she take an antacid she is unable to take any PPI because they give her headache however she does have Pepcid at home. At this time I recommend outpatient follow-up. Discharge Plan Departure Patient Disposition: Home Clinical Impression: Gastritis Qualifiers: Gastritis type: unspecified gastritis Chronicity: acute Gastritis bleeding: without bleeding Qualified Code(s): K29.00 - Acute gastritis without bleeding Discharge Date/Time: 11/01/19 12:24 Instructions: DI for Gastritis Activity Restrictions/Additional Instructions: *You have been diagnosed with gastritis *What to do: At this time heart gallbladder and pancreas are all reassuring blood work EKG and x-rays do not show any significant abnormality. I think that your symptoms may be related to gastritis due to decreased food. *Continue to take medications as directed Antacid of your choice take as directed *Follow up with your primary care provider in 2-3 days *Return to ER if you should have increasing pain shortness of breath, nausea vomiting body aches or any new, worsening or concerning symptoms Prescriptions: No Action amitriptyline 10 mg tablet 5 mg PO BEDTIME Qty: 45 RF: 1 pravastatin [Pravachol] 20 mg tablet 20 mg PO BEDTIME Qty: 90 RF: 3 Tirosint 50 mcg capsule 50 mcg PO DAILY Qty: 90 RF: 3 Hyalo reverberatory skimmer topical RF: 0 Simponi 100 mg/mL pen injector 200 mg SUBCUT ONCE RF: 0 Estriol Vaginal Cream 0.1% 1 gram vaginal .COMPLEX Qty: 30 RF: 2 Estradiol 0.05mg Vaginal Suppository in [place] Oil Base 1 each vaginal .COMPLEX Qty: 30 RF: 3 omega-3 fatty acids 1,000 mg capsule 1,000 mg PO DAILY RF: 0 cyclobenzaprine 5 mg tablet 5 mg PO BEDTIME PRN (Reason: muscle spasm) Qty: 30 RF: 1 acetaminophen [Tylenol Extra Strength] 500 mg tablet 500 mg PO Q4H PRNRF: 0 methotrexate sodium (PF) 25 mg/mL solution 0.4 ml subcut QWEEK RF: 0 diclofenac sodium 1 % gel 1 applic Topical DIRECTED RF: 0 cholecalciferol (vitamin D3) [Vitamin D3] 5,000 unit Tablet 5,000 unit PO DAILY RF: 0 Referrals: Damari Vargas DO [Primary Care Provider] -
--- NOTE | 2019-11-01 09:31 | DI.RAD.S_ITS ---
PROCEDURE: XR THORACIC SPINE 3V INDICATIONS: Pain history of psoriatic arthritis, rheumatoid TECHNIQUE: 3 views of the thoracic spine were acquired. COMPARISON: None. FINDINGS: Bones: No fractures or dislocations. No suspicious bony lesions. Mild degenerative disc disease throughout mid to lower thoracic spine is seen. 12 pairs of ribs are noted, and appear intact where visualized. Soft tissues: No paravertebral stripe thickening. IMPRESSION: No gross acute thoracic spine fracture or dislocation. Mild degenerative disc disease in mid to lower thoracic spine. Dictated by: Charly Mejia M.D. on 11/01/2019 at 10:07 Approved by: Charly Mejia M.D. on 11/01/2019 at 10:07
--- NOTE | 2019-11-01 10:11 | PC.NURSE ---
Another RN unable to get IV access after four attempts. Informed . Lab contacted.
[2019-11-01] MEDS: MAG HYDROX/ALUMINUM/SIMETH SUS 20 ML, LIDOCAINE VISCOUS 2% 15 ML PO (10:17)
[2019-11-01 10:26] LABS: Add Manual Diff / Slide Review NO; Basophils Absolute Auto 100 /uL (0-100); Basophils Percent Auto 1.1 % (0-2); Eosinophils Absolute Auto 200 /uL (0-450); Eosinophils Percent Auto 3.1 % (2-4); Hematocrit 42.8 % (36-46); Hemoglobin 14.3 g/dL (12.0-16.0); Lymphocytes Absolute Auto 2200 /uL (1100-4500); Lymphocytes Percent Auto 35.4 % (25-40); Mean Corpuscular HGB Conc 33.3 % (30-36); Mean Corpuscular Hemoglobin 30.4 PG (26-34); Mean Corpuscular Volume 91.3 fL (80-100); Monocytes Absolute Auto 500 /uL (0-900); Monocytes Percent Auto 7.4 % (3-14); Neutrophils Absolute Auto 3200 /uL (1500-7000); Platelet Count 163 X10^3/uL (150-400); Red Blood Cell Count 4.69 X10^6/uL (4.0-5.2); Red Cell Distribution Width 14.4 % (11.6-14.8); White Blood Cell Count 6.1 X10^3/uL (4.5-11.0)
[2019-11-01 10:32] LABS: Prothrombin Time 11.5 SECONDS (10.1-12.7)
[2019-11-01 10:34] LABS: PTT Partial Thromboplastin Tim 30 SECONDS (26.4-36.2)
[2019-11-01 10:37] LABS: Alanine Aminotransferase 30 IU/L (<35); Albumin 4.6 g/dL (3.5-5.0); Albumin Globulin Ratio 1.4 (1.0-2.8); Alkaline Phosphatase 108 U/L (38-126); Aspartate Aminotransferase 36 IU/L (14-36); Bilirubin Total 0.8 mg/dL (0.2-1.3); Blood Urea Nitrogen 18 mg/dL (7-17); Calcium 9.6 mg/dL (8.4-10.2); Carbon Dioxide 25 mmol/L (22-32); Chloride 105 mmol/L (98-107); Creatine Kinase 161 U/L (30-135); Estimated Glomerular Filt Rate > 60.0 mL/min (>60); Globulin 3.3 g/dL (1.7-4.1); Glucose 93 mg/dL (80-110); HEMOLYSIS < 15 (0-50); Lipase 72 U/L (23-300); Potassium 3.9 mmol/L (3.4-5.1); Sodium 138 mmol/L (137-145); Total Protein 7.9 g/dL (6.3-8.2)
[2019-11-01 10:48] LABS: Troponin I < 0.012 ng/mL (0.01-0.034)
[2019-11-01 10:52] LABS: CKMB % Relative Index 1.2 % (1.5-5.0); Creatine Kinase MB 1.92 ng/mL (<2.37)
--- NOTE | 2019-11-01 11:05 | DI.US.S_ITS ---
PROCEDURE: US ABDOMEN LIMITED INDICATIONS: RUQ PAIN TECHNIQUE: Real-time scanning was performed of the abdominal and retroperitoneal organs, with image documentation. COMPARISON: None. FINDINGS: Liver: Liver is normal in size. Increased liver parenchymal echotexture is seen suggestive of hepatic steatosis. No discrete hepatic lesion is noted. Gallbladder: There is no gallstone. No gallbladder wall thickening or pericholecystic fluid. No sonographic Chanel sign. Biliary ducts: Intrahepatic bile ducts are non-dilated. Extrahepatic bile duct caliber measures 4.3 mm. Normal is 6-7 mm or less in diameter, or 10 mm or less post-cholecystectomy. Pancreas: Visualized portions of the pancreas are sonographically normal. IMPRESSION: 1. No gallstone. No sonographic evidence of acute cholecystitis. No biliary ductal dilatation. 2. Hepatic steatosis. No discrete hepatic lesion. Dictated by: Charly Mejia M.D. on 11/01/2019 at 11:56 Approved by: Charly Mejia M.D. on 11/01/2019 at 11:57
== END 2019-11-01 12:24 | disposition home or self-care (01) ==
PROVIDERS: Emergency Provider Emergency Medicine; PCP Family Medicine
DX: K29.00 Acute gastritis without bleeding (principal); R51 Headache; R10.9 Unspecified abdominal pain; R10.11 Right upper quadrant pain; R07.9 Chest pain, unspecified
CPT/HCPCS: 71045; 72072; 76705; 80053; 82550; 82553; 83690; 84484; 85025; 85610; 85730; 93005; 93010; 99284

== ENCOUNTER → 2020-01-16 09:46 | Outpatient (CLI) | payer OTHER, SELFPAY | PROVIDERS: PCP Family Medicine; Referring Provider Family Medicine; Visit Provider Family Medicine | DX: M85.851 Other specified disorders of bone density and structure, right thigh (principal); Z78.0 Asymptomatic menopausal state; E07.9 Disorder of thyroid, unspecified; Z82.62 Family history of osteoporosis; Z85.42 Personal history of malignant neoplasm of other parts of uterus | CPT/HCPCS: 77080 ==

== ENCOUNTER → 2020-04-28 12:17 | Outpatient (CLI) | payer OTHER, SELFPAY ==
--- NOTE | 2020-04-28 | DI.MG.S_ITS ---
BILATERAL DIGITAL SCREENING MAMMOGRAM 3D/2D WITH CAD: 04/28/2020 CLINICAL: Routine screening. Family history of breast cancer. Comparison is made to exams dated: 03/18/2019 mammogram, 03/01/2018 mammogram - , and 08/15/2016 mammogram - [facility]. There are scattered fibroglandular elements in both breasts. Current study was also evaluated with a Computer Aided Detection (CAD) system. No significant masses, calcifications, or other findings are seen in either breast. There has been no significant interval change. IMPRESSION: NEGATIVE There is no mammographic evidence of malignancy. A 1 year screening mammogram is recommended. This exam was interpreted at Station ID: [id number]. NOTE: For mammograms, a report in lay terms will be sent to the patient. Approximately 15% of breast malignancies will not be visualized mammographically. In the management of a palpable breast mass, a negative mammogram must not discourage biopsy of a clinically suspicious lesion. Electronically Signed By: Kalin cardenas/brian:04/28/2020 14:21:05 copy to: [facility] letter sent: Normal Exam ACR BI-RADS Category 1: Negative [id number]
== END ==
PROVIDERS: PCP Family Medicine; Referring Provider Registered Nurse; Visit Provider Registered Nurse
DX: Z12.31 Encounter for screening mammogram for malignant neoplasm of breast (principal); Z80.3 Family history of malignant neoplasm of breast
CPT/HCPCS: 77063; 77067

== ENCOUNTER → 2020-10-03 10:54 | Outpatient (CLI) | payer OTHER, SELFPAY ==
[2020-10-03 11:36] LABS: Add Manual Diff / Slide Review NO; Basophils Absolute Auto 100 /uL (0-100); Basophils Percent Auto 1.2 % (0-2); Eosinophils Absolute Auto 200 /uL (0-450); Eosinophils Percent Auto 3.2 % (2-4); Hematocrit 43.2 % (36-46); Hemoglobin 13.9 g/dL (12.0-16.0); Lymphocytes Absolute Auto 3300 /uL (1100-4500); Lymphocytes Percent Auto 43.8 % (25-40); Mean Corpuscular HGB Conc 32.3 % (30-36); Mean Corpuscular Hemoglobin 29.5 PG (26-34); Mean Corpuscular Volume 91.4 fL (80-100); Monocytes Absolute Auto 600 /uL (0-900); Monocytes Percent Auto 8.1 % (3-14); Neutrophils Absolute Auto 3300 /uL (1500-7000); Neutrophils Percent Auto 43.7 % (50-75); Platelet Count 214 X10^3/uL (150-400); Red Blood Cell Count 4.72 X10^6/uL (4.0-5.2); Red Cell Distribution Width 14.1 % (11.6-14.8); White Blood Cell Count 7.5 X10^3/uL (4.5-11.0)
[2020-10-03 12:04] LABS: Alanine Aminotransferase 20 IU/L (<35); Albumin 4.2 g/dL (3.5-5.0); Albumin Globulin Ratio 1.3 (1.0-2.8); Alkaline Phosphatase 93 U/L (38-126); Aspartate Aminotransferase 28 IU/L (14-36); BUN Creatinine Ratio 21.5 (6-22); Bilirubin Total 0.7 mg/dL (0.2-1.3); Blood Urea Nitrogen 17 mg/dL (7-17); Calcium 9.8 mg/dL (8.4-10.2); Carbon Dioxide 27 mmol/L (22-32); Chloride 106 mmol/L (98-107); Cholesterol 209 mg/dL (140-199); Estimated Glomerular Filt Rate > 60.0 mL/min (>60); Globulin 3.3 g/dL (1.7-4.1); Glucose 93 mg/dL (80-110); HDL Cholesterol 53 mg/dL (40-60); HEMOLYSIS < 15 (0-50); LDL Cholesterol Calculated 115 mg/dL (<100); Potassium 4.2 mmol/L (3.4-5.1); Sodium 140 mmol/L (137-145); Total Protein 7.5 g/dL (6.3-8.2); Triglycerides 207 mg/dL (35-150)
[2020-10-03 12:34] LABS: TSH w/ Reflex to FT4 0.95 uIU/mL (0.47-4.68)
[2020-10-04 17:48] LABS: Insulin Level Total 16.7 uIU/mL (2.6-24.9)
== END ==
PROVIDERS: PCP Family Medicine; Referring Provider Family Medicine; Visit Provider Family Medicine
DX: M05.9 Rheumatoid arthritis with rheumatoid factor, unspecified (principal); E66.3 Overweight; E78.5 Hyperlipidemia, unspecified; E88.81 Metabolic syndrome and other insulin resistance; I10 Essential (primary) hypertension; R74.8 Abnormal levels of other serum enzymes; Z83.3 Family history of diabetes mellitus; E03.9 Hypothyroidism, unspecified
CPT/HCPCS: 36415; 80053; 80061; 83525; 84443; 85025

== ENCOUNTER 2020-11-08 19:00 | Emergency (ER) | payer OTHER, SELFPAY ==
[2020-11-08] VITALS (10 sets, daily range): BP systolic 171–213; BP diastolic 80–93; PULSE 64–76; RESP 13–22; TEMP 36.7; O2SAT 97–100
[2020-11-08 20:07] LABS: Add Manual Diff / Slide Review NO; Basophils Absolute Auto 100 /uL (0-100); Basophils Percent Auto 0.9 % (0-2); Eosinophils Absolute Auto 300 /uL (0-450); Eosinophils Percent Auto 2.6 % (2-4); Hematocrit 41.4 % (36-46); Hemoglobin 13.7 g/dL (12.0-16.0); Lymphocytes Absolute Auto 5000 /uL (1100-4500); Lymphocytes Percent Auto 46.1 % (25-40); Mean Corpuscular HGB Conc 33.1 % (30-36); Mean Corpuscular Hemoglobin 30.4 PG (26-34); Mean Corpuscular Volume 91.8 fL (80-100); Monocytes Absolute Auto 900 /uL (0-900); Monocytes Percent Auto 8.1 % (3-14); Neutrophils Absolute Auto 4500 /uL (1500-7000); Neutrophils Percent Auto 42.3 % (50-75); Platelet Count 203 X10^3/uL (150-400); Red Blood Cell Count 4.51 X10^6/uL (4.0-5.2); Red Cell Distribution Width 14.3 % (11.6-14.8); White Blood Cell Count 10.7 X10^3/uL (4.5-11.0)
[2020-11-08 20:16] LABS: Alanine Aminotransferase 21 IU/L (<35); Albumin 4.4 g/dL (3.5-5.0); Albumin Globulin Ratio 1.3 (1.0-2.8); Alkaline Phosphatase 87 U/L (38-126); Aspartate Aminotransferase 27 IU/L (14-36); BUN Creatinine Ratio 18.4 (6-22); Bilirubin Total 0.5 mg/dL (0.2-1.3); Blood Urea Nitrogen 14 mg/dL (7-17); Calcium 9.6 mg/dL (8.4-10.2); Carbon Dioxide 29 mmol/L (22-32); Chloride 105 mmol/L (98-107); Estimated Glomerular Filt Rate > 60.0 mL/min (>60); Globulin 3.3 g/dL (1.7-4.1); Glucose 96 mg/dL (80-110); HEMOLYSIS < 15 (0-50); Potassium 3.5 mmol/L (3.4-5.1); Sodium 140 mmol/L (137-145); Total Protein 7.7 g/dL (6.3-8.2)
[2020-11-08 20:51] LABS: Bacteria Urine None Seen; WBC Urine None Seen (0-5/HPF)
--- NOTE | 2020-11-08 20:54 | ED.GIBLEED ---
HPI - GI Bleed General Chief complaint: GI Bleed Stated complaint: BLOOD STOOLS STOMACH PAINS Time Seen by Provider: 11/08/20 20:01 Source: patient Mode of arrival: Ambulatory Limitations: no limitations History of Present Illness HPI Narrative: Patient is a 65-year-old female. Not on anticoagulation was here for couple days of blood in her stool. She states that it started a couple days ago when she did contact her primary doctor I informed her to come to the emergency department however she held off on doing that because she thought that maybe the red colored stools she was having and also what appeared to be blood on the toilet paper was from some candy that she has been eating. She does have a history of diverticulitis. She did have a bowel resection because of the several years ago. She is having slight abdominal discomfort. No fevers. No vomiting any blood. She did have a colonoscopy 3 years ago. Related Data Home Medications Medication Instructions Recorded Confirmed cholecalciferol (vitamin D3) 125 5,000 unit PO DAILY 03/20/18 07/06/20 mcg (5,000 unit) tablet (Vitamin D3) methotrexate sodium (PF) 25 mg/mL 0.4 ml SUBCUT QWEEK 03/20/18 07/06/20 injection solution golimumab 100 mg/mL subcutaneous 200 mg SUBCUT ONCE 09/13/18 07/06/20 pen injector (Simponi) omega-3 fatty acids 1,000 mg 1,000 mg PO DAILY 11/21/18 07/06/20 capsule acetaminophen 500 mg tablet 500 mg PO Q4H PRN 04/30/19 07/06/20 (Tylenol Extra Strength) Hyalo special effects technician TOPICAL 10/16/19 06/15/20 leucovorin calcium 5 mg tablet 10 mg PO .COMPLEX 06/15/20 07/06/20 alprazolam 0.25 mg tablet 0.125 mg PO .prn tab 10/09/20 10/09/20 estradiol 10 mcg vaginal tablet mcg VAGINAL 10/09/20 10/09/20 Previous Rx's Medication Instructions Recorded amitriptyline 10 mg tablet 5 mg PO BEDTIME #45 tab 11/26/18 Tirosint 50 mcg capsule 50 mcg PO DAILY #90 cap NS 10/16/19 (levothyroxine) cyclobenzaprine 5 mg tablet 5 mg PO BEDTIME PRN #30 tab 01/29/20 propranolol 10 mg tablet 5 mg PO Q8H PRN #10 tab 10/09/20 pravastatin 20 mg tablet See Rx Instructions .ROUTE 10/21/20 .COMPLEX #90 tab Allergies Allergy/AdvReac Type Severity Reaction Status Date / Time amoxicillin [From Augmentin] Allergy Intermediate Palpitation Verified 11/08/20 19:40 s clavulanic acid Allergy Intermediate Palpitation Verified 11/08/20 19:40 [From Augmentin] s cefuroxime [From CEFTIN] Allergy Mild swollen Verified 11/08/20 19:40 joints ciprofloxacin [CIPROFLOXACIN] Allergy Mild swollen Verified 11/08/20 19:40 tendons doxycycline [DOXYCYCLINE] Allergy Mild severe Verified 11/08/20 19:40 gastritis sulfamethoxazole Allergy Mild RASH Verified 11/08/20 19:40 bacitracin Allergy slow Verified 11/08/20 19:40 [From Neosporin Plus] healing lidocaine Allergy slow Verified 11/08/20 19:40 [From Neosporin Plus] healing neomycin Allergy slow Verified 11/08/20 19:40 [From Neosporin Plus] healing polymyxin B Allergy slow Verified 11/08/20 19:40 [From Neosporin Plus] healing pramoxine Allergy slow Verified 11/08/20 19:40 [From Neosporin Plus] healing trimethoprim [From Septra] AdvReac rash Verified 11/08/20 19:40 Review of Systems Constitutional Constitutional: Reports system reviewed and no additional complaints, except as documented Cardiovascular Cardiovascular: Reports system reviewed and no additional complaints, except as documented Respiratory Respiratory: Reports system reviewed and no additional complaints, except as documented Gastrointestinal Gastrointestinal: Reports as per HPI Genitourinary Genitourinary: Reports system reviewed and no additional complaints, except as documented Musculoskeletal Musculoskeletal: Reports system reviewed and no additional complaints, except as documented Integumentary/Breasts Skin/Breast: Reports system reviewed and no additional complaints, except as documented Neurologic Neurologic: Reports system reviewed and no additional complaints, except as documented Hematologic/Lymphatic On Anticoagulants: No Patient History Medical History Acquired hypothyroidism Anxiety (2012) Chicken pox (1959) Colon polyps (09/2016) 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 Diverticular disease (2008) Diverticulitis Essential hypertension Fibromyalgia (1985) GERD (gastroesophageal reflux disease) (2008) Hematuria (1985) Hemorrhoids (2016) Hyperlipidemia IBS (irritable bowel syndrome) (2016) Interstitial cystitis (chronic) without hematuria (~1985) Measles Mumps Mural thickening of sigmoid colon Obesity Osteoarthritis (1995) Osteoarthritis of knees, bilateral Osteopenia (2009) Osteoporosis Reflux esophagitis Rheumatoid arthritis (~1998) Thyroid nodule (2013) Tinnitus (2014) Uterine cancer (04/2016) Surgical History Anesthesia complication S/P partial colectomy Status post colonoscopy (04/2016) Status post endoscopy (04/2016) Status post hysterectomy (04/2016) Status post knee surgery (04/2015) Status post tubal ligation (1986) Family History Brother Age: 62 Multiple sclerosis Brother Age: 46 IBS (irritable bowel syndrome) Father Age: 86 Alzheimer's disease Mother Age: 86 Breast cancer Heart disease Hypertension High cholesterol Dementia Congestive heart failure Sister Age: 60 Sjogren's syndrome Grandfather No problems noted. Grandmother No problems noted. Grandfather No problems noted. Grandmother No problems noted. Social History marital status: household members: spouse pets and animals: Yes education level: college richard/christian: [employer]al other: walking,hiking,singing,painting,drawing,knitting seatbelt use: always helmet use: Yes water heater temp set < 120 deg: Yes working smoke detector in home: Yes fire extinguisher in home: Yes carbon monox detector in home: Yes firearms in home: No Smoking Status: Never smoker alcohol intake: never substance use type: does not use during the past year weight has: decreased > 10 lbs well-balanced diet: daily or most days daily servings fruits/ve-1 caffeine: Yes eating out: rarely or never Smoking Status: Never smoker alcohol intake frequency: 0-2 drinks per day Substance Use Type: does not use Exam Initial Vital Signs Initial Vital Signs: Vital Signs Temperature 98.1 F 11/08/20 19:31 Pulse Rate 64 11/08/20 19:31 Respiratory Rate 16 11/08/20 19:31 Blood Pressure 204/93 H 11/08/20 19:31 Pulse Oximetry 99 11/08/20 19:31 Const General: cooperative, healthy appearing, comfortable and well developed [facility] Head: normal to inspection and normocephalic Eyes General: appearance normal, both eyes and all related structures Resp Effort & Inspection: normal respiratory effort Auscultation: clear to auscultation bilaterally Cardio Rate: regular rate Rhythm: regular rhythm GI Inspection: normal to inspection Palpation: soft and tender Skin General: no rashes or lesions noted Neuro General: patient alert, patient awake, patient oriented x3 and moves all extremities Extrem General: normal to inspection and capillary refill normal Psych Appearance: grossly normal and well kempt Course Orders Ordered: ED Orders 11/08/20 19:53 Complete Blood Count AUTO DIFF Stat Comprehensive Metabolic Panel Stat 11/08/20 20:49 Urine Culture Stat Urine Microscopic Stat 11/08/20 20:54 CT abdomen pelvis w con Stat Vital Signs Vital signs: Vital Signs - 8 hr 11/08/20 20:56 11/08/20 21:00 11/08/20 21:01 Pulse Rate 69 67 76 Respiratory Rate 22 15 21 Blood Pressure 213/92 H Pulse Oximetry 99 99 100 11/08/20 21:30 11/08/20 21:36 11/08/20 22:00 Pulse Rate 66 72 70 Respiratory Rate 22 18 17 Blood Pressure 195/85 H Pulse Oximetry 99 98 97 11/08/20 22:01 11/08/20 22:30 Pulse Rate 74 71 Respiratory Rate 13 18 Blood Pressure 183/80 H Pulse Oximetry 99 MDM - GI Bleed Lab Data Attestation: I reviewed the patient's lab results. Result diagrams: 11/08/20 19:53 11/08/20 19:53 Labs: Lab Results 11/08/20 11/08/20 11/08/20 Range/Units 19:53 19:53 20:49 WBC 10.7 (4.5-11.0) X10^3/uL RBC 4.51 (4.0-5.2) X10^6/uL Hgb 13.7 (12.0-16.0) g/dL Hct 41.4 (36-46) % MCV 91.8 (80-100) fL MCH 30.4 (26-34) PG MCHC 33.1 (30-36) % RDW 14.3 (11.6-14.8) % Plt Count 203 (150-400) X10^3/uL Neut % (Auto) 42.3 L (50-75) % Lymph % (Auto) 46.1 H (25-40) % [place] % (Auto) 8.1 (3-14) % Eos % (Auto) 2.6 (2-4) % Baso % (Auto) 0.9 (0-2) % Neut # (Auto) 4500 (8409-5907) /uL Lymph # (Auto) 5000 H (1411-6162) /uL [place] # (Auto) 900 (0-900) /uL Eos # (Auto) 300 (0-450) /uL Baso # (Auto) 100 (0-100) /uL Sodium 140 (137-145) mmol/L Potassium 3.5 (3.4-5.1) mmol/L Chloride 105 (98-107) mmol/L Carbon Dioxide 29 (22-32) mmol/L BUN 14 (7-17) mg/dL Creatinine 0.76 (0.52-1.04) mg/dL Estimated GFR > 60.0 (>60) mL/min BUN/Creatinine Ratio 18.4 (6-22) Glucose 96 (80-110) mg/dL Calcium 9.6 (8.4-10.2) mg/dL Total Bilirubin 0.5 (0.2-1.3) mg/dL AST 27 (14-36) IU/L ALT 21 (<35) IU/L Alkaline Phosphatase 87 (38-126) U/L Total Protein 7.7 (6.3-8.2) g/dL Albumin 4.4 (3.5-5.0) g/dL Globulin 3.3 (1.7-4.1) g/dL Albumin/Globulin Ratio 1.3 (1.0-2.8) Urine RBC 0-1/hpf (0-5/HPF) Urine WBC None seen (0-5/HPF) Urine Bacteria None seen (None) Ur Culture Indicated? Culture not indicate Urine Dip Bedside Urine Glucose Negative Bedside Urine Bilirubin - Negative Bedside Urine Ketone - Negative Urine Specific Allyn 1.015 Bedside Urine Occult Blood +/- Bedside Urine pH 6.0 Bedside Urine Protein - Negative Bedside Urine Urobilinogen - Negative Bedside Urine Nitrite - Negative Bedside Urine Leukocytes - Negative Esterase Imaging Data CT scan - abdomen/pelvis: Radiologist's Impression: [facility] [place] [id number] Scan ReportSigned Patient: Palmira Bah DMR#: [id number]: 5Acct:[id number]/Sex: 65 / FDate of Service: 11/08/20Loc: EDAccession Number: [id number] Procedure: CT abdomen pelvis w con Ordering Provider: Rosalio Bliss D.O. PROCEDURE: CT ABDOMEN PELVIS W CON INDICATIONS: History of bowel resection now with rectal bleeding and pain TECHNIQUE: After the administration of intravenous contrast, axial sections acquired from the lung bases to the pubic symphysis. Coronal and sagittal reformats were performed. For radiation dose reduction, the following was used: automated exposure control, adjustment of mA and/or kV according to patient size. COMPARISON: [facility], CT, CT ABDOMEN PELVIS W CON, 11/22/2018, 12:52. [facility], CT, CT ABDOMEN PELVIS W CON, 03/20/2018, 13:18. FINDINGS: Image quality: Excellent. Lung bases: Unremarkable. Heart: No significant findings. ABDOMEN: Liver: Unremarkable. Gallbladder: Unremarkable. Biliary ducts: Unremarkable. Pancreas: Unremarkable. Spleen: Unremarkable. Adrenal Glands: Unremarkable. Kidneys and Ureters: Unremarkable. Stomach and Bowel: Stomach, small bowel loops, and colon are unremarkable. Peritoneum: No abnormal intraperitoneal fluid. No free air. Ventral Wall: No hernias. Abdominal Nodes: No retroperitoneal or mesenteric adenopathy by size criteria. Vessels: Aorta and inferior vena cava are normal in size. PELVIS: Pelvic Organs: Unremarkable. Bladder: Unremarkable. Pelvic Nodes: No enlarged lymph nodes. Miscellaneous: No hernias are seen. Anterior extent able line left lower quadrant. No evidence of mass lesion. Source of reported hematochezia is not found. Bones: Unremarkable. IMPRESSION: Posterior sigmoid colon enteric staple line, no mass lesion in this area is seen. A source of rectal bleeding and low pelvic pain is not identified. Dictated by: Charles Estrada M.D. on 11/08/2020 at 21:31 Approved by: Charles Estrada M.D. on 11/08/2020 at 21:33 ECG Data Attestation: I personally reviewed and interpreted this ECG as follows: Interpretation: Sinus rhythm Ventricular rate is 70 Normal axis Normal QRS Normal QTC No ST T wave changes MDM Narrative Medical decision making narrative: Vital signs are unremarkable, she is not anemic, has a benign abdominal exam of her given her history of diverticulitis been bowel resection the CT scan was ordered which did not show any acute pathology. Feel that we can hold on further workup for now. I suspect that the red that she is having on the toilet paper when she wipes his blood based on her description. Informed her she should contact her GI doctor for follow-up and to discuss the indications for a repeat colonoscopy. She was given strict return precautions. She expressed understanding and agreement. Discharge Plan Departure Patient Disposition: Home Clinical Impression: Rectal bleeding Instructions: DI for Rectal Bleeding Activity Restrictions/Additional Instructions: I recommend that tomorrow you contact your GI doctor for a follow-up. Return to the emergency department for any new or worsening symptoms Prescriptions: No Action amitriptyline 10 mg tablet 5 mg PO BEDTIME Qty: 45 RF: 1 Tirosint 50 mcg capsule 50 mcg PO DAILY Qty: 90 RF: 3 Hyalo special effects technician topical RF: 0 cyclobenzaprine 5 mg tablet 5 mg PO BEDTIME PRN (Reason: muscle spasm) Qty: 30 RF: 1 pravastatin 20 mg tablet See Rx Instructions .ROUTE .COMPLEX Qty: 90 RF: 3 Hold Instructions: has lost weight Simponi 100 mg/mL pen injector 200 mg SUBCUT ONCE RF: 0 leucovorin calcium 5 mg tablet 10 mg PO .COMPLEX RF: 0 propranolol 10 mg tablet 5 mg PO Q8H PRN (Reason: anxiety) Qty: 10 RF: 0 alprazolam 0.25 mg tablet 0.125 mg PO .prn RF: 0 estradiol 10 mcg tablet vaginal RF: 0 omega-3 fatty acids 1,000 mg capsule 1,000 mg PO DAILY RF: 0 acetaminophen [Tylenol Extra Strength] 500 mg tablet 500 mg PO Q4H PRNRF: 0 methotrexate sodium (PF) 25 mg/mL solution 0.4 ml subcut QWEEK RF: 0 cholecalciferol (vitamin D3) [Vitamin D3] 5,000 unit Tablet 5,000 unit PO DAILY RF: 0 Referrals: Damari Vargas DO [Primary Care Provider] -
[2020-11-08 21:20] LABS: RBC Urine 0-1/HPF (0-5/HPF)
== END 2020-11-08 22:38 | disposition home or self-care (01) ==
PROVIDERS: Emergency Provider Emergency Medicine; PCP Family Medicine
DX: K62.5 Hemorrhage of anus and rectum (principal); Z90.49 Acquired absence of other specified parts of digestive tract
CPT/HCPCS: 36415; 74177; 80053; 81003; 81015; 85025; 87086; 93005; 93010; 99283; 99284; Q9967

== ENCOUNTER 2020-11-23 12:58 | Emergency (ER) | payer OTHER, SELFPAY ==
[2020-11-23 13:39] VITALS: BP 181/81; RESP 18; O2SAT 97; BMI 29.7
[2020-11-23] MEDS: MAG HYDROX/ALUM/SIMETH 30 ML UDC PO (13:44)
[2020-11-23 13:48] LABS: Add Manual Diff / Slide Review NO; Basophils Absolute Auto 100 /uL (0-100); Basophils Percent Auto 1.1 % (0-2); Eosinophils Absolute Auto 300 /uL (0-450); Eosinophils Percent Auto 3.1 % (2-4); Hemoglobin 14.2 g/dL (12.0-16.0); Lymphocytes Absolute Auto 3300 /uL (1100-4500); Lymphocytes Percent Auto 41.1 % (25-40); Mean Corpuscular HGB Conc 33.1 % (30-36); Mean Corpuscular Hemoglobin 30.4 PG (26-34); Mean Corpuscular Volume 91.7 fL (80-100); Monocytes Absolute Auto 600 /uL (0-900); Neutrophils Absolute Auto 3800 /uL (1500-7000); Neutrophils Percent Auto 46.7 % (50-75); Platelet Count 207 X10^3/uL (150-400); Red Blood Cell Count 4.69 X10^6/uL (4.0-5.2); Red Cell Distribution Width 14.3 % (11.6-14.8); White Blood Cell Count 8.1 X10^3/uL (4.5-11.0)
[2020-11-23 13:59] LABS: Alanine Aminotransferase 25 IU/L (<35); Albumin 4.5 g/dL (3.5-5.0); Albumin Globulin Ratio 1.3 (1.0-2.8); Alkaline Phosphatase 103 U/L (38-126); Aspartate Aminotransferase 32 IU/L (14-36); BUN Creatinine Ratio 23.7 (6-22); Bilirubin Total 0.5 mg/dL (0.2-1.3); Blood Urea Nitrogen 18 mg/dL (7-17); Calcium 9.8 mg/dL (8.4-10.2); Carbon Dioxide 28 mmol/L (22-32); Chloride 102 mmol/L (98-107); Creatine Kinase 114 U/L (30-135); Estimated Glomerular Filt Rate > 60.0 mL/min (>60); Globulin 3.4 g/dL (1.7-4.1); Glucose 126 mg/dL (80-110); HEMOLYSIS < 15 (0-50); Lipase 134 U/L (23-300); Potassium 3.6 mmol/L (3.4-5.1); Sodium 138 mmol/L (137-145); Total Protein 7.9 g/dL (6.3-8.2)
--- NOTE | 2020-11-23 14:05 | ED_ITS ---
HPI - Chest Pain General Chief Complaint: Chest Pain Stated Complaint: chest pain, dizzy, numbness in hand Time Seen by Provider: 11/23/20 13:40 Source: patient Mode of arrival: Ambulatory Limitations: no limitations History of Present Illness HPI narrative: 65-year-old female who is here for evaluation of multiple symptoms to include some chest discomfort and dizziness and numbness in her hand. She states that she has been recently started on blood pressure medications by her primary doctor. She has been on these for 2 weeks now. She states that this morning was the 1st time that she took it with Macrobid. She has Macrobid at home because she frequently develops urinary tract infections after sexual activity and started to have urinary infection symptoms this morning. She also developed which she describes as severe reflux disease. She has been diagnosed with ulcers in the past. States she cannot take PPIs. Cannot take care feet because of her medications help with rheumatoid arthritis. Received a Maalox prior to my arrival which improved her symptoms tremendously. Related Data Home Medications Medication Instructions Recorded Confirmed cholecalciferol (vitamin D3) 125 5,000 unit PO DAILY 03/20/18 07/06/20 mcg (5,000 unit) tablet (Vitamin D3) methotrexate sodium (PF) 25 mg/mL 0.4 ml SUBCUT QWEEK 03/20/18 07/06/20 injection solution golimumab 100 mg/mL subcutaneous 200 mg SUBCUT ONCE 09/13/18 07/06/20 pen injector (Simponi) omega-3 fatty acids 1,000 mg 1,000 mg PO DAILY 11/21/18 07/06/20 capsule acetaminophen 500 mg tablet 500 mg PO Q4H PRN 04/30/19 07/06/20 (Tylenol Extra Strength) Hyalo physiotherapy practice manager TOPICAL 10/16/19 06/15/20 leucovorin calcium 5 mg tablet 10 mg PO .COMPLEX 06/15/20 07/06/20 alprazolam 0.25 mg tablet 0.125 mg PO .prn tab 10/09/20 10/09/20 estradiol 10 mcg vaginal tablet mcg VAGINAL 10/09/20 10/09/20 Previous Rx's Medication Instructions Recorded amitriptyline 10 mg tablet 5 mg PO BEDTIME #45 tab 11/26/18 Tirosint 50 mcg capsule 50 mcg PO DAILY #90 cap NS 10/16/19 (levothyroxine) cyclobenzaprine 5 mg tablet 5 mg PO BEDTIME PRN #30 tab 01/29/20 propranolol 10 mg tablet 5 mg PO Q8H PRN #10 tab 10/09/20 pravastatin 20 mg tablet See Rx Instructions .ROUTE 10/21/20 .COMPLEX #90 tab hydrochlorothiazide 12.5 mg tablet 12.5 mg PO DAILY #30 tab 11/09/20 Allergies Allergy/AdvReac Type Severity Reaction Status Date / Time amoxicillin [From Augmentin] Allergy Intermediate Palpitation Verified 11/08/20 19:40 s clavulanic acid Allergy Intermediate Palpitation Verified 11/08/20 19:40 [From Augmentin] s cefuroxime [From CEFTIN] Allergy Mild swollen Verified 11/08/20 19:40 joints ciprofloxacin [CIPROFLOXACIN] Allergy Mild swollen Verified 11/08/20 19:40 tendons doxycycline [DOXYCYCLINE] Allergy Mild severe Verified 11/08/20 19:40 gastritis sulfamethoxazole Allergy Mild RASH Verified 11/08/20 19:40 bacitracin Allergy slow Verified 11/08/20 19:40 [From Neosporin Plus] healing lidocaine Allergy slow Verified 11/08/20 19:40 [From Neosporin Plus] healing neomycin Allergy slow Verified 11/08/20 19:40 [From Neosporin Plus] healing polymyxin B Allergy slow Verified 11/08/20 19:40 [From Neosporin Plus] healing pramoxine Allergy slow Verified 11/08/20 19:40 [From Neosporin Plus] healing trimethoprim [From Septra] AdvReac rash Verified 11/08/20 19:40 Review of Systems Constitutional Constitutional: Reports as per HPI Cardiovascular Cardiovascular: Reports as per HPI Respiratory Respiratory: Reports system reviewed and no additional complaints, except as documented Gastrointestinal Gastrointestinal: Reports as per HPI Genitourinary Genitourinary: Reports as per HPI Musculoskeletal Musculoskeletal: Reports system reviewed and no additional complaints, except as documented Integumentary/Breasts Skin/Breast: Reports system reviewed and no additional complaints, except as documented Neurologic Neurologic: Reports as per HPI Psychiatric Psychiatric: Reports system reviewed and no additional complaints, except as documented Hematologic/Lymphatic On Anticoagulants: No Patient History Medical History Acquired hypothyroidism Anxiety (2012) Chicken pox (1959) Colon polyps (09/2016) 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 Diverticular disease (2008) Diverticulitis Essential hypertension Fibromyalgia (1985) GERD (gastroesophageal reflux disease) (2008) Hematuria (1985) Hemorrhoids (2016) Hyperlipidemia IBS (irritable bowel syndrome) (2016) Interstitial cystitis (chronic) without hematuria (~1985) Measles Mumps Mural thickening of sigmoid colon Obesity Osteoarthritis (1995) Osteoarthritis of knees, bilateral Osteopenia (2009) Osteoporosis Reflux esophagitis Rheumatoid arthritis (~1998) Thyroid nodule (2013) Tinnitus (2014) Uterine cancer (04/2016) Surgical History Anesthesia complication S/P partial colectomy Status post colonoscopy (04/2016) Status post endoscopy (04/2016) Status post hysterectomy (04/2016) Status post knee surgery (04/2015) Status post tubal ligation (1986) Family History Brother Age: 62 Multiple sclerosis Brother Age: 46 IBS (irritable bowel syndrome) Father Age: 86 Alzheimer's disease Mother Age: 86 Breast cancer Heart disease Hypertension High cholesterol Dementia Congestive heart failure Sister Age: 60 Sjogren's syndrome Grandfather No problems noted. Grandmother No problems noted. Grandfather No problems noted. Grandmother No problems noted. Social History marital status: household members: spouse pets and animals: Yes education level: college [employer]: Confucianism other: walking,hiking,singing,painting,drawing,knitting seatbelt use: always helmet use: Yes water heater temp set < 120 deg: Yes working smoke detector in home: Yes fire extinguisher in home: Yes carbon monox detector in home: Yes firearms in home: No Smoking Status: Never smoker alcohol intake: never substance use type: does not use during the past year weight has: decreased > 10 lbs well-balanced diet: daily or most days daily servings fruits/ve-1 caffeine: Yes eating out: rarely or never Smoking Status: Never smoker alcohol intake frequency: 0-2 drinks per day Substance Use Type: does not use Exam Initial Vital Signs Initial Vital Signs: Vital Signs Respiratory Rate 18 11/23/20 13:39 Blood Pressure 181/81 H 11/23/20 13:39 Pulse Oximetry 97 11/23/20 13:39 Const General: cooperative HENMT Head: normal to inspection and normocephalic Eyes General: appearance normal, both eyes and all related structures Resp Effort & Inspection: normal respiratory effort Cardio Rate: regular rate Rhythm: regular rhythm GI Palpation: soft Skin General: no rashes or lesions noted Neuro General: patient alert and patient awake Extrem General: capillary refill normal Psych Appearance: grossly normal and well kempt Course Orders Ordered: Discontinued Medications Al Hydrox/Mg Hydrox/Simethicone (Mag Hydrox/Alum/Simeth 30 Ml Udc) 30 ml PO NOW ONE Stop: 11/23/20 13:39 Last Admin: 11/23/20 13:44 Dose: 30 ml Documented by: LUZMA Vital Signs Vital signs: Vital Signs - 8 hr 11/23/20 13:39 Respiratory Rate 18 Blood Pressure 181/81 H Pulse Oximetry 97 MDM - Chest Pain Lab Data Attestation: I reviewed the patient's lab results. Result diagrams: 11/23/20 13:20 11/23/20 13:20 Labs: Lab Results 11/23/20 11/23/20 11/23/20 Range/Units 13:20 13:20 14:07 WBC 8.1 (4.5-11.0) X10^3/uL RBC 4.69 (4.0-5.2) X10^6/uL Hgb 14.2 (12.0-16.0) g/dL Hct 43.0 (36-46) % MCV 91.7 (80-100) fL MCH 30.4 (26-34) PG MCHC 33.1 (30-36) % RDW 14.3 (11.6-14.8) % Plt Count 207 (150-400) X10^3/uL Neut % (Auto) 46.7 L (50-75) % Lymph % (Auto) 41.1 H (25-40) % [place] % (Auto) 8.0 (3-14) % Eos % (Auto) 3.1 (2-4) % Baso % (Auto) 1.1 (0-2) % Neut # (Auto) 3800 (8847-1331) /uL Lymph # (Auto) 3300 (2051-3888) /uL [place] # (Auto) 600 (0-900) /uL Eos # (Auto) 300 (0-450) /uL Baso # (Auto) 100 (0-100) /uL Sodium 138 (137-145) mmol/L Potassium 3.6 (3.4-5.1) mmol/L Chloride 102 (98-107) mmol/L Carbon Dioxide 28 (22-32) mmol/L BUN 18 H (7-17) mg/dL Creatinine 0.76 (0.52-1.04) mg/dL Estimated GFR > 60.0 (>60) mL/min BUN/Creatinine Ratio 23.7 H (6-22) Glucose 126 H (80-110) mg/dL Calcium 9.8 (8.4-10.2) mg/dL Total Bilirubin 0.5 (0.2-1.3) mg/dL AST 32 (14-36) IU/L ALT 25 (<35) IU/L Alkaline Phosphatase 103 (38-126) U/L Total Creatine Kinase 114 (30-135) U/L CK-MB (CK-2) 1.27 (<2.37) ng/mL CK-MB (CK-2) Rel Index 1.1 L (1.5-5.0) % Troponin I < 0.012 (0.01-0.034) ng/mL Total Protein 7.9 (6.3-8.2) g/dL Albumin 4.5 (3.5-5.0) g/dL Globulin 3.4 (1.7-4.1) g/dL Albumin/Globulin Ratio 1.3 (1.0-2.8) Lipase 134 (23-300) U/L Urine RBC 1-5/hpf (0-5/HPF) Urine WBC None seen (0-5/HPF) Ur Squamous Epith Cells 1-5 /hpf (0-5/HPF) Urine Bacteria None seen (None) Ur Culture Indicated? Cult not indicated 11/23/20 Range/Units 15:18 WBC (4.5-11.0) X10^3/uL RBC (4.0-5.2) X10^6/uL Hgb (12.0-16.0) g/dL Hct (36-46) % MCV (80-100) fL MCH (26-34) PG MCHC (30-36) % RDW (11.6-14.8) % Plt Count (150-400) X10^3/uL Neut % (Auto) (50-75) % Lymph % (Auto) (25-40) % [place] % (Auto) (3-14) % Eos % (Auto) (2-4) % Baso % (Auto) (0-2) % Neut # (Auto) (5459-9516) /uL Lymph # (Auto) (5116-2398) /uL Custer # (Auto) (0-900) /uL Eos # (Auto) (0-450) /uL Baso # (Auto) (0-100) /uL Sodium (137-145) mmol/L Potassium (3.4-5.1) mmol/L Chloride (98-107) mmol/L Carbon Dioxide (22-32) mmol/L BUN (7-17) mg/dL Creatinine (0.52-1.04) mg/dL Estimated GFR (>60) mL/min BUN/Creatinine Ratio (6-22) Glucose (80-110) mg/dL Calcium (8.4-10.2) mg/dL Total Bilirubin (0.2-1.3) mg/dL AST (14-36) IU/L ALT (<35) IU/L Alkaline Phosphatase (38-126) U/L Total Creatine Kinase 102 (30-135) U/L CK-MB (CK-2) 1.31 (<2.37) ng/mL CK-MB (CK-2) Rel Index 1.3 L (1.5-5.0) % Troponin I < 0.012 (0.01-0.034) ng/mL Total Protein (6.3-8.2) g/dL Albumin (3.5-5.0) g/dL Globulin (1.7-4.1) g/dL Albumin/Globulin Ratio (1.0-2.8) Lipase (23-300) U/L Urine RBC (0-5/HPF) Urine WBC (0-5/HPF) Ur Squamous Epith Cells (0-5/HPF) Urine Bacteria (None) Ur Culture Indicated? Urine Dip Bedside Urine Glucose Negative Bedside Urine Bilirubin - Negative Bedside Urine Ketone - Negative Urine Specific [place] 1.020 Bedside Urine Occult Blood + Bedside Urine pH 6.0 Bedside Urine Protein - Negative Bedside Urine Urobilinogen - Negative Bedside Urine Nitrite - Negative Bedside Urine Leukocytes - Negative Esterase MDM Narrative Medical decision making narrative: Patient has had 2- troponins. Unremarkable EKG. Low suspicion for ACS. I do suspect that there is a GI component to her symptoms. Feel that we can hold on further workup for now here in the emergency department. She was given strict return precautions and follow-up instructions. She expressed understanding and agreement. Discharge Plan Departure Patient Disposition: Home Clinical Impression: Hypertension, Dizziness Instructions: DI for Dizziness-Nonvertigo Activity Restrictions/Additional Instructions: Recommend that you continue to take all of your medications as directed. There was a urine culture pending at the time ear discharge we will contact you if we need to start any antibiotics. Keep your appointment that you have with your primary doctor on Monday. Return to the emergency department for any new or worsening symptoms Prescriptions: No Action amitriptyline 10 mg tablet 5 mg PO BEDTIME Qty: 45 RF: 1 Tirosint 50 mcg capsule 50 mcg PO DAILY Qty: 90 RF: 3 Hyalo physiotherapy practice manager topical RF: 0 cyclobenzaprine 5 mg tablet 5 mg PO BEDTIME PRN (Reason: muscle spasm) Qty: 30 RF: 1 pravastatin 20 mg tablet See Rx Instructions .ROUTE .COMPLEX Qty: 90 RF: 3 Hold Instructions: has lost weight hydrochlorothiazide 12.5 mg tablet 12.5 mg PO DAILY Qty: 30 RF: 1 Simponi 100 mg/mL pen injector 200 mg SUBCUT ONCE RF: 0 leucovorin calcium 5 mg tablet 10 mg PO .COMPLEX RF: 0 propranolol 10 mg tablet 5 mg PO Q8H PRN (Reason: anxiety) Qty: 10 RF: 0 alprazolam 0.25 mg tablet 0.125 mg PO .prn RF: 0 estradiol 10 mcg tablet vaginal RF: 0 omega-3 fatty acids 1,000 mg capsule 1,000 mg PO DAILY RF: 0 acetaminophen [Tylenol Extra Strength] 500 mg tablet 500 mg PO Q4H PRNRF: 0 methotrexate sodium (PF) 25 mg/mL solution 0.4 ml subcut QWEEK RF: 0 cholecalciferol (vitamin D3) [Vitamin D3] 5,000 unit Tablet 5,000 unit PO DAILY RF: 0 Referrals: Damari Vargas DO [Primary Care Provider] -
[2020-11-23 14:09] LABS: Troponin I < 0.012 ng/mL (0.01-0.034)
[2020-11-23 14:14] LABS: CKMB % Relative Index 1.1 % (1.5-5.0); Creatine Kinase MB 1.27 ng/mL (<2.37)
[2020-11-23 14:17] LABS: Bacteria Urine None Seen; WBC Urine None Seen (0-5/HPF)
[2020-11-23 14:23] LABS: Culture Indicated Urine Cult Not Indicated; RBC Urine 1-5/HPF (0-5/HPF); Squamous Epithelial Cell Urine 1-5 /HPF (0-5/HPF)
[2020-11-23 15:42] LABS: Creatine Kinase 102 U/L (30-135)
[2020-11-23 15:54] LABS: Troponin I < 0.012 ng/mL (0.01-0.034)
[2020-11-23 15:57] LABS: CKMB % Relative Index 1.3 % (1.5-5.0); Creatine Kinase MB 1.31 ng/mL (<2.37)
--- NOTE | 2020-11-23 16:23 | PC.NURSE ---
pt was nauseated on arrival, pt states her heartburn was going up into her throat, pt states she is feeling better now.
[2020-11-23 16:24] VITALS: BP 168/88; PULSE 69; RESP 18; O2SAT 97
== END 2020-11-23 16:24 | disposition home or self-care (01) ==
PROVIDERS: Emergency Provider Emergency Medicine; PCP Family Medicine
DX: I10 Essential (primary) hypertension (principal); R42 Dizziness and giddiness; R20.0 Anesthesia of skin; R07.9 Chest pain, unspecified
CPT/HCPCS: 36415; 80053; 81003; 81015; 82550; 82553; 83690; 84484; 85025; 87086; 93005; 99284

== ENCOUNTER → 2020-12-14 10:19 | Outpatient (CLI) | payer OTHER, SELFPAY ==
[2020-12-14 11:15] LABS: BUN Creatinine Ratio 25.6 (6-22); Blood Urea Nitrogen 20 mg/dL (7-17); Calcium 9.5 mg/dL (8.4-10.2); Carbon Dioxide 27 mmol/L (22-32); Chloride 107 mmol/L (98-107); Estimated Glomerular Filt Rate > 60.0 mL/min (>60); Glucose 114 mg/dL (80-110); HEMOLYSIS < 15 (0-50); Magnesium 2.1 mg/dL (1.6-2.3); Potassium 4.2 mmol/L (3.4-5.1); Sodium 140 mmol/L (137-145)
[2020-12-14 11:29] LABS: Free T3, Triiodothyronine Free 3.82 pg/mL (2.77-5.27); Free T4, Direct Thyroxine 1.11 ng/dL (0.78-2.19)
[2020-12-14 11:43] LABS: Thyroid Stimulating Hormone 1.03 uIU/mL (0.47-4.68)
[2020-12-15 09:20] LABS: Thyroid Peroxidase Antibodies 17 IU/mL (0-34)
[2020-12-15 19:13] LABS: Anti Thyroglobulin Antibody <1.0 IU/mL (0.0-0.9)
[2020-12-18 09:31] LABS: Triiodothyronine T3 Reverse 18.8 ng/dL (9.2-24.1)
== END ==
PROVIDERS: PCP Family Medicine; Referring Provider Family Medicine; Visit Provider Family Medicine
DX: M06.9 Rheumatoid arthritis, unspecified (principal); E03.9 Hypothyroidism, unspecified; I10 Essential (primary) hypertension
CPT/HCPCS: 36415; 80048; 83735; 84439; 84443; 84481; 84482; 86376; 86800

== ENCOUNTER → 2021-04-27 10:19 | Outpatient (CLI) | payer MEDICARE, OTHER, SELFPAY ==
[2021-04-27 12:08] LABS: BUN Creatinine Ratio 18.9 (6-22); Blood Urea Nitrogen 18 mg/dL (7-17); Calcium 9.7 mg/dL (8.4-10.2); Carbon Dioxide 30 mmol/L (22-32); Chloride 104 mmol/L (98-107); Estimated Glomerular Filt Rate 58.9 mL/min (>60); Glucose 109 mg/dL (80-110); HEMOLYSIS < 15 (0-50); Potassium 4.7 mmol/L (3.4-5.1); Sodium 138 mmol/L (137-145)
== END ==
PROVIDERS: PCP Family Medicine; Referring Provider Family Medicine; Visit Provider Family Medicine
DX: I10 Essential (primary) hypertension (principal)
CPT/HCPCS: 36415; 80048

== ENCOUNTER → 2021-05-18 09:33 | Outpatient (CLI) | payer MEDICARE, OTHER, SELFPAY ==
[2021-05-18 11:05] LABS: Add Manual Diff / Slide Review NO; Basophils Absolute Auto 100 /uL (0-100); Basophils Percent Auto 0.9 % (0-2); Eosinophils Absolute Auto 200 /uL (0-450); Eosinophils Percent Auto 3.1 % (2-4); Hemoglobin 14.1 g/dL (12.0-16.0); Lymphocytes Absolute Auto 3200 /uL (1100-4500); Lymphocytes Percent Auto 44.8 % (25-40); Mean Corpuscular HGB Conc 33.7 % (30-36); Mean Corpuscular Hemoglobin 30.4 PG (26-34); Mean Corpuscular Volume 90.3 fL (80-100); Monocytes Absolute Auto 500 /uL (0-900); Monocytes Percent Auto 6.7 % (3-14); Neutrophils Absolute Auto 3200 /uL (1500-7000); Neutrophils Percent Auto 44.5 % (50-75); Platelet Count 201 X10^3/uL (150-400); Red Blood Cell Count 4.66 X10^6/uL (4.0-5.2); Red Cell Distribution Width 14.4 % (11.6-14.8); White Blood Cell Count 7.2 X10^3/uL (4.5-11.0)
[2021-05-18 11:18] LABS: Alanine Aminotransferase 27 IU/L (<35); Albumin 4.5 g/dL (3.5-5.0); Albumin Globulin Ratio 1.3 (1.0-2.8); Alkaline Phosphatase 92 U/L (38-126); Aspartate Aminotransferase 36 IU/L (14-36); BUN Creatinine Ratio 22.6 (6-22); Bilirubin Total 0.7 mg/dL (0.2-1.3); Blood Urea Nitrogen 21 mg/dL (7-17); C-Reactive Protein Quant < 0.5 mg/dL (<1.0); Calcium 9.3 mg/dL (8.4-10.2); Carbon Dioxide 29 mmol/L (22-32); Chloride 106 mmol/L (98-107); Cholesterol 207 mg/dL (140-199); Estimated Glomerular Filt Rate > 60.0 mL/min (>60); Globulin 3.4 g/dL (1.7-4.1); Glucose 96 mg/dL (80-110); HDL Cholesterol 47 mg/dL (40-60); HEMOLYSIS < 15 (0-50); LDL Cholesterol Calculated 132 mg/dL (<100); Potassium 4.2 mmol/L (3.4-5.1); Sodium 138 mmol/L (137-145); Total Protein 7.9 g/dL (6.3-8.2); Triglycerides 140 mg/dL (35-150)
[2021-05-18 11:52] LABS: TSH w/ Reflex to FT4 1.37 uIU/mL (0.47-4.68)
[2021-05-20 10:45] LABS: Lipase 107 U/L (23-300)
== END ==
PROVIDERS: Registered Nurse; PCP Family Medicine; Referring Provider Family Medicine; Visit Provider Family Medicine
DX: E66.3 Overweight (principal); E78.2 Mixed hyperlipidemia; E88.81 Metabolic syndrome and other insulin resistance; R74.8 Abnormal levels of other serum enzymes; E03.9 Hypothyroidism, unspecified; M05.9 Rheumatoid arthritis with rheumatoid factor, unspecified; R10.9 Unspecified abdominal pain; R31.9 Hematuria, unspecified
CPT/HCPCS: 36415; 80053; 80061; 83690; 84443; 85025; 86140; 87086

== ENCOUNTER → 2021-05-21 14:28 | Outpatient (CLI) | payer MEDICARE, OTHER, SELFPAY ==
--- NOTE | 2021-05-21 14:31 | DI.CT.S_ITS ---
PROCEDURE: CT ABDOMEN PELVIS W CON INDICATIONS: abdominal pain, diverticulitis? TECHNIQUE: After the administration of oral and intravenous contrast, axial sections were acquired from the lung bases to the pubic symphysis. Coronal and sagittal reformats were performed. For radiation dose reduction, the following was used: automated exposure control, adjustment of mA and/or kV according to patient size. COMPARISON:[facility], CT, CT ABDOMEN PELVIS W CON, 11/22/2018, 12:52. [facility], CT, CT ABDOMEN PELVIS W CON, 11/08/2020, 21:03. FINDINGS: Image quality: Excellent. Lung bases: Lung bases are clear. Heart: No significant findings. ABDOMEN: Liver: Unremarkable. Gallbladder: Unremarkable. Biliary ducts: Unremarkable. Pancreas: Unremarkable. Spleen: Unremarkable. Adrenal Glands: Unremarkable. Kidneys and Ureters: Unremarkable. Stomach and Bowel: Stomach, small bowel loops, and colon are unremarkable. Normal appendix. Colonic diverticulosis without acute diverticulitis. Stable postsurgical changes of distal left hemicolectomy with anastomotic suture line seen in the distal sigmoid colon. Peritoneum: No abnormal intraperitoneal fluid. No free air. Ventral Wall: No hernia. Abdominal Nodes: No retroperitoneal or mesenteric adenopathy by size criteria. Vessels: Aorta and inferior vena cava are normal in size. PELVIS: Pelvic Organs: Unremarkable. Bladder: Unremarkable. Pelvic Nodes: No enlarged lymph nodes. Miscellaneous: No inguinal hernias are seen. Bones: Unremarkable. IMPRESSION: 1. CT abdomen and pelvis without acute abnormalities to explain patient's symptoms. 2. Colonic diverticulosis without acute diverticulitis. 3. Normal appendix. Other chronic findings as above. Dictated by: Satish Carey M.D. on 05/21/2021 at 15:52 Approved by: Satish Carey M.D. on 05/21/2021 at 15:56
== END ==
PROVIDERS: PCP Registered Nurse; Referring Provider Registered Nurse; Visit Provider Registered Nurse
DX: K57.90 Diverticulosis of intestine, part unspecified, without perforation or abscess without bleeding (principal); R10.9 Unspecified abdominal pain
CPT/HCPCS: 74177; Q9967

== ENCOUNTER → 2021-07-21 10:16 | Outpatient (CLI) | payer MEDICARE, OTHER, SELFPAY ==
[2021-07-21 12:19] LABS: Appearance Urine UA CLEAR; Bilirubin Urine UA NEGATIVE (NEGATIVE); Color Urine UA YELLOW; Glucose Urine UA NEGATIVE (Negative); Ketones Urine UA NEGATIVE (NEGATIVE); Leukocyte Esterase Urine UA NEGATIVE (NEGATIVE); Nitrite Urine UA NEGATIVE (Negative); Occult Blood Urine UA 1+ (Negative); Protein Urine UA NEGATIVE (Negative); Urobilinogen Urine UA 0.2 E.U./dL (0.2)
[2021-07-21 12:20] LABS: pH Urine UA 6.5 (4.5-8.0)
[2021-07-21 12:24] LABS: Bacteria Urine None Seen; Culture Indicated Urine Cult Not Indicated; RBC Urine 1-5/HPF (0-5/HPF); WBC Urine None Seen (0-5/HPF)
== END ==
PROVIDERS: PCP Family Medicine; Referring Provider Family Medicine; Visit Provider Family Medicine
DX: R30.0 Dysuria (principal)
CPT/HCPCS: 81001

== ENCOUNTER → 2021-08-24 15:11 | Outpatient (CLI) | payer MEDICARE, OTHER, SELFPAY | PROVIDERS: PCP Family Medicine; Visit Provider Obstetrics & Gynecology | DX: N89.8 Other specified noninflammatory disorders of vagina (principal) | CPT/HCPCS: 87070; 87205 ==

== ENCOUNTER → 2021-11-23 16:40 | Outpatient (CLI) | payer MEDICARE, OTHER, SELFPAY ==
--- NOTE | 2021-11-23 16:43 | DI.MG.S_ITS ---
BILATERAL DIGITAL SCREENING MAMMOGRAM 3D/2D WITH CAD: 11/23/2021 CLINICAL: Routine screening. Family history of breast cancer. Comparison is made to exams dated: 04/28/2020 mammogram, 03/18/2019 mammogram, 03/01/2018 mammogram - [facility], and 08/15/2016 mammogram - [facility]. There are scattered fibroglandular elements in both breasts. Current study was also evaluated with a Computer Aided Detection (CAD) system. No significant masses, calcifications, or other findings are seen in either breast. There has been no significant interval change. IMPRESSION: NEGATIVE There is no mammographic evidence of malignancy. A 1 year screening mammogram is recommended. Based on the Tyrer Cuzick model (a risk assessment model) the patient's lifetime risk is 11.1% and her 10 year risk is 5.6%. According to the ACR, ACS, and NCCN guidelines, an annual breast MRI exam along with mammogram is recommended if the patient's lifetime risk is 20% or greater. This exam was interpreted at Station ID: [id number]. NOTE: For mammograms, a report in lay terms will be sent to the patient. Approximately 15% of breast malignancies will not be visualized mammographically. In the management of a palpable breast mass, a negative mammogram must not discourage biopsy of a clinically suspicious lesion. Electronically Signed By: Dick Mack M.D., jr/brian:11/24/2021 14:31:10 copy to: [facility] letter sent: Normal Exam ACR BI-RADS Category 1: Negative [id number]
== END ==
PROVIDERS: PCP Family Medicine; Referring Provider Family Medicine; Visit Provider Family Medicine
DX: Z12.31 Encounter for screening mammogram for malignant neoplasm of breast (principal); Z80.3 Family history of malignant neoplasm of breast
CPT/HCPCS: 77063; 77067

== ENCOUNTER → 2022-01-04 14:05 | Outpatient (CLI) | payer MEDICARE, OTHER, SELFPAY ==
[2022-01-04 19:01] LABS: Hepatitis B Surface Antigen NEGATIVE s/c (NEGATIVE)
[2022-01-05 02:10] LABS: Hepatitis B Surf AB Quant <3.1 mIU/mL (Immunity>9.9)
[2022-01-05 08:13] LABS: Rubeola Measles IgG > 300.0 AU/mL (Immune >16.4); Varicella IgG Antibody 495 index (Immune >165)
== END ==
PROVIDERS: PCP Family Medicine; Referring Provider Family Medicine; Visit Provider Family Medicine
DX: Z01.84 Encounter for antibody response examination (principal)
CPT/HCPCS: 36415; 86706; 86735; 86762; 86765; 86787; 87340

== ENCOUNTER 2022-08-28 09:04 | Emergency (ER) | payer MEDICARE, OTHER, SELFPAY ==
[2022-08-28] VITALS (7 sets, daily range): BP systolic 127–177; BP diastolic 61–83; PULSE 69–81; RESP 18–20; TEMP 36.6; O2SAT 97–100; BMI 29.7
--- NOTE | 2022-08-28 09:28 | ED_ITS ---
HPI - General Adult General Chief complaint: Abdominal Pain Stated complaint: diverticulitis symptoms, not feeling well, blad sy Time Seen by Provider: 08/28/22 09:07 Source: patient Mode of arrival: Ambulatory Limitations: no limitations History of Present Illness HPI narrative: 67-year-old female with complicated medical history to include history of interstitial cystitis, uterine cancer, diverticulitis status post colon resection. Just completed a course of Flagyl cream for bacterial vaginosis prescribed by her OB provider. She is also recently seen urology. Here for evaluation of 3 weeks of lower left-sided abdominal pain and back pain and urinary frequency. She states that this somewhat feels like her prior history of diverticulitis but not exact. No fevers. No vomiting. No blood in her stool. She is scheduled to get an infusion for her rheumatoid arthritis on Monday of this week. She was told that she needs to figure out if she had any sort of infection before she can get this infusion. Related Data Home Medications Medication Instructions Recorded Confirmed cholecalciferol (vitamin D3) 125 5,000 unit PO DAILY 03/20/18 08/17/22 mcg (5,000 unit) tablet (Vitamin D3) methotrexate sodium (PF) 25 mg/mL 0.4 ml SUBCUT QWEEK 03/20/18 08/17/22 injection solution golimumab 100 mg/mL subcutaneous 200 mg SUBCUT ONCE 09/13/18 08/17/22 pen injector (Simponi) acetaminophen 500 mg tablet 500 mg PO Q4H PRN 04/30/19 08/17/22 (Tylenol Extra Strength) leucovorin calcium 5 mg tablet 10 mg PO .COMPLEX 06/15/20 08/17/22 Previous Rx's Medication Instructions Recorded Tirosint 50 mcg capsule 50 mcg PO DAILY #90 caps 03/01/21 (levothyroxine) amitriptyline 10 mg tablet 5 mg PO BEDTIME #45 tabs 04/29/21 pravastatin 20 mg tablet See Rx Instructions .Route 05/26/21 .COMPLEX #90 tabs estradiol 10 mcg vaginal tablet 10 mcg vaginal 3XW #36 tabs 09/27/21 CMP Clobetasol 0.05% Oint in See Rx Instructions .Route 07/19/22 Versabase .COMPLEX #30 grams fluconazole 150 mg tablet See Rx Instructions .Route 07/22/22 .COMPLEX #3 tabs Allergies Allergy/AdvReac Type Severity Reaction Status Date / Time ciprofloxacin [CIPROFLOXACIN] Allergy Mild swollen Verified 08/28/22 09:31 tendons sulfamethoxazole Allergy Mild RASH Verified 08/28/22 09:31 cefuroxime [From CEFTIN] AdvReac Mild GI upset Verified 08/28/22 09:31 doxycycline [DOXYCYCLINE] AdvReac Mild severe Verified 08/28/22 09:31 gastritis trimethoprim [From Septra] AdvReac rash Verified 08/28/22 09:31 Review of Systems Constitutional Constitutional: Reports system reviewed and no additional complaints, except as documented Cardiovascular Cardiovascular: Reports system reviewed and no additional complaints, except as documented Respiratory Respiratory: Reports system reviewed and no additional complaints, except as documented Gastrointestinal Gastrointestinal: Reports system reviewed and no additional complaints, except as documented Genitourinary Genitourinary: Reports system reviewed and no additional complaints, except as documented Integumentary/Breasts Skin/Breast: Reports system reviewed and no additional complaints, except as documented Hematologic/Lymphatic On Anticoagulants: No Patient History Medical History Abdominal pain Acquired hypothyroidism Anxiety (2012) Blood in urine Chicken pox (1959) Colon polyps (09/2016) Compound heterozygous MTHFR mutation 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 Diverticular disease (2008) Diverticulitis Essential hypertension Fibromyalgia (1985) GERD (gastroesophageal reflux disease) (2008) Hematuria (1985) Hemorrhoids (2016) Hyperlipidemia IBS (irritable bowel syndrome) (2016) Measles Mumps Mural thickening of sigmoid colon Obesity Osteoarthritis (1995) Osteoarthritis of knees, bilateral Osteopenia (2009) Osteoporosis Reflux esophagitis Rheumatoid arthritis () Thyroid nodule (2013) Tinnitus (2014) Uterine cancer (04/2016) Surgical History Anesthesia complication S/P partial colectomy Status post colonoscopy (04/2016) Status post endoscopy (04/2016) Status post hysterectomy (04/2016) Status post knee surgery (04/2015) Status post tubal ligation (1986) Family History Brother Age: 63 Multiple sclerosis Brother Age: 47 IBS (irritable bowel syndrome) Father Age: 87 Alzheimer's disease Mother Age: 87 Breast cancer Heart disease Hypertension High cholesterol Dementia Congestive heart failure Sister Age: 61 Sjogren's syndrome Grandfather No problems noted. Grandmother No problems noted. Grandfather No problems noted. Grandmother No problems noted. Social History marital status: household members: spouse pets and animals: Yes education level: college [employer]uism: [employer] other: walking,hiking,singing,painting,drawing,knitting seatbelt use: always helmet use: Yes water heater temp set < 120 deg: Yes working smoke detector in home: Yes fire extinguisher in home: Yes carbon monox detector in home: Yes firearms in home: No Smoking Status: Never smoker alcohol intake: never substance use type: does not use during the past year weight has: decreased > 10 lbs well-balanced diet: daily or most days daily servings fruits/ve-1 caffeine: Yes eating out: rarely or never Smoking Status: Never smoker alcohol intake frequency: 0-2 drinks per day Substance Use Type: does not use Exam Initial Vital Signs Initial Vital Signs: Vital Signs Pulse Rate 78 08/28/22 09:10 Blood Pressure 177/83 H 08/28/22 09:10 Pulse Oximetry 98 08/28/22 09:10 HENMT Head: normal to inspection and normocephalic Resp Effort & Inspection: normal respiratory effort Auscultation: clear to auscultation bilaterally Cardio Rate: regular rate Rhythm: regular rhythm GI Inspection: normal to inspection Palpation: soft, No firm, No guarding and tender Back/Spine/Pelvis Back: No CVA tenderness Skin General: no rashes or lesions noted Neuro General: patient alert and moves all extremities Extrem General: normal to inspection and capillary refill normal Course Orders Ordered: ED Orders 08/28/22 09:30 CT abdomen pelvis w con Stat Complete Blood Count AUTO DIFF Stat Comprehensive Metabolic Panel Stat Lipase Stat Urinalysis and Microscopic Stat Urine Culture Stat Sodium Chloride (Normal Saline 0.9%) 1,000 mls @ 1,000 mls/hr IV BOLUS ONE Stop: 08/28/22 10:28 Last Admin: 08/28/22 09:32 Dose: 1,000 mls/hr Documented By: OW Vital Signs Vital signs: Vital Signs - 8 hr 08/28/22 09:17 05/14/23 09:10 08/28/22 09:10 Temperature 97.9 F Pulse Rate 76 78 Respiratory Rate 20 Blood Pressure 127/83 177/83 H Pulse Oximetry 99 98 Oxygen Delivery Method Room Air 08/28/22 09:37 08/28/22 09:37 08/28/22 09:50 Temperature Pulse Rate 77 Respiratory Rate Blood Pressure 163/76 H 169/73 H Pulse Oximetry 97 Oxygen Delivery Method 08/28/22 09:50 08/28/22 10:00 08/28/22 10:01 Temperature Pulse Rate 81 69 Respiratory Rate Blood Pressure 141/61 H Pulse Oximetry 98 99 Oxygen Delivery Method 08/28/22 10:01 Temperature Pulse Rate 73 Respiratory Rate Blood Pressure Pulse Oximetry 100 Oxygen Delivery Method Medical Decision Making Medical Records Medical records reviewed: Yes I reviewed the patient's medical records. Lab Data Lab results reviewed: Yes I reviewed the patient's lab results. 08/28/22 09:35 08/28/22 09:35 Labs: Lab Results 08/28/22 08/28/22 08/28/22 Range/Units 09:30 09:35 09:35 WBC 7.4 (4.5-11.0) X10^3/uL RBC 4.75 (4.0-5.2) X10^6/uL Hgb 14.4 (12.0-16.0) g/dL Hct 43.1 (36-46) % MCV 90.7 (80-100) fL MCH 30.4 (26-34) PG MCHC 33.5 (30-36) % RDW 14.6 (11.6-14.8) % Plt Count 184 (150-400) X10^3/uL Neut % (Auto) 51.4 (50-75) % Lymph % (Auto) 37.2 (25-40) % [place] % (Auto) 7.1 (3-14) % Eos % (Auto) 3.6 (2-4) % Baso % (Auto) 0.7 (0-2) % Neut # (Auto) 3800 (6291-7044) /uL Lymph # (Auto) 2700 (6948-1436) /uL [place] # (Auto) 500 (0-900) /uL Eos # (Auto) 300 (0-450) /uL Baso # (Auto) 100 (0-100) /uL Sodium 139 (137-145) mmol/L Potassium 4.1 (3.4-5.1) mmol/L Chloride 105 (98-107) mmol/L Carbon Dioxide 26 (22-32) mmol/L BUN 22 H (7-17) mg/dL Creatinine 0.77 (0.52-1.04) mg/dL Estimated GFR > 60 (>60) mL/min BUN/Creatinine Ratio 28.6 H (6-22) Glucose 121 H (80-110) mg/dL Calcium 9.1 (8.4-10.2) mg/dL Total Bilirubin 0.4 (0.2-1.3) mg/dL AST 28 (14-36) IU/L ALT 26 (<35) IU/L Alkaline Phosphatase 106 (38-126) U/L Total Protein 8.0 (6.3-8.2) g/dL Albumin 4.5 (3.5-5.0) g/dL Globulin 3.5 (1.7-4.1) g/dL Albumin/Globulin Ratio 1.3 (1.0-2.8) Lipase 137 (23-300) U/L Urine Color Yellow Urine Appearance Clear Urine pH 6.0 (4.5-8.0) Ur Specific [place] <=1.005 (1.000-1.035) Urine Protein Negative (Negative) Urine Glucose (UA) Negative (Negative) g/dL Urine Ketones Negative (NEGATIVE) Urine Occult Blood 2+ H (Negative) Urine Nitrate Negative (Negative) Urine Bilirubin Negative (NEGATIVE) Urine Urobilinogen 0.2 (0.2) E.U./dL Ur Leukocyte Esterase Negative (NEGATIVE) Urine RBC 1-5/hpf (0-5/HPF) Urine WBC 0-1/hpf (0-5/HPF) Ur Squamous Epith Cells 1-5 /hpf (0-5/HPF) Amorphous Sediment 1+ Urine Bacteria Few (2-10) H (None) Ur Culture Indicated? Specimen cultured Urine Dip Bedside Urine Glucose Negative Bedside Urine Bilirubin - Negative Bedside Urine Ketone - Negative Urine Specific [place] 1.010 Bedside Urine Occult Blood ++ Bedside Urine pH 6.0 Bedside Urine Protein - Negative Bedside Urine Urobilinogen - Negative Bedside Urine Nitrite - Negative Bedside Urine Leukocytes - Negative Esterase Point of care testing: Urine Dip Bedside Urine Glucose Negative Bedside Urine Bilirubin - Negative Bedside Urine Ketone - Negative Urine Specific [place] 1.010 Bedside Urine Occult Blood ++ Bedside Urine pH 6.0 Bedside Urine Protein - Negative Bedside Urine Urobilinogen - Negative Bedside Urine Nitrite - Negative Bedside Urine Leukocytes - Negative Esterase Imaging Data CT scan - abdomen/pelvis: Radiologist's Impression: PROCEDURE:? CT ABDOMEN PELVIS W CON ? INDICATIONS:? LLQ abd pain ? TECHNIQUE:? After the administration of intravenous contrast, axial sections acquired from the lung bases to the pubic symphysis.? Coronal and sagittal reformats were performed.? For radiation dose reduction, the following was used:? automated exposure control, adjustment of mA and/or kV according to patient size.? ? COMPARISON:? [facility], CT, CT ABDOMEN PELVIS W CON, 05/21/2021, 15:14. ? FINDINGS:? Image quality:? Excellent.? ? Lung bases:? Unremarkable. Heart:? No significant findings. ? ABDOMEN: Liver:? Unremarkable.? ? Gallbladder:? Unremarkable.? ? Biliary ducts:? Unremarkable.? ? Pancreas:? Unremarkable.? ? Spleen:? Unremarkable.? ? Adrenal Glands:? Unremarkable.? ? Kidneys and Ureters:? Unremarkable.? ? ? Stomach and Bowel:? Stomach, small bowel loops, and colon are unremarkable.? Nor mal appendix.? Anastomotic clips within the sigmoid colon. Peritoneum:? No abnormal intraperitoneal fluid.? No free air.? ? Ventral Wall: ? No hernias.? Abdominal Nodes:? No retroperitoneal or mesenteric adenopathy by size criteria.? Vessels:? Aorta and inferior vena cava are normal in size.? ? PELVIS: Pelvic Organs:? Unremarkable.? ? Bladder:? Unremarkable.? ? Pelvic Nodes: No enlarged lymph nodes.? Miscellaneous: No hernias are seen. ? ? ? Bones:? Unremarkable.? IMPRESSION:? 1. No acute process. 2. Normal appendix. MDM Narrative Medical decision making narrative: Patient does have a benign exam today. CT scan shows no acute pathology. She does have hematuria which he states is not unusual for her. She is under the care of urology and is scheduled to see her urologist coming up soon to have a cystoscopy. Indication for antibiotics. No indication for surgical consultation. No indication for urologic consultation. I suspect that her bladder spasms or caused by the hematuria. Patient has been on antispasm medications in the past however they have cause urinary retention. She does have Pyridium/azo at home which she can take. I did discuss all this with her. She is going to see her alcoholic counselor later this week and also her counter sales person later this week as well. She was given return precautions. She expressed understanding and agreement. Discharge Plan Departure Patient Disposition: Home Clinical Impression: Hematuria, Abdominal pain Instructions: DI for Abdominal Pain-Adult, DI for Hematuria Activity Restrictions/Additional Instructions: Recommend that you continue to take all of your medications as directed. Contact your primary doctor for a follow-up and keep all of your scheduled medical appointments. Return to the emergency department for new symptoms. Prescriptions: No Action amitriptyline 10 mg tablet 5 mg PO BEDTIME Qty: 45 1RF pravastatin 20 mg tablet See Rx Instructions .ROUTE .COMPLEX Qty: 90 3RF Hold Instructions: has lost weight Dose Instruction: TAKE 1 TABLET AT BEDTIME Rx Instructions: TAKE 1 TABLET AT BEDTIME estradiol 10 mcg tablet 10 mcg vaginal 3XW Qty: 36 3RF Rx Instructions: [facility] pharmacy. fluconazole 150 mg tablet See Rx Instructions .ROUTE .COMPLEX Qty: 3 0RF Dose Instruction: TAKE ONE TABLET BY MOUTH NOW. MAY REPEAT SECOND DOSE IN 3 TO 5 DAYS IF SYMP TOMS PERSIST AND A THIRD DOSE IN 7 DAYS. Rx Instructions: TAKE ONE TABLET BY MOUTH NOW. MAY REPEAT SECOND DOSE IN 3 TO 5 DAYS IF SYMPTOMS PERSIST AND A THIRD DOSE IN 7 DAYS. Simponi 100 mg/mL pen injector 200 mg SUBCUT ONCE leucovorin calcium 5 mg tablet 10 mg PO .COMPLEX Rx Instructions: 10 mg PO 12-14 hours after methotrexate; Tirosint 50 mcg capsule 50 mcg PO DAILY Qty: 90 3RF acetaminophen [Tylenol Extra Strength] 500 mg tablet 500 mg PO Q4H PRN CMP Clobetasol 0.05% Oint in Versabase See Rx Instructions .ROUTE .COMPLEX Qty: 30 2RF Rx Instructions: Apply small amount to external genitalia PRN. Makers methotrexate sodium (PF) 25 mg/mL solution 0.4 ml subcut QWEEK Patient Comments: monday or Monday cholecalciferol (vitamin D3) [Vitamin D3] 5,000 unit Tablet 5,000 unit PO DAILY Referrals: Alayna Nowak DO [Primary Care Provider] - Stand Alone Forms: Patient Portal/API
--- NOTE | 2022-08-28 09:30 | DI.CT.S_ITS ---
PROCEDURE: CT ABDOMEN PELVIS W CON INDICATIONS: LLQ abd pain TECHNIQUE: After the administration of intravenous contrast, axial sections acquired from the lung bases to the pubic symphysis. Coronal and sagittal reformats were performed. For radiation dose reduction, the following was used: automated exposure control, adjustment of mA and/or kV according to patient size. COMPARISON: [facility], CT, CT ABDOMEN PELVIS W CON, 05/21/2021, 15:14. FINDINGS: Image quality: Excellent. Lung bases: Unremarkable. Heart: No significant findings. ABDOMEN: Liver: Unremarkable. Gallbladder: Unremarkable. Biliary ducts: Unremarkable. Pancreas: Unremarkable. Spleen: Unremarkable. Adrenal Glands: Unremarkable. Kidneys and Ureters: Unremarkable. Stomach and Bowel: Stomach, small bowel loops, and colon are unremarkable. Normal appendix. Anastomotic clips within the sigmoid colon. Peritoneum: No abnormal intraperitoneal fluid. No free air. Ventral Wall: No hernias. Abdominal Nodes: No retroperitoneal or mesenteric adenopathy by size criteria. Vessels: Aorta and inferior vena cava are normal in size. PELVIS: Pelvic Organs: Unremarkable. Bladder: Unremarkable. Pelvic Nodes: No enlarged lymph nodes. Miscellaneous: No hernias are seen. Bones: Unremarkable. IMPRESSION: 1. No acute process. 2. Normal appendix. Dictated by: Berry Michelle M.D. on 08/28/2022 at 10:03 Approved by: Berry Michelle M.D. on 08/28/2022 at 10:04
[2022-08-28] MEDS: SODIUM CHLORIDE 0.9% 1,000 ML 1000 ML IV (09:32)
[2022-08-28 09:33] LABS: Appearance Urine UA CLEAR; Bilirubin Urine UA NEGATIVE (NEGATIVE); Color Urine UA YELLOW; Glucose Urine UA NEGATIVE (Negative); Ketones Urine UA NEGATIVE (NEGATIVE); Leukocyte Esterase Urine UA NEGATIVE (NEGATIVE); Nitrite Urine UA NEGATIVE (Negative); Occult Blood Urine UA 2+ (Negative); Protein Urine UA NEGATIVE (Negative); Specific Gravity Urine UA <=1.005 (1.000-1.035); Urobilinogen Urine UA 0.2 E.U./dL (0.2)
[2022-08-28 09:39] LABS: Amorphous Sediment Urine 1+; Bacteria Urine Few (2-10); Culture Indicated Urine Specimen Cultured; RBC Urine 1-5/HPF (0-5/HPF); Squamous Epithelial Cell Urine 1-5 /HPF (0-5/HPF); WBC Urine 0-1/HPF (0-5/HPF)
[2022-08-28 09:45] LABS: Add Manual Diff / Slide Review NO; Basophils Absolute Auto 100 /uL (0-100); Basophils Percent Auto 0.7 % (0-2); Eosinophils Absolute Auto 300 /uL (0-450); Eosinophils Percent Auto 3.6 % (2-4); Hematocrit 43.1 % (36-46); Hemoglobin 14.4 g/dL (12.0-16.0); Lymphocytes Absolute Auto 2700 /uL (1100-4500); Lymphocytes Percent Auto 37.2 % (25-40); Mean Corpuscular HGB Conc 33.5 % (30-36); Mean Corpuscular Hemoglobin 30.4 PG (26-34); Mean Corpuscular Volume 90.7 fL (80-100); Monocytes Absolute Auto 500 /uL (0-900); Monocytes Percent Auto 7.1 % (3-14); Neutrophils Absolute Auto 3800 /uL (1500-7000); Neutrophils Percent Auto 51.4 % (50-75); Platelet Count 184 X10^3/uL (150-400); Red Blood Cell Count 4.75 X10^6/uL (4.0-5.2); Red Cell Distribution Width 14.6 % (11.6-14.8); White Blood Cell Count 7.4 X10^3/uL (4.5-11.0)
[2022-08-28 09:59] LABS: Alanine Aminotransferase 26 IU/L (<35); Albumin 4.5 g/dL (3.5-5.0); Albumin Globulin Ratio 1.3 (1.0-2.8); Alkaline Phosphatase 106 U/L (38-126); Aspartate Aminotransferase 28 IU/L (14-36); BUN Creatinine Ratio 28.6 (6-22); Bilirubin Total 0.4 mg/dL (0.2-1.3); Blood Urea Nitrogen 22 mg/dL (7-17); Calcium 9.1 mg/dL (8.4-10.2); Carbon Dioxide 26 mmol/L (22-32); Chloride 105 mmol/L (98-107); Estimated Glomerular Filt Rate > 60 mL/min (>60); Globulin 3.5 g/dL (1.7-4.1); Glucose 121 mg/dL (80-110); HEMOLYSIS 22 (0-50); Lipase 137 U/L (23-300); Potassium 4.1 mmol/L (3.4-5.1); Sodium 139 mmol/L (137-145)
== END 2022-08-28 10:40 | disposition home or self-care (01) ==
PROVIDERS: Emergency Provider Emergency Medicine; PCP Family Medicine
DX: R10.32 Left lower quadrant pain (principal); R31.9 Hematuria, unspecified
CPT/HCPCS: 36415; 74177; 80053; 81001; 81003; 83690; 85025; 87086; 99284; Q9967

== ENCOUNTER → 2022-08-31 16:44 | Outpatient (CLI) | payer MEDICARE, OTHER, SELFPAY ==
[2022-09-01 14:12] LABS: Strep Grp B PCR NEG for Grp B Strep
[2022-09-02 12:56] LABS: Candida species Negative (Negative); Gardnerella vaginalis Negative (Negative); Trichomoas vaginalis Negative (Negative)
== END ==
PROVIDERS: PCP Family Medicine; Visit Provider Obstetrics & Gynecology
DX: N90.89 Other specified noninflammatory disorders of vulva and perineum (principal); N95.2 Postmenopausal atrophic vaginitis
CPT/HCPCS: 87070; 87205; 87480; 87510; 87653; 87660

== ENCOUNTER 2022-11-14 11:53 | Emergency (ER) | payer MEDICARE, OTHER, SELFPAY ==
[2022-11-14 12:06] VITALS: BP 208/111; PULSE 78; RESP 17; TEMP 36.6; O2SAT 99; BMI 29.7
[2022-11-14 12:23] LABS: Add Manual Diff / Slide Review NO; Basophils Absolute Auto 100 /uL (0-100); Basophils Percent Auto 1.1 % (0-2); Eosinophils Absolute Auto 300 /uL (0-450); Eosinophils Percent Auto 3.6 % (2-4); Hematocrit 41.5 % (36-46); Hemoglobin 13.7 g/dL (12.0-16.0); Lymphocytes Absolute Auto 3100 /uL (1100-4500); Lymphocytes Percent Auto 34.9 % (25-40); Mean Corpuscular HGB Conc 33.1 % (30-36); Mean Corpuscular Hemoglobin 30.3 PG (26-34); Mean Corpuscular Volume 91.5 fL (80-100); Monocytes Absolute Auto 700 /uL (0-900); Monocytes Percent Auto 7.9 % (3-14); Neutrophils Absolute Auto 4700 /uL (1500-7000); Neutrophils Percent Auto 52.5 % (50-75); Platelet Count 213 X10^3/uL (150-400); Red Blood Cell Count 4.53 X10^6/uL (4.0-5.2); Red Cell Distribution Width 14.1 % (11.6-14.8); White Blood Cell Count 8.9 X10^3/uL (4.5-11.0)
[2022-11-14 12:36] LABS: Alanine Aminotransferase 22 IU/L (<35); Albumin 4.4 g/dL (3.5-5.0); Albumin Globulin Ratio 1.2 (1.0-2.8); Alkaline Phosphatase 97 U/L (38-126); Aspartate Aminotransferase 26 IU/L (14-36); BUN Creatinine Ratio 17.3 (6-22); Bilirubin Total 0.5 mg/dL (0.2-1.3); Blood Urea Nitrogen 13 mg/dL (7-17); Calcium 9.2 mg/dL (8.4-10.2); Carbon Dioxide 29 mmol/L (22-32); Chloride 104 mmol/L (98-107); Estimated Glomerular Filt Rate > 60 mL/min (>60); Globulin 3.6 g/dL (1.7-4.1); Glucose 111 mg/dL (80-110); HEMOLYSIS < 15 (0-50); Lactate (Lactic Acid) 1.3 mmol/L (0.7-2.1); Lipase 66 U/L (23-300); Potassium 3.9 mmol/L (3.4-5.1); Sodium 139 mmol/L (137-145)
--- NOTE | 2022-11-14 12:41 | ED_ITS ---
HPI - Abdominal Pain General Chief Complaint: Abdominal Pain Stated Complaint: abd pain t-21 Time Seen by Provider: 11/14/22 12:04 Source: patient Mode of arrival: Ambulatory History of Present Illness HPI narrative: 67-year-old female nonsmoker with history of interstitial cystitis prior diagnoses abdominal pain presents with a chief complaint of abdominal pain for the past 3 weeks. She does have a history of diverticulitis but not since a surgical intervention about 5 years ago. She is been having smelly diarrhea which is reminiscent of prior episodes of diverticulitis as well as mid abdominal pain, rectal pain and left lower quadrant pain. Related Data Home Medications Medication Instructions Recorded Confirmed cholecalciferol (vitamin D3) 125 5,000 unit PO DAILY 03/20/18 11/01/22 mcg (5,000 unit) tablet (Vitamin D3) methotrexate sodium (PF) 25 mg/mL 0.4 ml SUBCUT QWEEK 03/20/18 11/01/22 injection solution golimumab 100 mg/mL subcutaneous 200 mg SUBCUT ONCE 09/13/18 11/01/22 pen injector (Simponi) acetaminophen 500 mg tablet 500 mg PO Q4H PRN 04/30/19 11/01/22 (Tylenol Extra Strength) leucovorin calcium 5 mg tablet 10 mg PO .COMPLEX 06/15/20 11/01/22 Previous Rx's Medication Instructions Recorded Tirosint 50 mcg capsule 50 mcg PO DAILY #90 caps 03/01/21 (levothyroxine) amitriptyline 10 mg tablet 5 mg PO BEDTIME #45 tabs 04/29/21 pravastatin 20 mg tablet See Rx Instructions .Route 05/26/21 .COMPLEX #90 tabs estradiol 10 mcg vaginal tablet 10 mcg vaginal 3XW #36 tabs 09/27/21 hydrocortisone acetate 25 mg 25 mg MN BEDTIME PRN hemorrhoids 11/01/22 rectal suppository (Anusol-HC) #12 ea amoxicillin 875 mg-potassium 1 tab PO BID #20 tabs 11/14/22 clavulanate 125 mg tablet ondansetron 4 mg disintegrating 4 mg PO TID-QID PRN nausea and 11/14/22 tablet vomiting #10 tabs Allergies Allergy/AdvReac Type Severity Reaction Status Date / Time sulfamethoxazole Allergy Mild RASH Verified 11/01/22 15:35 nitrofurantoin AdvReac Severe Dizziness Verified 11/01/22 15:35 [From Macrodantin] cefuroxime [From CEFTIN] AdvReac Mild GI upset Verified 11/01/22 15:35 ciprofloxacin [CIPROFLOXACIN] AdvReac Mild swollen Verified 11/01/22 15:35 tendons doxycycline [DOXYCYCLINE] AdvReac Mild severe Verified 11/01/22 15:35 gastritis trimethoprim [From Septra] AdvReac rash Verified 11/01/22 15:35 Review of Systems Review of Systems Narrative: GENERAL: Denies chills, fatigue, malaise, fever, sweats. HEENT: Denies sinus pain, ear pain, sore throat, difficulty swallowing, dizziness. RESPIRATORY: Denies dyspnea, cough, wheezing, hemoptysis, sputum. CARDIOVASCULAR: Denies chest pain, palpitations, orthopnea, edema, GASTROINTESTINAL: See HPI : Denies dysuria, frequency, incontinence, hematuria, urinary retention. MUSCULOSKELETAL: denies weakness, joint pain, or bony pain SKIN: Denies rash, skin lesions, or other NEUROLOGIC: Denies weakness, headache, numbness, change in speech, confusion, seizures, incoordination. PSYCHIATRIC: No concerning psychosocial issues. 12 point review of systems is negative except for those stated above Patient History Medical History Abdominal pain Acquired hypothyroidism Anxiety (2012) Blood in urine Chicken pox (1959) Colon polyps (09/2016) Compound heterozygous MTHFR mutation [id number] Degenerative joint disease (DJD) of lumbar spine Diverticular disease (2008) Diverticulitis Essential hypertension Fibromyalgia (1985) GERD (gastroesophageal reflux disease) (2008) Hematuria (1985) Hemorrhoids (2016) Hyperlipidemia IBS (irritable bowel syndrome) (2016) Measles Mumps Mural thickening of sigmoid colon Obesity Osteoarthritis (1995) Osteoarthritis of knees, bilateral Osteopenia (2009) Osteoporosis Reflux esophagitis Rheumatoid arthritis (~1998) Thyroid nodule (2013) Tinnitus (2014) Uterine cancer (04/2016) Surgical History Anesthesia complication S/P partial colectomy Status post colonoscopy (04/2016) Status post endoscopy (04/2016) Status post hysterectomy (04/2016) Status post knee surgery (04/2015) Status post tubal ligation (1986) Family History Brother Age: 65 Multiple sclerosis Brother Age: 49 IBS (irritable bowel syndrome) Father Age: 89 Alzheimer's disease Mother Age: 89 Breast cancer Heart disease Hypertension High cholesterol Dementia Congestive heart failure Sister Age: 63 Sjogren's syndrome Grandfather No problems noted. Grandmother No problems noted. Grandfather No problems noted. Grandmother No problems noted. Social History marital status: household members: spouse pets and animals: Yes education level: college richard/synagogue: [employer]arian other: walking,hiking,singing,painting,drawing,knitting seatbelt use: always helmet use: Yes water heater temp set < 120 deg: Yes working smoke detector in home: Yes fire extinguisher in home: Yes carbon monox detector in home: Yes firearms in home: No Smoking Status: Never smoker alcohol intake: never substance use type: does not use during the past year weight has: decreased > 10 lbs well-balanced diet: daily or most days daily servings fruits/ve-1 caffeine: Yes eating out: rarely or never Smoking Status: Never smoker alcohol intake frequency: 0-2 drinks per day Substance Use Type: does not use Exam Narrative Exam Narrative: GENERAL: [67] year old patient appears stated age. Well-developed patient, in mild distress. HEAD: Atraumatic. Normocephalic. EYES: Pupils equal round and reactive. Extraocular motions intact. No scleral icterus. No injection or drainage. ENT: Nose without bleeding, purulent drainage. Throat without erythema, tonsillar hypertrophy or exudate. Airway patent. NECK: Trachea midline. Non tender CARDIOVASCULAR: Regular rate and rhythm without murmurs, gallops, or rubs. RESPIRATORY: Clear to auscultation. Breath sounds equal bilaterally. No wheezes, rales, or rhonchi. GASTROINTESTINAL: Abdomen soft, tender across the mid abdomen, soft no guarding, nondistended. EXTREMITIES: No edema or joint tenderness. BACK: Nontender without deformity or crepitance. No flank tenderness. NEURO: AOx3. SKIN: No rash or erythema of visible areas Initial Vital Signs Initial Vital Signs: Vital Signs Temperature 98 F 11/14/22 12:06 Pulse Rate 78 11/14/22 12:06 Respiratory Rate 17 11/14/22 12:06 Blood Pressure 208/111 H 11/14/22 12:06 Pulse Oximetry 99 11/14/22 12:06 Oxygen Delivery Method Room Air 11/14/22 12:06 Course Orders Ordered: ED Orders 11/14/22 12:06 EKG-12 Lead Stat 11/14/22 12:08 Complete Blood Count AUTO DIFF Stat Comprehensive Metabolic Panel Stat Lactate (Lactic Acid) Stat Lipase Stat Urine Microscopic Stat 11/14/22 13:17 CT abdomen pelvis w con Stat Discontinued Medications Ondansetron HCl (Ondansetron 4 Mg Odt) 4 mg PO NOW PRN PRN Reason: Nausea And Vomiting Ondansetron HCl (Ondansetron 4 Mg/2 Ml Inj) 4 mg IV NOW PRN PRN Reason: Nausea And Vomiting Vital Signs Vital signs: Vital Signs - 8 hr 11/14/22 12:06 11/14/22 12:57 11/14/22 12:57 Temperature 98 F Pulse Rate 78 72 Respiratory Rate 17 Blood Pressure 208/111 H 191/89 H Pulse Oximetry 99 98 Oxygen Delivery Method Room Air 11/14/22 13:00 11/14/22 13:00 11/14/22 13:34 Temperature Pulse Rate 68 79 Respiratory Rate Blood Pressure 172/83 H Pulse Oximetry 98 92 Oxygen Delivery Method Room Air 11/14/22 14:00 11/14/22 14:00 Temperature Pulse Rate 71 Respiratory Rate Blood Pressure 160/83 H Pulse Oximetry 98 Oxygen Delivery Method MDM - Abdominal Pain Lab Data 11/14/22 12:08 11/14/22 12:08 Labs: Lab Results 11/14/22 11/14/22 11/14/22 Range/Units 12:08 12:08 12:08 WBC 8.9 (4.5-11.0) X10^3/uL RBC 4.53 (4.0-5.2) X10^6/uL Hgb 13.7 (12.0-16.0) g/dL Hct 41.5 (36-46) % MCV 91.5 (80-100) fL MCH 30.3 (26-34) PG MCHC 33.1 (30-36) % RDW 14.1 (11.6-14.8) % Plt Count 213 (150-400) X10^3/uL Neut % (Auto) 52.5 (50-75) % Lymph % (Auto) 34.9 (25-40) % [place] % (Auto) 7.9 (3-14) % Eos % (Auto) 3.6 (2-4) % Baso % (Auto) 1.1 (0-2) % Neut # (Auto) 4700 (1882-0523) /uL Lymph # (Auto) 3100 (1193-0709) /uL [place] # (Auto) 700 (0-900) /uL Eos # (Auto) 300 (0-450) /uL Baso # (Auto) 100 (0-100) /uL Sodium 139 (137-145) mmol/L Potassium 3.9 (3.4-5.1) mmol/L Chloride 104 (98-107) mmol/L Carbon Dioxide 29 (22-32) mmol/L BUN 13 (7-17) mg/dL Creatinine 0.75 (0.52-1.04) mg/dL Estimated GFR > 60 (>60) mL/min BUN/Creatinine Ratio 17.3 (6-22) Glucose 111 H (80-110) mg/dL Lactate 1.3 (0.7-2.1) mmol/L Calcium 9.2 (8.4-10.2) mg/dL Total Bilirubin 0.5 (0.2-1.3) mg/dL AST 26 (14-36) IU/L ALT 22 (<35) IU/L Alkaline Phosphatase 97 (38-126) U/L Total Protein 8.0 (6.3-8.2) g/dL Albumin 4.4 (3.5-5.0) g/dL Globulin 3.6 (1.7-4.1) g/dL Albumin/Globulin Ratio 1.2 (1.0-2.8) Lipase 66 (23-300) U/L Urine RBC (0-5/HPF) Urine WBC (0-5/HPF) Ur Squamous Epith Cells (0-5/HPF) Urine Bacteria (None) Ur Culture Indicated? 11/14/22 Range/Units 12:08 WBC (4.5-11.0) X10^3/uL RBC (4.0-5.2) X10^6/uL Hgb (12.0-16.0) g/dL Hct (36-46) % MCV (80-100) fL MCH (26-34) PG MCHC (30-36) % RDW (11.6-14.8) % Plt Count (150-400) X10^3/uL Neut % (Auto) (50-75) % Lymph % (Auto) (25-40) % [place] % (Auto) (3-14) % Eos % (Auto) (2-4) % Baso % (Auto) (0-2) % Neut # (Auto) (9264-1057) /uL Lymph # (Auto) (2515-1675) /uL [place] # (Auto) (0-900) /uL Eos # (Auto) (0-450) /uL Baso # (Auto) (0-100) /uL Sodium (137-145) mmol/L Potassium (3.4-5.1) mmol/L Chloride (98-107) mmol/L Carbon Dioxide (22-32) mmol/L BUN (7-17) mg/dL Creatinine (0.52-1.04) mg/dL Estimated GFR (>60) mL/min BUN/Creatinine Ratio (6-22) Glucose (80-110) mg/dL Lactate (0.7-2.1) mmol/L Calcium (8.4-10.2) mg/dL Total Bilirubin (0.2-1.3) mg/dL AST (14-36) IU/L ALT (<35) IU/L Alkaline Phosphatase (38-126) U/L Total Protein (6.3-8.2) g/dL Albumin (3.5-5.0) g/dL Globulin (1.7-4.1) g/dL Albumin/Globulin Ratio (1.0-2.8) Lipase (23-300) U/L Urine RBC 1-5/hpf (0-5/HPF) Urine WBC 0-1/hpf (0-5/HPF) Ur Squamous Epith Cells 0-1 /hpf (0-5/HPF) Urine Bacteria Occasional (0-1) (None) Ur Culture Indicated? Cult not indicated Point of care testing: Urine Dip Bedside Urine Glucose Negative Bedside Urine Bilirubin - Negative Bedside Urine Ketone - Negative Urine Specific [place] 1.010 Bedside Urine Occult Blood ++ Bedside Urine pH 6.5 Bedside Urine Protein - Negative Bedside Urine Urobilinogen - Negative Bedside Urine Nitrite - Negative Bedside Urine Leukocytes - Negative Esterase MDM Narrative Medical decision making narrative: CC: 67-year-old female with lower abdominal pain and foul-smelling bowel movements for the past few weeks. She states it feels quite similar to prior diverticulitis Complicating co-morbidities: Prior surgical abdomen, diverticulitis, age Data collected from: Patient Medical records reviewed: Prior notes reviewed in our EMR Differential considered, but not limited to: Diverticulitis versus urine infection versus bowel perforation versus other Exam documented above, pertinent findings include: Heart rate regular, lungs c lear, abdomen soft but tender across the mid abdomen, no rebound, bowel sounds present Lab Test results independently reviewed as above. Pertinent findings: No leukocytosis or left shift, no signs of anemia, electrolytes and renal function within normal Independently reviewed EKG as above Imaging studies independently reviewed: CT of the abdomen and pelvis with IV contrast demonstrates diverticulitis of the transverse colon without evidence of perforation or abscess Discussion: Patient with reassuring history and physical exam, signs and symptoms reminiscent of prior episodes of diverticulitis. She shows no signs of sepsis, labs are extremely reassuring and CT demonstrates diverticulitis in the absence of perforation or abscess. Pain is well controlled, she is tolerating orals and appropriate for discharge. Antibiotics sent to her pharmacy of choice, questions answered to her apparent satisfaction Disposition: see below, along with detailed discharge instructions that have b marlyn reviewed with patient as well as indications for ED re-evaluation and additional outpatient follow up Discharge Plan Departure Patient Disposition: Home Clinical Impression: Diverticulitis Instructions: DI for Diverticulitis Activity Restrictions/Additional Instructions: *You have been diagnosed with [abdominal pain due to diverticulitis] * *Please continue to take your regular medications as directed. [x ] New medication prescriptions sent to your pharmacy: [[facility] [place] ] *Please follow up with your primary care provider in 2-3 days, call for an appointment. Let them know you were seen in the Emergency Department and that we ask that you be seen in follow up. We will electronically transmit a record of today's note if your PCP is in our system *Please consider a clear liquid diet for the next 24-48 hours and then slowly advance to regular as tolerated. Also, try to avoid alcohol, nicotine, caffeine, spicy, acidic or fatty foods as this may worsen your symptoms *If you do not have a primary care provider please contact the [facility] Resource line at [phone]. They will ask some questions about your medical history and help get you set up with a doctor in the community. *Return to Emergency Department if you should have any new, worsening or concerning symptoms, such as [fever greater than 101 F, shaking chills, worsen ing pain, persistent vomiting or other bothersome symptoms] Prescriptions: New amoxicillin-pot clavulanate 875-125 mg tablet 1 tab PO BID Qty: 20 0RF ondansetron 4 mg tablet,disintegrating 4 mg PO TID-QID PRN (Reason: nausea and vomiting) Qty: 10 0RF No Action amitriptyline 10 mg tablet 5 mg PO BEDTIME Qty: 45 1RF pravastatin 20 mg tablet See Rx Instructions .ROUTE .COMPLEX Qty: 90 3RF Hold Instructions: has lost weight Dose Instruction: TAKE 1 TABLET AT BEDTIME Rx Instructions: TAKE 1 TABLET AT BEDTIME estradiol 10 mcg tablet 10 mcg vaginal 3XW Qty: 36 3RF Rx Instructions: [facility] pharmacy. Simponi 100 mg/mL pen injector 200 mg SUBCUT ONCE leucovorin calcium 5 mg tablet 10 mg PO .COMPLEX Rx Instructions: 10 mg PO 12-14 hours after methotrexate; Tirosint 50 mcg capsule 50 mcg PO DAILY Qty: 90 3RF acetaminophen [Tylenol Extra Strength] 500 mg tablet 500 mg PO Q4H PRN hydrocortisone acetate [Anusol-HC] 25 mg suppository 25 mg MN BEDTIME PRN (Reason: hemorrhoids) Qty: 12 0RF methotrexate sodium (PF) 25 mg/mL solution 0.4 ml subcut QWEEK Patient Comments: monday or Monday cholecalciferol (vitamin D3) [Vitamin D3] 5,000 unit Tablet 5,000 unit PO DAILY Referrals: Alayna Nowak DO [Primary Care Provider] - Stand Alone Forms: Patient Portal/API
[2022-11-14 12:57] VITALS: BP 191/89; PULSE 72; O2SAT 98
[2022-11-14 13:00] VITALS: BP 172/83; PULSE 68; O2SAT 98
[2022-11-14 13:10] LABS: Bacteria Urine Occasional (0-1); Culture Indicated Urine Cult Not Indicated; RBC Urine 1-5/HPF (0-5/HPF); Squamous Epithelial Cell Urine 0-1 /HPF (0-5/HPF); WBC Urine 0-1/HPF (0-5/HPF)
--- NOTE | 2022-11-14 13:17 | DI.CT.S_ITS ---
PROCEDURE: CT ABDOMEN PELVIS W CON INDICATIONS: severe abdominal pain TECHNIQUE: After the administration of intravenous contrast, axial sections acquired from the lung bases to the pubic symphysis. Coronal and sagittal reformats were performed. For radiation dose reduction, the following was used: automated exposure control, adjustment of mA and/or kV according to patient size. COMPARISON: [facility], CT, CT ABDOMEN PELVIS W CON, 08/28/2022, 9:37. FINDINGS: Image quality: Excellent. Lung bases: Unremarkable. Heart: No significant findings. ABDOMEN: Liver: Unremarkable. Gallbladder: Unremarkable. Biliary ducts: Unremarkable. Pancreas: Unremarkable. Spleen: Unremarkable. Adrenal Glands: Unremarkable. Kidneys and Ureters: Unremarkable. Stomach and Bowel: Along the transverse colon, there is an enlarged diverticulum with surrounding fat stranding, consistent with diverticulitis. Additional scattered diverticula without associated inflammation. Normal appendix. The remainder of the small bowel and colon is normal in caliber without mural thickening. Anastomotic sutures within the sigmoid colon. Peritoneum: No abnormal intraperitoneal fluid. No free air. Ventral Wall: No hernias. Abdominal Nodes: No retroperitoneal or mesenteric adenopathy by size criteria. Vessels: Aorta and inferior vena cava are normal in size. PELVIS: Pelvic Organs: Status post hysterectomy. Bladder: Decompressed, limiting evaluation. Pelvic Nodes: No enlarged lymph nodes. Miscellaneous: No hernias are seen. Bones: Degenerative changes of the lumbar spine. IMPRESSION: Transverse colon diverticulitis. No free gas or organized fluid collections. Dictated by: Tiburcio Hines M.D. on 11/14/2022 at 13:51 Approved by: Tiburcio Hines M.D. on 11/14/2022 at 13:55
[2022-11-14 13:34] VITALS: PULSE 79; O2SAT 92
[2022-11-14 14:00] VITALS: BP 160/83; PULSE 71; O2SAT 98
== END 2022-11-14 14:41 | disposition home or self-care (01) ==
PROVIDERS: Emergency Provider Emergency Medicine; PCP Family Medicine
DX: K57.92 Diverticulitis of intestine, part unspecified, without perforation or abscess without bleeding (principal); R10.9 Unspecified abdominal pain
CPT/HCPCS: 36415; 74177; 80053; 81003; 81015; 83605; 83690; 85025; 93005; 93010; 99284; Q9967

== ENCOUNTER → 2022-11-18 18:42 | Outpatient (ROUT) | payer MEDICARE, OTHER, SELFPAY ==
[2022-11-21 12:26] LABS: Candida species Negative (Negative); Gardnerella vaginalis Negative (Negative); Trichomoas vaginalis Negative (Negative)
== END ==
PROVIDERS: PCP Family Medicine; Visit Provider Obstetrics & Gynecology
DX: L90.0 Lichen sclerosus et atrophicus (principal); N95.2 Postmenopausal atrophic vaginitis
CPT/HCPCS: 87480; 87510; 87660

== ENCOUNTER 2022-12-03 19:41 | Emergency (ER) | payer MEDICARE, OTHER, SELFPAY ==
--- NOTE | 2022-12-03 19:56 | ED_ITS ---
HPI - General Adult General Chief complaint: Abdominal Pain Stated complaint: lower ab pain/nesbitt/smells/D/cant eat T-2 Time Seen by Provider: 12/03/22 19:52 History of Present Illness HPI narrative: 67-year-old female with history of diverticulitis, interstitial cystitis, pelvic prolapse presents with a chief complaint of watery, discolored and foul-smelling diarrhea for the past few days. She had been seen and evaluated by myself a few weeks ago and diagnosed with diverticulitis and was placed on around of Augmentin. She tolerated that without difficulty and recently followed up with her associate relations specialist who repeated a CT on November 25, this time using oral contrast. There was no worsening of symptoms and actually she had improvement. She states she has building abdominal cramping until the passage of stool. She is not dizzy nor weak or lightheaded. She denies fever or chills. She states that she was talking with a family member who suggested she could have C diff, she presents for evaluation Related Data Home Medications Medication Instructions Recorded Confirmed cholecalciferol (vitamin D3) 125 5,000 unit PO DAILY 03/20/18 11/18/22 mcg (5,000 unit) tablet (Vitamin D3) methotrexate sodium (PF) 25 mg/mL 0.4 ml SUBCUT QWEEK 03/20/18 11/18/22 injection solution golimumab 100 mg/mL subcutaneous 200 mg SUBCUT ONCE 09/13/18 11/18/22 pen injector (Simponi) acetaminophen 500 mg tablet 500 mg PO Q4H PRN 04/30/19 11/18/22 (Tylenol Extra Strength) leucovorin calcium 5 mg tablet 10 mg PO .COMPLEX 06/15/20 11/18/22 Previous Rx's Medication Instructions Recorded Tirosint 50 mcg capsule 50 mcg PO DAILY #90 caps 03/01/21 (levothyroxine) amitriptyline 10 mg tablet 5 mg PO BEDTIME #45 tabs 04/29/21 pravastatin 20 mg tablet See Rx Instructions .Route 05/26/21 .COMPLEX #90 tabs hydrocortisone acetate 25 mg 25 mg VT BEDTIME PRN hemorrhoids 11/01/22 rectal suppository (Anusol-HC) #12 ea amoxicillin 875 mg-potassium 1 tab PO BID #20 tabs 11/14/22 clavulanate 125 mg tablet ondansetron 4 mg disintegrating 4 mg PO TID-QID PRN nausea and 11/14/22 tablet vomiting #10 tabs estradiol 10 mcg vaginal tablet 10 mcg vaginal 3XW #38 tabs 11/18/22 fluconazole 150 mg tablet 150 mg PO ONCE #1 tab 11/18/22 (Diflucan) Allergies Allergy/AdvReac Type Severity Reaction Status Date / Time sulfamethoxazole Allergy Mild RASH Verified 11/28/22 09:29 nitrofurantoin AdvReac Severe Dizziness Verified 11/28/22 09:29 [From Macrodantin] cefuroxime [From CEFTIN] AdvReac Mild GI upset Verified 11/28/22 09:29 ciprofloxacin [CIPROFLOXACIN] AdvReac Mild swollen Verified 11/28/22 09:29 tendons doxycycline [DOXYCYCLINE] AdvReac Mild severe Verified 11/28/22 09:29 gastritis trimethoprim [From Septra] AdvReac rash Verified 11/28/22 09:29 Review of Systems Review of Systems Narrative: GENERAL: Denies chills, fatigue, malaise, fever, sweats. HEENT: Denies sinus pain, ear pain, sore throat, difficulty swallowing, dizziness. RESPIRATORY: Denies dyspnea, cough, wheezing, hemoptysis, sputum. CARDIOVASCULAR: Denies chest pain, palpitations, orthopnea, edema, GASTROINTESTINAL: See HPI : Denies dysuria, frequency, incontinence, hematuria, urinary retention. MUSCULOSKELETAL: denies weakness, joint pain, or bony pain SKIN: Denies rash, skin lesions, or other NEUROLOGIC: Denies weakness, headache, numbness, change in speech, confusion, seizures, incoordination. PSYCHIATRIC: No concerning psychosocial issues. 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 Diverticular disease (2008) Diverticulitis Essential hypertension Fibromyalgia (1985) GERD (gastroesophageal reflux disease) (2008) Hematuria (1985) Hemorrhoids (2016) Hyperlipidemia IBS (irritable bowel syndrome) (2016) Measles Mumps Mural thickening of sigmoid colon Obesity Osteoarthritis (1995) Osteoarthritis of knees, bilateral Osteopenia (2009) Osteoporosis Reflux esophagitis Rheumatoid arthritis (~1998) Thyroid nodule (2013) Tinnitus (2015) Uterine cancer (04/2016) Surgical History Anesthesia complication S/P partial colectomy Status post colonoscopy (04/2016) Status post endoscopy (04/2016) Status post hysterectomy (04/2016) Status post knee surgery (04/2015) Status post tubal ligation (1986) Family History Brother Age: 65 Multiple sclerosis Brother Age: 49 IBS (irritable bowel syndrome) Father Age: 89 Alzheimer's disease Mother Age: 89 Breast cancer Heart disease Hypertension High cholesterol Dementia Congestive heart failure Sister Age: 63 Sjogren's syndrome Grandfather No problems noted. Grandmother No problems noted. Grandfather No problems noted. Grandmother No problems noted. Social History marital status: household members: spouse pets and animals: Yes education level: college [employer]: [employer] other: walking,hiking,singing,painting,drawing,knitting seatbelt use: always helmet use: Yes water heater temp set < 120 deg: Yes working smoke detector in home: Yes fire extinguisher in home: Yes carbon monox detector in home: Yes firearms in home: No Smoking Status: Never smoker alcohol intake: never substance use type: does not use during the past year weight has: decreased > 10 lbs well-balanced diet: daily or most days daily servings fruits/ve-1 caffeine: Yes eating out: rarely or never Smoking Status: Never smoker alcohol intake frequency: 0-2 drinks per day Substance Use Type: does not use Exam Narrative Exam Narrative: GENERAL: [67] year old patient appears stated age. Well-developed patient, in mild distress. HEAD: Atraumatic. Normocephalic. EYES: Pupils equal round and reactive. Extraocular motions intact. No scleral icterus. No injection or drainage. ENT: Nose without bleeding, purulent drainage. Throat without erythema, tonsillar hypertrophy or exudate. Airway patent. NECK: Trachea midline. Non tender CARDIOVASCULAR: Regular rate and rhythm without murmurs, gallops, or rubs. RESPIRATORY: Clear to auscultation. Breath sounds equal bilaterally. No wheezes, rales, or rhonchi. GASTROINTESTINAL: Abdomen soft, non-tender, nondistended. EXTREMITIES: No edema or joint tenderness. BACK: Nontender without deformity or crepitance. No flank tenderness. NEURO: AOx3. SKIN: No rash or erythema of visible areas Initial Vital Signs Initial Vital Signs: Vital Signs Temperature 98.0 F 12/03/22 20:28 Pulse Rate 72 12/03/22 20:28 Respiratory Rate 17 12/03/22 20:28 Blood Pressure 162/77 H 12/03/22 20:28 Pulse Oximetry 96 12/03/22 20:28 Oxygen Delivery Method Room Air 12/03/22 20:28 Course Orders Ordered: ED Orders 12/03/22 20:34 Urine Microscopic Stat 12/03/22 21:05 Complete Blood Count AUTO DIFF Stat Comprehensive Metabolic Panel Stat Lipase Stat Discontinued Medications Ondansetron HCl (Ondansetron 4 Mg Odt) 4 mg PO NOW PRN PRN Reason: Nausea And Vomiting Ondansetron HCl (Ondansetron 4 Mg/2 Ml Inj) 4 mg IV NOW PRN PRN Reason: Nausea And Vomiting Vital Signs Vital signs: Vital Signs - 8 hr 12/03/22 20:28 Temperature 98.0 F Pulse Rate 72 Respiratory Rate 17 Blood Pressure 162/77 H Pulse Oximetry 96 Oxygen Delivery Method Room Air Medical Decision Making Lab Data 12/03/22 21:05 12/03/22 21:05 Labs: Lab Results 12/03/22 12/03/22 12/03/22 Range/Units 20:34 21:05 21:05 WBC 8.5 (4.5-11.0) X10^3/uL RBC 4.63 (4.0-5.2) X10^6/uL Hgb 13.9 (12.0-16.0) g/dL Hct 42.0 (36-46) % MCV 90.7 (80-100) fL MCH 30.0 (26-34) PG MCHC 33.0 (30-36) % RDW 14.3 (11.6-14.8) % Plt Count 210 (150-400) X10^3/uL Neut % (Auto) 48.7 L (50-75) % Lymph % (Auto) 36.4 (25-40) % [place] % (Auto) 10.9 (3-14) % Eos % (Auto) 2.9 (2-4) % Baso % (Auto) 1.1 (0-2) % Neut # (Auto) 4100 (9936-9270) /uL Lymph # (Auto) 3100 (6592-3107) /uL [place] # (Auto) 900 (0-900) /uL Eos # (Auto) 200 (0-450) /uL Baso # (Auto) 100 (0-100) /uL Sodium 139 (137-145) mmol/L Potassium 3.7 (3.4-5.1) mmol/L Chloride 104 (98-107) mmol/L Carbon Dioxide 26 (22-32) mmol/L BUN 14 (7-17) mg/dL Creatinine 0.83 (0.52-1.04) mg/dL Estimated GFR > 60 (>60) mL/min BUN/Creatinine Ratio 16.9 (6-22) Glucose 110 (80-110) mg/dL Calcium 9.2 (8.4-10.2) mg/dL Total Bilirubin 0.4 (0.2-1.3) mg/dL AST 30 (14-36) IU/L ALT 23 (<35) IU/L Alkaline Phosphatase 82 (38-126) U/L Total Protein 7.9 (6.3-8.2) g/dL Albumin 4.3 (3.5-5.0) g/dL Globulin 3.6 (1.7-4.1) g/dL Albumin/Globulin Ratio 1.2 (1.0-2.8) Lipase 82 (23-300) U/L Urine RBC 0-1/hpf (0-5/HPF) Urine WBC None seen (0-5/HPF) Ur Squamous Epith Cells 1-5 /hpf (0-5/HPF) Urine Bacteria Occasional (0-1) (None) Ur Culture Indicated? Cult not indicated Urine Dip Bedside Urine Glucose Negative Bedside Urine Bilirubin - Negative Bedside Urine Ketone - Negative Urine Specific [place] 1.01 Bedside Urine Occult Blood + Bedside Urine pH 6 Bedside Urine Protein - Negative Bedside Urine Urobilinogen - Negative Bedside Urine Nitrite - Negative Bedside Urine Leukocytes - Negative Esterase Point of care testing: Urine Dip Bedside Urine Glucose Negative Bedside Urine Bilirubin - Negative Bedside Urine Ketone - Negative Urine Specific [place] 1.01 Bedside Urine Occult Blood + Bedside Urine pH 6 Bedside Urine Protein - Negative Bedside Urine Urobilinogen - Negative Bedside Urine Nitrite - Negative Bedside Urine Leukocytes - Negative Esterase MDM Narrative Medical decision making narrative: 67[] year old patient presents with crampy abdominal pain and diarrhea Multiple etiologies for patient's symptoms considered including, but not limited to: [C diff versus diverticulitis versus other] Prior Charts reviewed in our EMR Primary Historian: patient Labs reviewed and interpreted by myself: No leukocytosis or left shift, no signs of, electrolytes within normal limits Imaging reviewed: Discussed the potential repeat imaging but we sure the opinion that she is had multiple CT scans and her symptoms are mild compared to sometimes and not worth imaging at this point Patient's history and physical exam are reassuring. Multiple diagnoses considered as noted above. Patient unable to produce a stool sample here but she is set up with a take-home test and an outpatient order. C diff is considered. Findings and discharge diagnosis discussed with patient/family followed by verbalization of understanding Return precautions discussed with patient/family whom verbalize understanding of diagnosis and plan Discharge Plan Departure Patient Disposition: Home Clinical Impression: Abdominal pain, Diarrhea Instructions: Diarrhea Activity Restrictions/Additional Instructions: *You have been diagnosed with [abdominal pain and diarrhea * *What to do: *Please continue to take your regular medications as directed. *Please follow up with your primary care provider in 2-3 days, call for an appointment. Let them know you were seen in the Emergency Department and that we ask that you be seen in follow up. We will electronically transmit a record of today's note if your PCP is in our system *Please consider a clear liquid diet for the next 24-48 hours and then slowly advance to regular as tolerated. Also, try to avoid alcohol, nicotine, caffeine, spicy, acidic or fatty foods as this may worsen your symptoms *We have sent a sterile container with you to hopefully obtain a stool sample, which you will need to bring back within 24 hours. After obtaining it must immediately go in your fridge unless you are bringing it directly in. *If you do not have a primary care provider please contact the [facility] Resource line at [phone]. They will ask some questions about your medical history and help get you set up with a doctor in the community. *Return to Emergency Department if you should have any new, worsening or concerning symptoms, such as [fever greater than 101 F, shaking chills, worsening pain, persistent vomiting or other bothersome symptoms] Prescriptions: No Action amitriptyline 10 mg tablet 5 mg PO BEDTIME Qty: 45 1RF pravastatin 20 mg tablet See Rx Instructions .ROUTE .COMPLEX Qty: 90 3RF Hold Instructions: has lost weight Dose Instruction: TAKE 1 TABLET AT BEDTIME Rx Instructions: TAKE 1 TABLET AT BEDTIME estradiol 10 mcg tablet 10 mcg vaginal 3XW Qty: 38 3RF Simponi 100 mg/mL pen injector 200 mg SUBCUT ONCE leucovorin calcium 5 mg tablet 10 mg PO .COMPLEX Rx Instructions: 10 mg PO 12-14 hours after methotrexate; Tirosint 50 mcg capsule 50 mcg PO DAILY Qty: 90 3RF fluconazole [Diflucan] 150 mg tablet 150 mg PO ONCE Qty: 1 3RF Rx Instructions: as a single dose acetaminophen [Tylenol Extra Strength] 500 mg tablet 500 mg PO Q4H PRN hydrocortisone acetate [Anusol-HC] 25 mg suppository 25 mg VT BEDTIME PRN (Reason: hemorrhoids) Qty: 12 0RF methotrexate sodium (PF) 25 mg/mL solution 0.4 ml subcut QWEEK Patient Comments: monday or Monday cholecalciferol (vitamin D3) [Vitamin D3] 5,000 unit Tablet 5,000 unit PO DAILY amoxicillin-pot clavulanate 875-125 mg tablet 1 tab PO BID Qty: 20 0RF ondansetron 4 mg tablet,disintegrating 4 mg PO TID-QID PRN (Reason: nausea and vomiting) Qty: 10 0RF Referrals: Alayna Nowak DO [Primary Care Provider] - Stand Alone Forms: Patient Portal/API
[2022-12-03 20:28] VITALS: BP 162/77; PULSE 72; RESP 17; TEMP 36.7; O2SAT 96; BMI 29.2
[2022-12-03 21:23] LABS: Add Manual Diff / Slide Review NO; Basophils Absolute Auto 100 /uL (0-100); Basophils Percent Auto 1.1 % (0-2); Eosinophils Absolute Auto 200 /uL (0-450); Eosinophils Percent Auto 2.9 % (2-4); Hemoglobin 13.9 g/dL (12.0-16.0); Lymphocytes Absolute Auto 3100 /uL (1100-4500); Lymphocytes Percent Auto 36.4 % (25-40); Mean Corpuscular Volume 90.7 fL (80-100); Monocytes Absolute Auto 900 /uL (0-900); Monocytes Percent Auto 10.9 % (3-14); Neutrophils Absolute Auto 4100 /uL (1500-7000); Neutrophils Percent Auto 48.7 % (50-75); Platelet Count 210 X10^3/uL (150-400); Red Blood Cell Count 4.63 X10^6/uL (4.0-5.2); Red Cell Distribution Width 14.3 % (11.6-14.8); White Blood Cell Count 8.5 X10^3/uL (4.5-11.0)
[2022-12-03 21:34] LABS: Bacteria Urine Occasional (0-1); Culture Indicated Urine Cult Not Indicated; RBC Urine 0-1/HPF (0-5/HPF); Squamous Epithelial Cell Urine 1-5 /HPF (0-5/HPF); WBC Urine None Seen (0-5/HPF)
[2022-12-03 21:35] LABS: Alanine Aminotransferase 23 IU/L (<35); Albumin 4.3 g/dL (3.5-5.0); Albumin Globulin Ratio 1.2 (1.0-2.8); Alkaline Phosphatase 82 U/L (38-126); Aspartate Aminotransferase 30 IU/L (14-36); BUN Creatinine Ratio 16.9 (6-22); Bilirubin Total 0.4 mg/dL (0.2-1.3); Blood Urea Nitrogen 14 mg/dL (7-17); Calcium 9.2 mg/dL (8.4-10.2); Carbon Dioxide 26 mmol/L (22-32); Chloride 104 mmol/L (98-107); Estimated Glomerular Filt Rate > 60 mL/min (>60); Globulin 3.6 g/dL (1.7-4.1); Glucose 110 mg/dL (80-110); HEMOLYSIS < 15 (0-50); Lipase 82 U/L (23-300); Potassium 3.7 mmol/L (3.4-5.1); Sodium 139 mmol/L (137-145); Total Protein 7.9 g/dL (6.3-8.2)
[2022-12-04 07:04] LABS: Campylobacter Not Detected (Not Detect); Clostridium difficile toxin AB Not Detected (Not Detect); Plesiomonsa shigelloides Not Detected (Not Detect); Salmonella Not Detected (Not Detect); Vibrio Not Detected (Not Detect); Vibrio cholerae Not Detected (Not Detect)
[2022-12-04 07:05] LABS: Adenovirus F 40/41 Not Detected (Not Detect); Astrovirus Not Detected (Not Detect); Cryptosporidium Not Detected (Not Detect); Cyclospora cayetanensis Not Detected (Not Detect); Entamoeba histolytica Not Detected (Not Detect); Enteroaggregative E.coli Not Detected (Not Detect); Enteropathogenic E.coli Not Detected (Not Detect); Enterotoxigenic E.coli It/st Not Detected (Not Detect); Giardia lamblia Not Detected (Not Detect); Norovirus GI/GII Not Detected (Not Detect); Rotavirus A Not Detected (Not Detect); Sapovirus Not Detected (Not Detect); Shiga-like toxin-prod E.coli Not Detected (Not Detect); Shigella/Enteroinvasive E.coli Not Detected (Not Detect); Yersinia enterocolitica Not Detected (Not Detect)
== END 2022-12-04 00:05 | disposition home or self-care (01) ==
PROVIDERS: Emergency Provider Emergency Medicine; PCP Family Medicine
DX: R10.9 Unspecified abdominal pain (principal); R19.7 Diarrhea, unspecified
CPT/HCPCS: 36415; 80053; 81003; 81015; 83690; 85025; 87507; 99283

== ENCOUNTER → 2022-12-05 15:21 | Outpatient (CLI) | payer MEDICARE, OTHER, SELFPAY ==
--- NOTE | 2022-12-05 | DI.MG.S_ITS ---
BILATERAL DIGITAL SCREENING MAMMOGRAM 3D/2D WITH CAD: 12/05/2022 CLINICAL: Routine screening. Family history of breast cancer. Comparison is made to exams dated: 11/23/2021 mammogram, 04/28/2020 mammogram, and 03/18/2019 mammogram - . There are scattered areas of fibroglandular density in both breasts (category b / 25%-50% glandular tissue). Current study was also evaluated with a Computer Aided Detection (CAD) system. No significant masses, calcifications, or other findings are seen in either breast. There has been no significant interval change. IMPRESSION: NEGATIVE There is no mammographic evidence of malignancy. A 1 year screening mammogram is recommended. Based on the Tyrer Cuzick model (a risk assessment model) the patient's lifetime risk is 10.6% and her 10 year risk is 5.6%. According to the ACR, ACS, and NCCN guidelines, an annual breast MRI exam along with mammogram is recommended if the patient's lifetime risk is 20% or greater. This exam was interpreted at Station ID: [id number]. NOTE: For mammograms, a report in lay terms will be sent to the patient. Approximately 15% of breast malignancies will not be visualized mammographically. In the management of a palpable breast mass, a negative mammogram must not discourage biopsy of a clinically suspicious lesion. Electronically Signed By: Satish hernandez/brian:12/06/2022 16:00:35 copy to: [facility] letter sent: Normal Exam ACR BI-RADS Category 1: Negative 3341F
--- NOTE | 2022-12-12 14:27 | PC.NURSE ---
Request received for referral to [facility] ONC. This RN called and spoke to pt. She states, I was sent to and they are referring me to oncology. I don't need the referral to [facility]. Msg sent to back to Dr. Nowak staff about this.
== END ==
PROVIDERS: PCP Family Medicine; Referring Provider Family Medicine; Visit Provider Family Medicine
DX: Z12.31 Encounter for screening mammogram for malignant neoplasm of breast (principal); Z80.3 Family history of malignant neoplasm of breast
CPT/HCPCS: 77063; 77067

== ENCOUNTER → 2023-03-13 11:55 | Outpatient (CLI) | payer MEDICARE, OTHER, SELFPAY ==
--- NOTE | 2023-03-13 | DI.CT.S_ITS ---
PROCEDURE: CT ABDOMEN PELVIS W CON INDICATIONS: ACUTE DIVERTICULITIS TECHNIQUE: After the administration of oral and intravenous contrast, axial sections were acquired from the lung bases to the pubic symphysis. Coronal and sagittal reformats were performed. For radiation dose reduction, the following was used: automated exposure control, adjustment of mA and/or kV according to patient size. COMPARISON:[facility], CT, CT ABDOMEN PELVIS W CON, 11/14/2022, 13:27. FINDINGS: Image quality: Excellent. Lung bases: Unremarkable. Heart: No significant findings. ABDOMEN: Liver: No solid mass. Gallbladder: No radiopaque gallstones or wall thickening. Biliary ducts: No biliary dilation. Pancreas: No ductal dilation. Spleen: Size is within normal limits. Adrenal Glands: No adrenal nodules. Kidneys and Ureters: No hydronephrosis. No solid mass. No complex renal cystic lesion which requires follow up. Stomach and Bowel: Normal colonic caliber, without significant wall thickening. Peritoneum: No abnormal intraperitoneal fluid. No free air. Ventral Wall: No hernia. Abdominal Nodes: No retroperitoneal or mesenteric adenopathy by size criteria. Vessels: Aorta and inferior vena cava are normal in size. PELVIS: Pelvic Organs: Unremarkable. Bladder: Unremarkable. Pelvic Nodes: No enlarged lymph nodes. Miscellaneous: No inguinal hernias are seen. Bones: Unremarkable. IMPRESSION: 1. No acute abdominal or pelvic abnormality. 2. Diverticulosis in the sigmoid colon. No acute diverticulitis. Dictated by: Arthur De León M.D. on 03/13/2023 at 12:30 Approved by: Arthur De León M.D. on 03/13/2023 at 12:36
== END ==
PROVIDERS: PCP Family Medicine; Referring Provider Internal Medicine Gastroenterology; Visit Provider Internal Medicine Gastroenterology
DX: K57.30 Diverticulosis of large intestine without perforation or abscess without bleeding (principal)
CPT/HCPCS: 74177; Q9967

== ENCOUNTER → 2023-03-14 09:32 | Outpatient (CLI) | payer MEDICARE, OTHER, SELFPAY ==
[2023-03-14 11:32] LABS: Add Manual Diff / Slide Review NO; Basophils Absolute Auto 100 /uL (0-100); Basophils Percent Auto 0.8 % (0-2); Eosinophils Absolute Auto 300 /uL (0-450); Eosinophils Percent Auto 3.1 % (2-4); Hematocrit 42.7 % (36-46); Hemoglobin 14.2 g/dL (12.0-16.0); Lymphocytes Absolute Auto 2900 /uL (1100-4500); Lymphocytes Percent Auto 35.4 % (25-40); Mean Corpuscular HGB Conc 33.2 % (30-36); Mean Corpuscular Hemoglobin 30.6 PG (26-34); Mean Corpuscular Volume 92.3 fL (80-100); Monocytes Absolute Auto 600 /uL (0-900); Monocytes Percent Auto 7.5 % (3-14); Neutrophils Absolute Auto 4400 /uL (1500-7000); Neutrophils Percent Auto 53.2 % (50-75); Platelet Count 242 X10^3/uL (150-400); Red Blood Cell Count 4.63 X10^6/uL (4.0-5.2); Red Cell Distribution Width 14.3 % (11.6-14.8); White Blood Cell Count 8.2 X10^3/uL (4.5-11.0)
[2023-03-14 11:47] LABS: Alanine Aminotransferase 26 IU/L (<35); Albumin 4.6 g/dL (3.5-5.0); Albumin Globulin Ratio 1.3 (1.0-2.8); Alkaline Phosphatase 78 U/L (38-126); Aspartate Aminotransferase 28 IU/L (14-36); BUN Creatinine Ratio 25.9 (6-22); Bilirubin Total 0.5 mg/dL (0.2-1.3); Blood Urea Nitrogen 21 mg/dL (7-17); Carbon Dioxide 29 mmol/L (22-32); Chloride 101 mmol/L (98-107); Estimated Glomerular Filt Rate > 60 mL/min (>60); Globulin 3.5 g/dL (1.7-4.1); Glucose 104 mg/dL (80-110); HEMOLYSIS < 15 (0-50); Potassium 4.2 mmol/L (3.4-5.1); Sodium 137 mmol/L (137-145); Total Protein 8.1 g/dL (6.3-8.2)
[2023-03-14 11:52] LABS: High Sensitivity CRP - Cardiac 1.4 mg/L (1.0-3.0)
[2023-03-14 13:17] LABS: Erythrocyte Sedimentation Rate 7 MM/HR (0-20)
[2023-03-14 13:29] LABS: Appearance Urine UA CLEAR; Bilirubin Urine UA NEGATIVE (NEGATIVE); Color Urine UA YELLOW; Glucose Urine UA NEGATIVE (Negative); Ketones Urine UA NEGATIVE (NEGATIVE); Leukocyte Esterase Urine UA NEGATIVE (NEGATIVE); Nitrite Urine UA NEGATIVE (Negative); Occult Blood Urine UA 1+ (Negative); Protein Urine UA NEGATIVE (Negative); Urobilinogen Urine UA 0.2 E.U./dL (0.2)
[2023-03-14 13:36] LABS: pH Urine UA 5.5 (4.5-8.0)
[2023-03-14 13:38] LABS: Bacteria Urine None Seen; Calcium Oxalate Crystals Urine Few; Culture Indicated Urine Cult Not Indicated; RBC Urine None Seen (0-5/HPF); Squamous Epithelial Cell Urine 0-1 /HPF (0-5/HPF); WBC Urine None Seen (0-5/HPF)
== END ==
PROVIDERS: PCP Family Medicine; Referring Provider Family Medicine; Visit Provider Family Medicine
DX: E72.12 Methylenetetrahydrofolate reductase deficiency (principal); R74.8 Abnormal levels of other serum enzymes; M05.9 Rheumatoid arthritis with rheumatoid factor, unspecified; E55.9 Vitamin D deficiency, unspecified; I10 Essential (primary) hypertension; E78.2 Mixed hyperlipidemia; R30.0 Dysuria
CPT/HCPCS: 36415; 80053; 81001; 85025; 85651; 86140

== ENCOUNTER → 2023-03-17 09:39 | Outpatient (CLI) | payer MEDICARE, OTHER, SELFPAY ==
[2023-03-17 10:36] LABS: Appearance Urine UA CLEAR; Bilirubin Urine UA NEGATIVE (NEGATIVE); Color Urine UA YELLOW; Glucose Urine UA NEGATIVE (Negative); Ketones Urine UA NEGATIVE (NEGATIVE); Leukocyte Esterase Urine UA NEGATIVE (NEGATIVE); Nitrite Urine UA NEGATIVE (Negative); Occult Blood Urine UA 1+ (Negative); Protein Urine UA NEGATIVE (Negative); Urobilinogen Urine UA 0.2 E.U./dL (0.2)
[2023-03-17 10:38] LABS: pH Urine UA 5.5 (4.5-8.0)
[2023-03-17 10:55] LABS: Bacteria Urine None Seen; Culture Indicated Urine Cult Not Indicated; RBC Urine 0-1/HPF (0-5/HPF); Squamous Epithelial Cell Urine 0-1 /HPF (0-5/HPF); WBC Urine None Seen (0-5/HPF)
[2023-03-20 11:24] LABS: Candida species Negative (Negative); Gardnerella vaginalis Negative (Negative); Trichomoas vaginalis Negative (Negative)
== END ==
PROVIDERS: Obstetrics & Gynecology; PCP Family Medicine; Referring Provider Family Medicine; Visit Provider Family Medicine
DX: N89.8 Other specified noninflammatory disorders of vagina (principal); R35.0 Frequency of micturition; R82.998 Other abnormal findings in urine
CPT/HCPCS: 81001; 87480; 87510; 87660

== ENCOUNTER → 2023-05-29 08:03 | Outpatient (CLI) | payer MEDICARE, OTHER, SELFPAY ==
[2023-05-29 10:14] LABS: Free T3, Triiodothyronine Free 3.77 pg/mL (2.77-5.27); Free T4, Direct Thyroxine 1.27 ng/dL (0.78-2.19)
[2023-05-29 10:27] LABS: Thyroid Stimulating Hormone 1.35 uIU/mL (0.47-4.68)
[2023-05-30 06:36] LABS: Thyroid Peroxidase Antibodies <9 IU/mL (0-34)
== END ==
PROVIDERS: PCP Family Medicine; Referring Provider Specialist; Visit Provider Specialist
DX: E03.9 Hypothyroidism, unspecified (principal)
CPT/HCPCS: 36415; 84439; 84443; 84481; 84482; 86376

== ENCOUNTER → 2023-08-17 14:15 | Outpatient (CLI) | payer MEDICARE, OTHER, SELFPAY | PROVIDERS: PCP Family Medicine; Visit Provider Physician Assistant Medical | DX: N89.8 Other specified noninflammatory disorders of vagina (principal); M06.9 Rheumatoid arthritis, unspecified; R30.0 Dysuria | CPT/HCPCS: 87070; 87086; 87205 ==

== ENCOUNTER → 2023-08-17 14:57 | Outpatient (CLI) | payer MEDICARE, OTHER, SELFPAY ==
[2023-08-17 15:26] LABS: Add Manual Diff / Slide Review NO; Basophils Absolute Auto 100 /uL (0-100); Eosinophils Absolute Auto 200 /uL (0-450); Hematocrit 41.5 % (36-46); Hemoglobin 13.7 g/dL (12.0-16.0); Lymphocytes Absolute Auto 2900 /uL (1100-4500); Lymphocytes Percent Auto 35.6 % (25-40); Mean Corpuscular HGB Conc 33.1 % (30-36); Mean Corpuscular Hemoglobin 30.5 PG (26-34); Mean Corpuscular Volume 92.1 fL (80-100); Monocytes Absolute Auto 600 /uL (0-900); Monocytes Percent Auto 7.4 % (3-14); Neutrophils Absolute Auto 4400 /uL (1500-7000); Platelet Count 221 X10^3/uL (150-400); Red Blood Cell Count 4.51 X10^6/uL (4.0-5.2); Red Cell Distribution Width 14.6 % (11.6-14.8); White Blood Cell Count 8.1 X10^3/uL (4.5-11.0)
[2023-08-17 16:22] LABS: Alanine Aminotransferase 27 IU/L (<35); Albumin 4.5 g/dL (3.5-5.0); Albumin Globulin Ratio 1.5 (1.0-2.8); Alkaline Phosphatase 86 U/L (38-126); Aspartate Aminotransferase 30 IU/L (14-36); BUN Creatinine Ratio 24.3 (6-22); Bilirubin Total 0.6 mg/dL (0.2-1.3); Blood Urea Nitrogen 18 mg/dL (7-17); Calcium 9.2 mg/dL (8.4-10.2); Carbon Dioxide 29 mmol/L (22-32); Chloride 107 mmol/L (98-107); Estimated Glomerular Filt Rate > 60 mL/min (>60); Glucose 91 mg/dL (80-110); HEMOLYSIS < 15 (0-50); Potassium 4.3 mmol/L (3.4-5.1); Sodium 139 mmol/L (137-145); Total Protein 7.5 g/dL (6.3-8.2)
== END ==
PROVIDERS: PCP Family Medicine; Referring Provider Physician Assistant Medical; Visit Provider Physician Assistant Medical
DX: M06.9 Rheumatoid arthritis, unspecified (principal); N89.8 Other specified noninflammatory disorders of vagina; R30.0 Dysuria
CPT/HCPCS: 36415; 80053; 85025; 87070; 87086; 87205

== ENCOUNTER → 2023-09-19 18:39 | Outpatient (CLI) | payer MEDICARE, OTHER, SELFPAY ==
--- NOTE | 2023-09-19 18:42 | DI.MRI.S_ITS ---
PROCEDURE: MR LUMBAR SPINE WO CON INDICATIONS: Bilateral hip pain L4-5 spondylolisthesis TECHNIQUE: Noncontrast sagittal T1 spin echo and T2 fast echo, sagittal STIR, and T2 fast spin echo through the lumbar spine. In cases with scoliosis, additional coronal T2 fast spin echo may be performed. COMPARISON: [facility], CR, XR LUMBAR SPINE WITH FLEXION EXTENSION 5 VIEWS, 06/26/2023, 13:30. FINDINGS: Image quality: Excellent. Alignment and Curvature: 5 lumbar type vertebral bodies are present with rudimentary ribs at T12. There is 3 mm of anterolisthesis of L4 on L5. Bone Marrow: Marrow is of normal overall signal. No acute vertebral body compression fractures. Mild reactive signal throughout the endplates of the lumbar and lower thoracic spine. Spinal Cord: Conus medullaris terminates at the upper L2 level. Visualized cord demonstrates normal signal and size. Paraspinous Soft Tissues: No paravertebral masses. T12-L1: Mild disc desiccation. No significant canal nor foraminal stenosis. L1-L2: Mild facet hypertrophy. No significant canal nor foraminal stenosis. L2-L3: Mild disc desiccation and diffuse disc bulge. Mild facet and ligamentum flavum hypertrophy. Mild epidural lipomatosis. Mild canal stenosis. Mild bilateral foraminal stenosis. L3-L4: Mild disc desiccation and diffuse disc bulge. Mild facet and ligamentum flavum hypertrophy. Mild epidural lipomatosis. Mild canal stenosis. Mild bilateral foraminal stenosis. L4-L5: Mild disc desiccation and diffuse disc bulge. Moderate bilateral facet hypertrophy. Mild ligamentum flavum hypertrophy. Moderate canal stenosis. Mild subarticular foraminal stenosis bilaterally L5-S1: Mild disc desiccation and diffuse disc bulge. Mild bilateral facet hypertrophy. No significant canal nor foraminal stenosis. IMPRESSION: 1. Multilevel degenerative disc and facet disease, as well as ligamentum flavum hypertrophy and epidural lipomatosis. 2. Multilevel canal stenoses, worst at L4-L5 where there is moderate canal stenosis. 3. Mild multilevel foraminal stenoses. Dictated by: Berry Michelle M.D. on 09/20/2023 at 9:13 Approved by: Berry Michelle M.D. on 09/20/2023 at 9:41
== END ==
PROVIDERS: PCP Family Medicine; Referring Provider Physical Medicine & Rehabilitation; Visit Provider Physical Medicine & Rehabilitation
DX: M51.36 Other intervertebral disc degeneration, lumbar region (principal); M51.37 Other intervertebral disc degeneration, lumbosacral region; M48.061 Spinal stenosis, lumbar region without neurogenic claudication; M47.816 Spondylosis without myelopathy or radiculopathy, lumbar region; M47.817 Spondylosis without myelopathy or radiculopathy, lumbosacral region; M43.16 Spondylolisthesis, lumbar region
CPT/HCPCS: 72148

== ENCOUNTER → 2023-10-28 08:43 | Outpatient (CLI) | payer MEDICARE, OTHER, SELFPAY ==
--- NOTE | 2023-10-28 08:45 | DI.MRI.S_ITS ---
PROCEDURE: MR KNEE LT WO CON INDICATIONS: rule out meniscal injury causing instability TECHNIQUE: Noncontrast sagittal PD fast spin echo and T2 fast spin echo with fat saturation, sagittal 3-D FLASH with fat saturation; coronal T1 spin echo and PD fast spin echo with fat saturation, and axial PD fast spin echo with fat saturation through the knee. COMPARISON: [facility], CR, XR KNEE 4+ VIEWS BILATERAL, 06/29/2023, 14:12. [facility], MR, KNEE WITHOUT CONTRAST, 02/16/2016, 16:28. FINDINGS: Image quality: Excellent. Anterior cruciate ligament: Intact. Posterior cruciate ligament: Intact. Medial collateral ligament: Intact. Lateral collateral ligament: Thickening of the proximal lateral collateral ligament is consistent with a prior grade 1-2 sprain. Medial meniscus: Small horizontal oblique tear at the junction of posterior horn and body of the medial meniscus extending to the outer third of the tibial articular surface. Lateral meniscus: There is horizontal oblique tearing of the lateral meniscus involving the body and extending to the anterior and posterior horns extending to the middle third of the femoral articular surface. Medial and lateral tendons: The semimembranosus tendon insertions appear intact. Visualized portions of the pes anserinus tendons appear normal. The popliteus tendon is intact. Iliotibial band appears normal. Anterior structures: The quadriceps and patellar tendons appear intact. No patellar subluxation. No femoral trochlear dysplasia or ventral trochlear prominence. No edema in the infrapatellar fat pad. Bones and cartilage: No bone marrow contusions or fractures. Medial femorotibial cartilage: Mild partial-thickness cartilage thinning and irregularity in the weight-bearing portion of the medial femorotibial compartment. Lateral femorotibial cartilage: There is high-grade partial cartilage irregularity in the central weight-bearing portion of the lateral tibial plateau with mild subchondral cystic changes. Patellofemoral cartilage: Mild partial-thickness cartilage irregularity in the patellofemoral compartment. Subchondral edema is seen at the median ridge and lateral facet of the patella. Soft tissues: Small joint effusion is present. No medial popliteal cyst. The musculature surrounding the knee is normal in bulk. IMPRESSION: 1. Horizontal oblique tearing at the body of the lateral meniscus and involving the anterior and posterior horns extending to the middle third of the femoral articular surface. 2. Small resent oblique tear at the junction of the posterior horn and body of the medial meniscus extending to the outer third of the tibial articular surface. 3. Remote prior grade 1-2 sprain of the proximal lateral collateral ligament. 4. Focal grade 3 chondromalacia in the weight-bearing portion of the lateral femorotibial compartment with mild subchondral cystic changes. There is grade 2 chondromalacia in the medial and anterior compartments. 5. Small joint effusion. Approved by: Kalin Marie M.D. on 10/30/2023 at 12:08
--- NOTE | 2023-10-28 08:45 | DI.MRI.S_ITS ---
PROCEDURE: MRFOOT LT WO CON INDICATIONS: rule out neuroma. TECHNIQUE: Multiphasic, multisequence MRI of the forefoot was performed, without intravenous contrast administration. COMPARISON: None. FINDINGS: Image quality: Excellent. Bones and joints: No bone marrow contusions or metatarsal stress fractures. No intraosseous lesions. Chronic osseous erosions or chronic cystic changes in the 5th metatarsal head. Moderate degenerative changes at 1st metatarsophalangeal joint with subchondral cystic changes and small marginal osteophytes. Scattered degenerative changes are seen at the interphalangeal joints of the toest, most notably at the 1st interphalangeal joint. Subchondral edema and cystic changes are seen at the 2nd and 3rd tarsometatarsal joints. Degenerative changes also seen at the calcaneocuboid joint Soft tissues: Intermediate signal intensity lesion is seen in the interspace between the 2nd and 3rd metatarsal heads measuring approximately 9 x 9 x 4 mm suspicious for perineural fibrosis. The visualized plantar foot muscles demonstrate normal signal and bulk. Visualized flexor and extensor tendons appear intact, without tenosynovitis. The distal insertions of the peroneus brevis and longus tendons appear intact. The principal Lisfranc ligament appears intact. Sagittal images demonstrate no evidence for plantar plate tears. IMPRESSION: 1. Intermediate signal intensity lesion in the interspace between the 2nd and 3rd metatarsal heads measuring up to 9 mm is suspicious for an interdigital Lam neuroma. 2. Scattered degenerative changes most prominent at the 1st metatarsophalangeal and 1st interphalangeal joints, 2nd and 3rd tarsometatarsal joints, and calcaneocuboid joint. Approved by: Kalin Marie M.D. on 10/30/2023 at 12:15
== END ==
LOC: MRI 08:44
PROVIDERS: PCP Family Medicine; Referring Provider Family Medicine; Visit Provider Family Medicine
DX: M25.362 Other instability, left knee (principal); G57.62 Lesion of plantar nerve, left lower limb; S83.282A Other tear of lateral meniscus, current injury, left knee, initial encounter; S83.242A Other tear of medial meniscus, current injury, left knee, initial encounter; S83.422A Sprain of lateral collateral ligament of left knee, initial encounter; M94.262 Chondromalacia, left knee; M25.462 Effusion, left knee
CPT/HCPCS: 73718; 73721

== ENCOUNTER → 2023-12-08 11:32 | Outpatient (CLI) | payer MEDICARE, OTHER, SELFPAY ==
--- NOTE | 2023-12-08 | DI.MG.S_ITS ---
BILATERAL DIGITAL SCREENING MAMMOGRAM 3D/2D WITH CAD: 12/08/2023 CLINICAL: Routine screening. Family history of breast cancer. Comparison is made to exams dated: 12/05/2022 mammogram, 11/23/2021 mammogram, and 04/28/2020 mammogram - [facility]. There are scattered areas of fibroglandular density in both breasts (category b / 25%-50% glandular tissue). Current study was also evaluated with a Computer Aided Detection (CAD) system. No significant masses, calcifications, or other findings are seen in either breast. There has been no significant interval change. IMPRESSION: NEGATIVE There is no mammographic evidence of malignancy. A 1 year screening mammogram is recommended. Based on the Tyrer Cuzick model (a risk assessment model) the patient's lifetime risk is 10.0% and her 10 year risk is 5.6%. According to the ACR, ACS, and NCCN guidelines, an annual breast MRI exam along with mammogram is recommended if the patient's lifetime risk is 20% or greater. This exam was interpreted at Station ID: [id number]. NOTE: For mammograms, a report in lay terms will be sent to the patient. Approximately 15% of breast malignancies will not be visualized mammographically. In the management of a palpable breast mass, a negative mammogram must not discourage biopsy of a clinically suspicious lesion. Electronically Signed By: Satish hernandez/brian:12/08/2023 13:41:39 copy to: [facility] letter sent: Normal Exam ACR BI-RADS Category 1: Negative [id number]
== END ==
LOC: MAMMO 11:32
PROVIDERS: PCP Family Medicine; Referring Provider Family Medicine; Visit Provider Family Medicine
DX: Z12.31 Encounter for screening mammogram for malignant neoplasm of breast (principal); Z80.3 Family history of malignant neoplasm of breast; R92.323 Mammographic fibroglandular density, bilateral breasts
CPT/HCPCS: 77063; 77067

== ENCOUNTER → 2024-01-15 12:13 | Outpatient (CLI) | payer MEDICARE, OTHER, SELFPAY | PROVIDERS: PCP Family Medicine; Visit Provider Physician Assistant | DX: R31.9 Hematuria, unspecified (principal) | CPT/HCPCS: 87086 ==

== ENCOUNTER → 2024-01-15 13:30 | Outpatient (CLI) | payer MEDICARE, OTHER, SELFPAY ==
[2024-01-15 15:12] LABS: Add Manual Diff / Slide Review NO; Basophils Absolute Auto 100 /uL (0-100); Basophils Percent Auto 0.7 % (0-2); Eosinophils Absolute Auto 200 /uL (0-450); Eosinophils Percent Auto 2.7 % (2-4); Hematocrit 42.3 % (36-46); Lymphocytes Absolute Auto 2700 /uL (1100-4500); Lymphocytes Percent Auto 32.2 % (25-40); Mean Corpuscular HGB Conc 33.1 % (30-36); Mean Corpuscular Hemoglobin 30.5 PG (26-34); Mean Corpuscular Volume 92.1 fL (80-100); Monocytes Absolute Auto 600 /uL (0-900); Monocytes Percent Auto 7.4 % (3-14); Neutrophils Absolute Auto 4800 /uL (1500-7000); Platelet Count 232 X10^3/uL (150-400); Red Blood Cell Count 4.59 X10^6/uL (4.0-5.2); Red Cell Distribution Width 14.7 % (11.6-14.8); White Blood Cell Count 8.5 X10^3/uL (4.5-11.0)
[2024-01-15 15:43] LABS: Alanine Aminotransferase 23 IU/L (<35); Albumin 4.4 g/dL (3.5-5.0); Albumin Globulin Ratio 1.4 (1.0-2.8); Alkaline Phosphatase 78 U/L (38-126); Aspartate Aminotransferase 31 IU/L (14-36); BUN Creatinine Ratio 34.6 (6-22); Bilirubin Total 0.6 mg/dL (0.2-1.3); Blood Urea Nitrogen 27 mg/dL (7-17); Calcium 9.6 mg/dL (8.4-10.2); Carbon Dioxide 26 mmol/L (22-32); Chloride 104 mmol/L (98-107); Estimated Glomerular Filt Rate > 60 mL/min (>60); Globulin 3.2 g/dL (1.7-4.1); Glucose 98 mg/dL (80-110); HEMOLYSIS < 15 (0-50); Potassium 4.3 mmol/L (3.4-5.1); Sodium 137 mmol/L (137-145); Total Protein 7.6 g/dL (6.3-8.2)
== END ==
PROVIDERS: PCP Family Medicine; Referring Provider Physician Assistant; Visit Provider Physician Assistant
DX: M06.9 Rheumatoid arthritis, unspecified (principal); R31.9 Hematuria, unspecified
CPT/HCPCS: 36415; 80053; 85025; 87086

== ENCOUNTER → 2024-01-26 09:40 | Outpatient (CLI) | payer MEDICARE, OTHER, SELFPAY ==
[2024-01-31 22:08] LABS: Chlamydia trachomatis Negative (Negative); Mycoplasma genitalium Negative (Negative); Neisseria gonorrhoeae Negative (Negative)
== END ==
PROVIDERS: PCP Family Medicine; Visit Provider Specialist
DX: R31.9 Hematuria, unspecified (principal); N89.8 Other specified noninflammatory disorders of vagina; R10.2 Pelvic and perineal pain
CPT/HCPCS: 87086; 87491; 87563; 87591

== ENCOUNTER → 2024-02-14 16:40 | Outpatient (CLI) | payer MEDICARE, OTHER, SELFPAY ==
--- NOTE | 2024-02-14 16:41 | DI.MRI.S_ITS ---
PROCEDURE: MR CERVICAL SPINE WO CON INDICATIONS: cervical stenosis TECHNIQUE: Noncontrast sagittal T1 spin echo and T2 fast spin echo, sagittal STIR, foraminal oblique sagittal T2 fast spin echo, and axial gradient echo or T2 fast spin echo through the cervical spine. COMPARISON: None. FINDINGS: Image quality: Excellent. Alignment and Curvature: There is straightening of the normal cervical lordosis. No focal AP alignment abnormality is seen. Bone Marrow: Marrow demonstrates normal overall signal. Spinal Cord: Visualized spinal cord has normal size and signal. No cerebellar tonsillar herniation. Paraspinous Soft Tissues: No paravertebral masses. Prevertebral soft tissues are normal in thickness. C2-C3: The disc height and disk signal are relatively well-preserved. A mild degree of generalized disc osteophyte complex is seen. There is mild right-sided and moderate left-sided facet hypertrophy. There is [id number] left-sided and no right-sided neural foraminal narrowing. No central canal narrowing is seen. C3-C4: The disc height is well-preserved. Loss of disc signal is seen at this level. A mild degree of generalized disc osteophyte complex is seen. There is mild right-sided and moderate left-sided facet hypertrophy. There is moderate left-sided and no right-sided neural foraminal narrowing. No significant central canal narrowing is seen. C4-C5: Mild loss of disc height is seen. Loss of disc signal is seen. Moderate generalized disc osteophyte complex is seen. There is at least moderate facet hypertrophy. There is at least moderate left-sided and moderate right-sided neural foraminal narrowing. Moderate central canal narrowing is seen, with minimal mass effect upon the ventral spinal cord. C5-C6: The disc height is well-preserved. Loss of disc signal is seen at this level. Mild to moderate disc osteophyte complex is seen. Mild to moderate facet hypertrophy can be seen. There is at least moderate bilateral neural foraminal narrowing seen. Mild to moderate central canal narrowing is seen at this level. C6-C7: Mild loss of disc height is seen. Loss of disc signal is seen. Moderate generalized disc osteophyte complex is seen. There is a central disc osteophyte protrusion. Mild facet joint hypertrophy is seen. Moderate bilateral neural foraminal narrowing is seen. Mild to moderate central canal narrowing is seen this level. C7-T1: Normal appearance. IMPRESSION: Multiple levels of cervical spine degenerative change can be seen, which are worst within the mid cervical spine. Dictated by: Monty Licona M.D. on 02/14/2024 at 17:13 Approved by: Monty Licona M.D. on 02/14/2024 at 17:16
== END ==
PROVIDERS: PCP Family Medicine; Referring Provider Physical Medicine & Rehabilitation; Visit Provider Physical Medicine & Rehabilitation
DX: M48.02 Spinal stenosis, cervical region (principal); M47.812 Spondylosis without myelopathy or radiculopathy, cervical region
CPT/HCPCS: 72141

== ENCOUNTER → 2024-04-26 11:38 | Outpatient (CLI) | payer MEDICARE, OTHER, SELFPAY ==
--- NOTE | 2024-04-26 11:40 | DI.RAD.S_ITS ---
PROCEDURE: XR CERVICAL SPINE 4V OR 5V INDICATIONS: NECK PAIN TECHNIQUE: 5 views of the cervical spine acquired. COMPARISON: [facility], CR, XR CERVICAL SPINE 2 OR 3 VIEWS, 11/26/2021, 15:21. FINDINGS: Bones: No fractures or dislocations to the T1 level. Disc space height loss most pronounced at C5-C6. Small vertebral body osteophytes. Oblique images demonstrate no bony foraminal stenoses. Soft tissues: No prevertebral soft tissue swelling. IMPRESSION: Similar moderate degenerative changes most pronounced at C5-C6. Dictated by: Ned Villar M.D. on 04/26/2024 at 13:43 Approved by: Ned Villar M.D. on 04/26/2024 at 13:45
--- NOTE | 2024-04-26 11:40 | DI.RAD.S_ITS ---
PROCEDURE: XR LUMBAR SPINE MIN 4V INDICATIONS: BACK PAIN TECHNIQUE: 5 views of the lumbar spine were acquired, including bilateral oblique views. COMPARISON: [facility], CT, CT ABDOMEN PELVIS WITH CONTRAST, 07/04/2023, 13:55. FINDINGS: Bones: 5 nonrib-bearing vertebrae are present. Anterolisthesis of L4 on L5 measuring 0.5 cm, unchanged. Mild disc space height loss most pronounced at T11-T12. Small vertebral body osteophytes. No vertebral body compression fractures. No suspicious bony lesions. Soft tissues: Overlying bowel gas pattern is normal. No suspicious soft tissue calcifications. Oblique images: No pars defects. IMPRESSION: Grade 1 anterolisthesis of L4 on L5. Mild degenerative changes. Dictated by: Ned Villar M.D. on 04/26/2024 at 13:46 Approved by: Ned Villar M.D. on 04/26/2024 at 13:48
== END ==
PROVIDERS: PCP Family Medicine; Referring Provider Physical Medicine & Rehabilitation; Visit Provider Physical Medicine & Rehabilitation
DX: M54.2 Cervicalgia (principal); M43.16 Spondylolisthesis, lumbar region; M47.812 Spondylosis without myelopathy or radiculopathy, cervical region; M54.9 Dorsalgia, unspecified
CPT/HCPCS: 72050; 72110

== ENCOUNTER → 2024-05-21 10:17 | Outpatient (CLI) | payer MEDICARE, OTHER, SELFPAY ==
[2024-05-21 12:22] LABS: Appearance Urine UA CLEAR; Bilirubin Urine UA NEGATIVE (NEGATIVE); Color Urine UA YELLOW; Glucose Urine UA NEGATIVE (Negative); Ketones Urine UA NEGATIVE (NEGATIVE); Leukocyte Esterase Urine UA NEGATIVE (NEGATIVE); Nitrite Urine UA NEGATIVE (Negative); Occult Blood Urine UA 2+ (Negative); Protein Urine UA NEGATIVE (Negative); Urobilinogen Urine UA 0.2 E.U./dL (0.2)
[2024-05-21 12:29] LABS: pH Urine UA 5.5 (4.5-8.0)
[2024-05-21 13:16] LABS: Bacteria Urine None Seen; Calcium Oxalate Crystals Urine Moderate; Culture Indicated Urine Cult Not Indicated; RBC Urine 0-1/HPF (0-5/HPF); Squamous Epithelial Cell Urine 0-1 /HPF (0-5/HPF); Urine Volume 10mL (spun); WBC Urine None Seen (0-5/HPF)
== END ==
PROVIDERS: PCP Family Medicine; Visit Provider Family Medicine
DX: R30.0 Dysuria (principal)
CPT/HCPCS: 81001

== ENCOUNTER → 2024-05-24 09:42 | Outpatient (CLI) | payer MEDICARE, OTHER, SELFPAY ==
[2024-05-24 10:32] LABS: Add Manual Diff / Slide Review NO; Basophils Absolute Auto 0 /uL (0-100); Basophils Percent Auto 0.7 % (0-2); Eosinophils Absolute Auto 200 /uL (0-450); Eosinophils Percent Auto 3.4 % (2-4); Hematocrit 44.1 % (36-46); Hemoglobin 14.7 g/dL (12.0-16.0); Lymphocytes Absolute Auto 3200 /uL (1100-4500); Lymphocytes Percent Auto 49.4 % (25-40); Mean Corpuscular HGB Conc 33.2 % (30-36); Mean Corpuscular Hemoglobin 30.5 PG (26-34); Monocytes Absolute Auto 500 /uL (0-900); Monocytes Percent Auto 7.6 % (3-14); Neutrophils Absolute Auto 2500 /uL (1500-7000); Neutrophils Percent Auto 38.9 % (50-75); Platelet Count 240 X10^3/uL (150-400); Red Cell Distribution Width 14.5 % (11.6-14.8); White Blood Cell Count 6.5 X10^3/uL (4.5-11.0)
[2024-05-24 11:01] LABS: Alanine Aminotransferase 48 IU/L (<35); Albumin 4.9 g/dL (3.5-5.0); Albumin Globulin Ratio 1.7 (1.0-2.8); Alkaline Phosphatase 90 U/L (38-126); Aspartate Aminotransferase 43 IU/L (14-36); Blood Urea Nitrogen 22 mg/dL (7-17); Calcium 9.6 mg/dL (8.4-10.2); Carbon Dioxide 27 mmol/L (22-32); Chloride 105 mmol/L (98-107); Cholesterol 271 mg/dL (140-199); Estimated Glomerular Filt Rate > 60 mL/min (>60); Globulin 2.9 g/dL (1.7-4.1); Glucose 104 mg/dL (80-110); HDL Cholesterol 68 mg/dL (40-60); HEMOLYSIS < 15 (0-50); LDL Cholesterol Calculated 168 mg/dL (<100); Potassium 4.3 mmol/L (3.4-5.1); Sodium 140 mmol/L (137-145); Total Protein 7.8 g/dL (6.3-8.2); Triglycerides 175 mg/dL (35-150)
[2024-05-24 13:29] LABS: Erythrocyte Sedimentation Rate 3 MM/HR (0-20)
[2024-05-25 13:36] LABS: CRP, High Sensitivity 0.26 mg/L (0.00-3.00)
== END ==
LOC: LAB 09:43
PROVIDERS: PCP Family Medicine; Referring Provider Family Medicine; Visit Provider Family Medicine
DX: N30.10 Interstitial cystitis (chronic) without hematuria (principal); E78.5 Hyperlipidemia, unspecified; R10.9 Unspecified abdominal pain
CPT/HCPCS: 36415; 80053; 80061; 85025; 85651; 86140

== ENCOUNTER → 2024-07-03 15:36 | Outpatient (CLI) | payer MEDICARE, OTHER, SELFPAY ==
[2024-07-05 14:36] LABS: Candida species Negative (Negative); Gardnerella vaginalis Negative (Negative); Trichomoas vaginalis Negative (Negative)
== END ==
PROVIDERS: PCP Family Medicine; Visit Provider Obstetrics & Gynecology
DX: N89.8 Other specified noninflammatory disorders of vagina (principal)
CPT/HCPCS: 87480; 87510; 87660

== ENCOUNTER → 2024-08-03 09:13 | Outpatient (CLI) | payer MEDICARE, OTHER, SELFPAY ==
[2024-08-03 09:53] LABS: Add Manual Diff / Slide Review NO; Basophils Absolute Auto 0 /uL (0-100); Basophils Percent Auto 0.9 % (0-2); Eosinophils Absolute Auto 100 /uL (0-450); Eosinophils Percent Auto 2.2 % (2-4); Hematocrit 39.5 % (36-46); Hemoglobin 13.5 g/dL (12.0-16.0); Lymphocytes Absolute Auto 2800 /uL (1100-4500); Mean Corpuscular HGB Conc 34.2 % (30-36); Mean Corpuscular Hemoglobin 31.8 PG (26-34); Monocytes Absolute Auto 400 /uL (0-900); Monocytes Percent Auto 7.8 % (3-14); Neutrophils Absolute Auto 2100 /uL (1500-7000); Neutrophils Percent Auto 38.1 % (50-75); Platelet Count 204 X10^3/uL (150-400); Red Blood Cell Count 4.25 X10^6/uL (4.0-5.2); Red Cell Distribution Width 13.9 % (11.6-14.8); White Blood Cell Count 5.5 X10^3/uL (4.5-11.0)
[2024-08-03 10:09] LABS: Alanine Aminotransferase 32 IU/L (<35); Albumin 4.6 g/dL (3.5-5.0); Albumin Globulin Ratio 1.6 (1.0-2.8); Alkaline Phosphatase 71 U/L (38-126); Aspartate Aminotransferase 36 IU/L (14-36); BUN Creatinine Ratio 21.2 (6-22); Blood Urea Nitrogen 18 mg/dL (7-17); Calcium 9.3 mg/dL (8.4-10.2); Carbon Dioxide 28 mmol/L (22-32); Chloride 105 mmol/L (98-107); Cholesterol 262 mg/dL (140-199); Erythrocyte Sedimentation Rate 5 MM/HR (0-20); Estimated Glomerular Filt Rate > 60 mL/min (>60); Globulin 2.8 g/dL (1.7-4.1); Glucose 97 mg/dL (80-110); HDL Cholesterol 55 mg/dL (40-60); HEMOLYSIS < 15 (0-50); LDL Cholesterol Calculated 162 mg/dL (<100); Potassium 4.2 mmol/L (3.4-5.1); Sodium 140 mmol/L (137-145); Total Protein 7.4 g/dL (6.3-8.2); Triglycerides 223 mg/dL (35-150); Uric Acid 5.1 mg/dL (2.5-6.2)
[2024-08-04 08:07] LABS: CRP, High Sensitivity 0.45 mg/L (0.00-3.00)
== END ==
LOC: LAB 09:14
PROVIDERS: PCP Family Medicine; Referring Provider Family Medicine; Visit Provider Family Medicine
DX: E72.12 Methylenetetrahydrofolate reductase deficiency (principal); R74.8 Abnormal levels of other serum enzymes; M15.9 Polyosteoarthritis, unspecified; E88.810 Metabolic syndrome; M05.9 Rheumatoid arthritis with rheumatoid factor, unspecified; E78.2 Mixed hyperlipidemia; E88.818 Other insulin resistance
CPT/HCPCS: 36415; 80053; 80061; 84550; 85025; 85651; 86140

== ENCOUNTER → 2024-08-12 12:27 | Outpatient (CLI) | payer MEDICARE, OTHER, SELFPAY ==
[2024-08-12 13:24] LABS: Creatine Kinase 368 U/L (30-135)
[2024-08-12 13:26] LABS: Iron 139 ug/dL (37-170)
[2024-08-12 13:43] LABS: Free T3, Triiodothyronine Free 4.33 pg/mL (2.77-5.27)
[2024-08-12 13:57] LABS: TSH w/ Reflex to FT4 1.93 uIU/mL (0.47-4.68)
[2024-08-12 14:00] LABS: Ferritin 59 ng/mL (11-264); Testosterone 7.14 ng/dL (5.71-77.0)
[2024-08-12 15:18] LABS: Vitamin D 25 Hydroxy (D3) 31.1 ng/mL (30.0-100.0)
[2024-08-13 07:09] LABS: Dehydroepiandrosterone Sulfate 5.7 ug/dL (20.4-186.6)
== END ==
PROVIDERS: PCP Family Medicine; Referring Provider Family Medicine; Visit Provider Family Medicine
DX: R74.8 Abnormal levels of other serum enzymes (principal); E03.9 Hypothyroidism, unspecified; E55.9 Vitamin D deficiency, unspecified; M06.9 Rheumatoid arthritis, unspecified; M79.18 Myalgia, other site; G89.4 Chronic pain syndrome; N95.1 Menopausal and female climacteric states
CPT/HCPCS: 36415; 82306; 82550; 82627; 82728; 83540; 84403; 84443; 84481

== ENCOUNTER 2024-08-21 15:23 | Emergency (ER) | payer MEDICARE, OTHER, SELFPAY ==
[2024-08-21] VITALS (16 sets, daily range): BP systolic 165–201; BP diastolic 76–93; PULSE 72–82; RESP 6–25; TEMP 36.6; O2SAT 93–100; BMI 30.7
--- NOTE | 2024-08-21 15:36 | DI.RAD.S_ITS ---
PROCEDURE: XR CHEST 1V INDICATIONS: Chest Pain TECHNIQUE: One view of the chest was acquired. COMPARISON: [facility], CR, XR CHEST 1V, 11/01/2019, 9:15. FINDINGS: Surgical changes and devices: None. Lungs and pleura: Lungs are clear. No pleural effusions or pneumothorax. Mediastinum: Mediastinal contours appear normal. Heart size is normal. Bones and chest wall: No suspicious bony lesions. Overlying soft tissues appear unremarkable. IMPRESSION: No acute cardiopulmonary pathology. Dictated by: Charly Mejia M.D. on 08/21/2024 at 16:32 Approved by: Charly Mejia M.D. on 08/21/2024 at 16:32
--- NOTE | 2024-08-21 15:42 | EKG_ITS ---
[address] [address] Test Date: 2024-08-21 Pat Name: Palmira Bah Department: Room: Gender: Female Facility Security Officer: JEREMY : 1955 Requested By: Order Number: [id number] Reading MD: David Garcia MD Measurements Intervals [place] Rate: 71 P: 58 MI: 176 QRS: -24 QRSD: 88 T: -21 QT: 418 QTc: 454 Interpretive Statements Normal sinus rhythm Minimal voltage criteria for LVH, may be normal variant ( R in aVL ) Nonspecific T wave abnormality Electronically Signed On 08-22-2024 7:23:39 PDT by David Garcia MD
--- NOTE | 2024-08-21 15:51 | ED.GENADULT ---
HPI - General Adult <Kirill Michele MD - Last Filed: 08/22/24 09:39> General Chief complaint: Hypertension Stated complaint: HBP, chest pressure, taking new meds Time Seen by Provider: 08/21/24 15:50 Source: patient Mode of arrival: Ambulatory History of Present Illness HPI narrative: Significant PMHx include: rheumatoid and psoriatic arthritis, GERD, obesity, uterine cancer, osteoporosis, fibromyalgia, IBS, anxiety, diverticulitis Palmira, a 69-year-old female, presented to the emergency department with concerns about elevated blood pressure and left leg pain. She reported experiencing chest pressure for the past two days, which she attributed to anxiety due to her high blood pressure readings. The patient mentioned that her blood pressure at home was 151/86, which is higher than her usual readings of around 120/79. She has a history of borderline hypertension and experiences white coat syndrome. Palmira has been taking Rinvoq for three months for her rheumatoid and psoriatic arthritis, as prescribed by her acquisition specialist. She mentioned that her acquisition specialist had warned about the potential for this medication to cause high blood pressure in rare cases. The patient also complained of L leg pain, which she has been experiencing for over a year. She was previously diagnosed with a torn meniscus, but an MRI of her lower spine revealed pinching of the nerves at L4 and L5. Palmira described burning sensations on the tops of her feet, which have been ongoing for a year. She noted difficulty bending her L knee after walking and experiences pain on the side of her leg. Palmira's medical history includes rheumatoid arthritis, psoriatic arthritis, and a history of uterine cancer. She denies any history of heart attacks, lung issues, or blood clots. The patient does not smoke, drink alcohol, or use recreational drugs. Related Data Home Medications Medication Instructions Recorded Confirmed krill 500 mg-omega-3 150 mg-dha 45 1 cap PO DAILY Suppose to help 05/21/23 08/08/24 mg-epa 75 qg-mlzjvpc-mwcew capsule inflammation (krill oil) magnesium glycinate 100 mg (as 300 mg PO DAILY 05/21/23 08/08/24 glycinate) tablet loratadine 10 mg tablet (Claritin) 10 mg PO DAILY 08/23/23 08/08/24 famotidine 20 mg tablet 20 mg PO BID 09/18/23 08/08/24 coenzyme Q10 PO 05/21/24 08/08/24 upadacitinib 15 mg tablet,extended 15 mg PO DAILY Rhuematoid arthritis 06/03/24 08/08/24 release 24 hr (Rinvoq) Previous Rx's Medication Instructions Recorded Tirosint 50 mcg capsule 50 mcg PO DAILY #90 caps 03/01/21 (levothyroxine) amitriptyline 10 mg tablet 5 mg (1/2 x 10 mg) PO BEDTIME #45 04/29/21 tabs pravastatin 20 mg tablet See Rx Instructions .Route 05/26/21 .COMPLEX #90 tabs estradiol 10 mcg vaginal tablet 10 mcg vaginal 3XW #38 tabs 01/31/24 testosterone (AndroGel) 0.25 pump topical DAILY #75 grams 08/08/24 alprazolam 0.25 mg tablet 0.125 mg (1/2 x 0.25 mg) PO TID 08/21/24 anxiety #5 tabs Allergies Allergy/AdvReac Type Severity Reaction Status Date / Time sulfamethoxazole Allergy Mild RASH Verified 08/08/24 08:43 nitrofurantoin AdvReac Severe Dizziness Verified 08/08/24 08:43 [From Macrodantin] ciprofloxacin [CIPROFLOXACIN] AdvReac Mild swollen Verified 08/08/24 08:43 tendons trimethoprim [From Septra] AdvReac rash Verified 08/08/24 08:43 <Tani Yoo MD - Last Filed: 08/22/24 04:44> History of Present Illness HPI narrative: Significant PMHx include: rheumatoid and psoriatic arthritis, GERD, obesity, uterine cancer, osteoporosis, fibromyalgia, IBS, anxiety, diverticulitis Palmira, a 69-year-old female, presented to the emergency department with concerns about elevated blood pressure and left leg pain. She reported experiencing chest pressure for the past two days, which she attributed to anxiety due to her high blood pressure readings. The patient mentioned that her blood pressure at home was 151/86, which is higher than her usual readings of around 120/79. She has a history of borderline hypertension and experiences white coat syndrome. Palmira has been taking Rinvoq for three months for her rheumatoid and psoriatic arthritis, as prescribed by her acquisition specialist. She mentioned that her acquisition specialist had warned about the potential for this medication to cause high blood pressure in rare cases. The patient also complained of L leg pain, which she has been experiencing for over a year. She was previously diagnosed with a torn meniscus, but an MRI of her lower spine revealed pinching of the nerves at L4 and L5. Palmira described burning sensations on the tops of her feet, which have been ongoing for a year. She noted difficulty bending her L knee after walking and experiences pain on the side of her leg. Palmira's medical history includes rheumatoid arthritis, psoriatic arthritis, and a history of uterine cancer. She denies any history of heart attacks, lung issues, or blood clots. The patient does not smoke, drink alcohol, or use recreational drugs. 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 Diverticular disease (2008) Diverticulitis Fibromyalgia (1985) GERD (gastroesophageal reflux disease) (2008) Hematuria (1985) Hemorrhoids (2016) Hyperlipidemia IBS (irritable bowel syndrome) (2016) Measles Mumps Mural thickening of sigmoid colon Obesity Osteoarthritis (1995) Osteoarthritis of knees, bilateral Osteopenia (2009) Osteoporosis Psoriatic arthritis Reflux esophagitis Rheumatoid arthritis (~1998) Spondylolisthesis at L4-L5 level Thyroid nodule (2013) Tinnitus (2014) Uterine cancer (04/2016) Surgical History Anesthesia complication S/P partial colectomy Status post colonoscopy (04/2016) Status post endoscopy (04/2016) Status post hysterectomy (04/2016) Status post knee surgery (04/2015) Status post tubal ligation (1986) Family History Brother Age: 66 Multiple sclerosis Brother Age: 50 IBS (irritable bowel syndrome) Father Age: 90 Alzheimer's disease Mother Age: 90 Breast cancer Heart disease Hypertension High cholesterol Dementia Congestive heart failure Sister Age: 64 Sjogren's syndrome Grandfather No problems noted. Grandmother No problems noted. Grandfather No problems noted. Grandmother No problems noted. Social History marital status: household members: spouse pets and animals: Yes education level: college [employer]: [employer] other: walking,hiking,singing,painting,drawing,knitting seatbelt use: always helmet use: Yes water heater temp set < 120 deg: Yes working smoke detector in home: Yes fire extinguisher in home: Yes carbon monox detector in home: Yes firearms in home: No Smoking Status: Never smoker alcohol intake: never substance use type: does not use during the past year weight has: decreased > 10 lbs well-balanced diet: daily or most days daily servings fruits/ve-1 caffeine: Yes eating out: rarely or never Smoking Status: Never smoker alcohol intake frequency: 0-2 drinks per day Exam <Kirill Michele MD - Last Filed: 08/22/24 09:39> Narrative Exam Narrative: VS as noted above Focused physical exam as follows: General: Well developed, well nourished, no acute distress HEENT: pink palpebral conjunctiva, anicteric sclera, JOEY, moist mucous membranes, no JVD, no cervical lymphadenopathy Lungs: no respiratory distress, clear to auscultation without wheezes or crackles; equal breath sounds Heart: normal rate, regular rhythm, no appreciable murmurs Abdomen: soft, nontender, no rebound or rigidity Musculoskeletal: LLE - mild calf tenderness but knee ROM intact; no increased redness, warmth of the knee Skin: pink, warm; no rashes Neuro: AAOx3, GCS 15, nonfocal exam Psyche: no SI/HI, normal affect Initial Vital Signs Initial Vital Signs: Vital Signs Temperature 98 F 08/21/24 15:26 Pulse Rate 75 08/21/24 15:26 Respiratory Rate 20 08/21/24 15:26 Blood Pressure 200/89 H 08/21/24 15:26 Pulse Oximetry 100 08/21/24 15:26 Oxygen Delivery Method Room Air 08/21/24 15:26 <Tani Yoo MD - Last Filed: 08/22/24 04:44> Initial Vital Signs Initial Vital Signs: Vital Signs Temperature 98 F 08/21/24 15:26 Pulse Rate 75 08/21/24 15:26 Respiratory Rate 20 08/21/24 15:26 Blood Pressure 200/89 H 08/21/24 15:26 Pulse Oximetry 100 08/21/24 15:26 Oxygen Delivery Method Room Air 08/21/24 15:26 Course <Kirill Michele MD - Last Filed: 08/22/24 09:39> Course Course Narrative: Initial VS noted above. PMHx, PSHx, Medication list, social history reviewed as noted above. Differential diagnosis considered include (but not limited to) the following: essential hypertension, anxiety, ACS, cardiac dysrhythmia, PE, pericarditis, costochondritis, hiatal hernia, GERD, gastritis, gastric ulcer, pancreatitis, cholelithiasis/cystitis, DVT, RA/PA, DJD knee, liver or kidney failure, electrolyte imbalance Pt interviewed and examined. Bedside EKG showed no ST elevation or ectopy. Work up initiated. CXR unremarkable. Venous doppler US of the LLE negative for DVT. Labs reviewed - unremarkable. CTA chest ordered and results pending. Transferred care to Dr. Yoo @ 1845 with work up and disposition pending. Kirill Michele MD 08/21/24 102 Orders Ordered: Discontinued Medications Aspirin (Aspirin 81 Mg Chew Tab) 324 mg PO NOW ONE Stop: 08/21/24 15:37 Last Admin: 08/21/24 19:41 Dose: Not Given Documented By: DAVID Diazepam (Diazepam 10 Mg/2 Ml Syringe) 2 mg IV NOW ONE Stop: 08/21/24 20:38 Last Admin: 08/21/24 21:04 Dose: Not Given Documented By: SB(2) Vital Signs Vital signs: Vital Signs - 8 hr 08/21/24 20:48 08/21/24 20:48 08/21/24 21:00 Pulse Rate 78 Respiratory Rate Blood Pressure 197/86 H 181/79 H Pulse Oximetry 97 Oxygen Delivery Method 08/21/24 21:00 08/21/24 21:30 08/21/24 21:30 Pulse Rate 77 74 Respiratory Rate 18 21 Blood Pressure 172/76 H Pulse Oximetry 98 97 Oxygen Delivery Method Room Air 08/21/24 22:00 08/21/24 22:00 08/21/24 22:30 Pulse Rate 72 75 Respiratory Rate 25 H 25 H Blood Pressure 170/78 H Pulse Oximetry 99 Oxygen Delivery Method <Tani Yoo MD - Last Filed: 08/22/24 04:44> Orders Ordered: Discontinued Medications Aspirin (Aspirin 81 Mg Chew Tab) 324 mg PO NOW ONE Stop: 08/21/24 15:37 Last Admin: 08/21/24 19:41 Dose: Not Given Documented By: SB Diazepam (Diazepam 10 Mg/2 Ml Syringe) 2 mg IV NOW ONE Stop: 08/21/24 20:38 Last Admin: 08/21/24 21:04 Dose: Not Given Documented By: SB(2) Vital Signs Vital signs: Vital Signs - 8 hr 08/21/24 20:48 08/21/24 20:48 08/21/24 21:00 Pulse Rate 78 Respiratory Rate Blood Pressure 197/86 H 181/79 H Pulse Oximetry 97 Oxygen Delivery Method 08/21/24 21:00 08/21/24 21:30 08/21/24 21:30 Pulse Rate 77 74 Respiratory Rate 18 21 Blood Pressure 172/76 H Pulse Oximetry 98 97 Oxygen Delivery Method Room Air 08/21/24 22:00 08/21/24 22:00 08/21/24 22:30 Pulse Rate 72 75 Respiratory Rate 25 H 25 H Blood Pressure 170/78 H Pulse Oximetry 99 Oxygen Delivery Method Medical Decision Making <Kirill Michele MD - Last Filed: 08/22/24 09:39> Lab Data 08/21/24 15:51 08/21/24 15:51 Labs: Lab Results 08/21/24 08/21/24 Range/Units 15:51 20:30 WBC 6.3 (4.5-11.0) X10^3/uL RBC 4.57 (4.0-5.2) X10^6/uL Hgb 14.2 (12.0-16.0) g/dL Hct 42.8 (36-46) % MCV 93.6 (80-100) fL MCH 31.0 (26-34) PG MCHC 33.1 (30-36) % RDW 14.0 (11.6-14.8) % Plt Count 217 (150-400) X10^3/uL Neut % (Auto) 42.6 L (50-75) % Lymph % (Auto) 45.7 H (25-40) % Lawrence % (Auto) 9.4 (3-14) % Eos % (Auto) 1.4 L (2-4) % Baso % (Auto) 0.9 (0-2) % Neut # (Auto) 2700 (9594-0405) /uL Lymph # (Auto) 2900 (0816-3922) /uL Lawrence # (Auto) 600 (0-900) /uL Eos # (Auto) 100 (0-450) /uL Baso # (Auto) 100 (0-100) /uL PT 10.3 (9.4-12.5) SECONDS INR 0.9 (0.9-1.3) APTT 33 (25.1-36.5) SECONDS Sodium 140 (137-145) mmol/L Potassium 3.9 (3.4-5.1) mmol/L Chloride 105 (98-107) mmol/L Carbon Dioxide 26 (22-32) mmol/L BUN 22 H (7-17) mg/dL Creatinine 0.87 (0.52-1.04) mg/dL Estimated GFR > 60 (>60) mL/min BUN/Creatinine Ratio 25.3 H (6-22) Glucose 96 (70-99) mg/dL Lactate 1.1 (0.7-2.1) mmol/L Calcium 9.6 (8.4-10.2) mg/dL Magnesium 2.2 (1.6-2.3) mg/dL Total Bilirubin 0.7 (0.2-1.3) mg/dL AST 42 H (14-36) IU/L ALT 36 H (<35) IU/L Alkaline Phosphatase 91 (38-126) U/L Total Creatine Kinase 264 H (30-135) U/L Troponin I < 0.012 0.021 (0.01-0.034) ng/mL NT-Pro-B Natriuret Pep 38 (<125) pg/mL Total Protein 8.5 H (6.3-8.2) g/dL Albumin 5.1 H (3.5-5.0) g/dL Globulin 3.4 (1.7-4.1) g/dL Albumin/Globulin Ratio 1.5 (1.0-2.8) Lipase 197 (23-300) U/L Imaging Data Venous doppler LLE: Radiologist's Impression: IMPRESSION: No findings of lower extremity deep venous thrombosis. ECG Data Attestation: I personally reviewed and interpreted this ECG as follows: (1545 - NSR @ 71; nonspecific STTW changes; QTc 454) <Tani Yoo MD - Last Filed: 08/22/24 04:44> Lab Data Labs: Lab Results 08/21/24 08/21/24 Range/Units 15:51 20:30 WBC 6.3 (4.5-11.0) X10^3/uL RBC 4.57 (4.0-5.2) X10^6/uL Hgb 14.2 (12.0-16.0) g/dL Hct 42.8 (36-46) % MCV 93.6 (80-100) fL MCH 31.0 (26-34) PG MCHC 33.1 (30-36) % RDW 14.0 (11.6-14.8) % Plt Count 217 (150-400) X10^3/uL Neut % (Auto) 42.6 L (50-75) % Lymph % (Auto) 45.7 H (25-40) % Lawrence % (Auto) 9.4 (3-14) % Eos % (Auto) 1.4 L (2-4) % Baso % (Auto) 0.9 (0-2) % Neut # (Auto) 2700 (4977-6175) /uL Lymph # (Auto) 2900 (4389-4553) /uL Lawrence # (Auto) 600 (0-900) /uL Eos # (Auto) 100 (0-450) /uL Baso # (Auto) 100 (0-100) /uL PT 10.3 (9.4-12.5) SECONDS INR 0.9 (0.9-1.3) APTT 33 (25.1-36.5) SECONDS Sodium 140 (137-145) mmol/L Potassium 3.9 (3.4-5.1) mmol/L Chloride 105 (98-107) mmol/L Carbon Dioxide 26 (22-32) mmol/L BUN 22 H (7-17) mg/dL Creatinine 0.87 (0.52-1.04) mg/dL Estimated GFR > 60 (>60) mL/min BUN/Creatinine Ratio 25.3 H (6-22) Glucose 96 (70-99) mg/dL Lactate 1.1 (0.7-2.1) mmol/L Calcium 9.6 (8.4-10.2) mg/dL Magnesium 2.2 (1.6-2.3) mg/dL Total Bilirubin 0.7 (0.2-1.3) mg/dL AST 42 H (14-36) IU/L ALT 36 H (<35) IU/L Alkaline Phosphatase 91 (38-126) U/L Total Creatine Kinase 264 H (30-135) U/L Troponin I < 0.012 0.021 (0.01-0.034) ng/mL NT-Pro-B Natriuret Pep 38 (<125) pg/mL Total Protein 8.5 H (6.3-8.2) g/dL Albumin 5.1 H (3.5-5.0) g/dL Globulin 3.4 (1.7-4.1) g/dL Albumin/Globulin Ratio 1.5 (1.0-2.8) Lipase 197 (23-300) U/L Imaging Data Venous doppler LLE: Radiologist's Impression: Close Vascular Ultrasound (Signed) Charly Mejia - 08/21/24 Chest CTA (Signed) Charly Mejia 08/21/24 Chest X-Ray (Signed) Charly Mejia - 08/21/24 [place] [address] Ultrasound Report Signed Patient: Palmira Bah MR#: [id number] : 1955 Acct:[id number] Age/Sex: 69 / F Date of Service: 08/21/24 Loc: ED Accession Number: [id number] Procedure: US perip venous low extrem lt Ordering Provider: Kirill Michele MD PROCEDURE: US PERIP VENOUS LOW EXTREM LT INDICATIONS: leg pain r/o DVT TECHNIQUE: Real-time imaging, as well as color and pulse Doppler interrogation, were performed of the lower extremity deep veins from the inguinal ligament to the popliteal fossa, with documentation of the visualized calf veins. COMPARISON: None. FINDINGS: The common femoral, femoral, popliteal, and the visualized calf veins are normally compressible, and free of intraluminal thrombus. Color and pulse Doppler demonstrate normal phasic intraluminal flow. There is normal augmentation response to distal compression maneuver. IMPRESSION: No findings of lower extremity deep venous thrombosis. Dictated by: Charly Mejia M.D. on 08/21/2024 at 17:00 Approved by: Charly Mejia M.D. on 08/21/2024 at 17:01 Chest x-ray: Radiologist's Impression: Close Vascular Ultrasound (Signed) Charly Mejia 08/21/24 Chest CTA (Signed) Charly Mejia 08/21/24 Chest X-Ray (Signed) Charly Mejia 08/21/24 [facility]?[address] [address] XRay Report Signed Patient: Palmira Bah MR#: [id number] : 1955 Acct:[id number] Age/Sex: 69 / F Date of Service: 08/21/24 Loc: ED Accession Number: [id number] Procedure: XR chest 1V Ordering Provider: Kirill Michele MD PROCEDURE: XR CHEST 1V INDICATIONS: Chest Pain TECHNIQUE: One view of the chest was acquired. COMPARISON: [facility], , XR CHEST 1V, 11/01/2019, 9:15. FINDINGS: Surgical changes and devices: None. Lungs and pleura: Lungs are clear. No pleural effusions or pneumothorax. Mediastinum: Mediastinal contours appear normal. Heart size is normal. Bones and chest wall: No suspicious bony lesions. Overlying soft tissues appear unremarkable. IMPRESSION: No acute cardiopulmonary pathology. Dictated by: Charly Mejia M.D. on 08/21/2024 at 16:32 Approved by: Charly Mejia M.D. on 08/21/2024 at 16:32 CTA chest: Radiologist's Impression: Close Vascular Ultrasound (Signed) Charly Mejia 08/21/24 Chest CTA (Signed) Charly Mejia 08/21/24 Chest X-Ray (Signed) Charly Mejia 08/21/24 [facility]?[address] [address] XRay Report Signed Patient: Palmira Bah MR#: [id number] : 1955 Acct:[id number] Age/Sex: 69 / F Date of Service: 08/21/24 Loc: ED Accession Number: [id number] Procedure: XR chest 1V Ordering Provider: Kirill Michele MD PROCEDURE: XR CHEST 1V INDICATIONS: Chest Pain TECHNIQUE: One view of the chest was acquired. COMPARISON: [facility], CR, XR CHEST 1V, 11/01/2019, 9:15. FINDINGS: Surgical changes and devices: None. Lungs and pleura: Lungs are clear. No pleural effusions or pneumothorax. Mediastinum: Mediastinal contours appear normal. Heart size is normal. Bones and chest wall: No suspicious bony lesions. Overlying soft tissues appear unremarkable. IMPRESSION: No acute cardiopulmonary pathology. Dictated by: Charly Mejia M.D. on 08/21/2024 at 16:32 Approved by: Charly Mejia M.D. on 08/21/2024 at 16:32 [facility] Narrative Medical decision making narrative: 08/21/24, Fredo Jack. Signout from Dr Michele. 69-year-old female with history of psoriatic arthritis and rheumatoid arthritis, on remitted therapy, had increased blood pressure at home, had chest pain when she was observing her blood pressure is elevated, also has left knee discomfort with tenderness to palpation posterior popliteal region. Ultrasound negative venous Doppler study. CT angiogram of the chest pending at this time. Assumed care. EKG shows normal sinus rhythm with rate 71. No obvious ST segment elevation or depression changes. Flat T-waves slight inversion lead 3 and F with flat T-waves lead 2. MO 176, QRS 88, QTC 454. CTA chest. No PE, no acute chest findings. See radiology report. Repeat troponin measurable but very low range. Has had anxiety, Xanax in the past, not available here. She has had Valium in the past, IV dose, some improvement in symptoms. We discussed short-term refill of Xanax, we will give a few tablets refill pending outpatient further evaluation with her PCP. History of reflux, can not take omeprazole, still taking famotidine. Encouraged to continue same antacid medication. Consider further workup as an outpatient for her chest pain, contact information given for local health and safety advisor Dr. Jason, though she might need referral from your primary care provider, or her primary care provider might prefer to use different cardiologists. Advised to contact her PCP tomorrow to arrange further evaluation as an outpatient. Discharge Plan Departure Patient Disposition: Home Clinical Impression: Chest pain, Anxiety Activity Restrictions/Additional Instructions: Chest discomfort unclear etiology, elevated blood pressures noted, history of anxiety, further increase his of blood pressure as you kept checking it. Possibly secondary to anxiety. EKG and blood testing not suggestive of heart attack at this time. History of reflux noted, for which he takes famotidine antacid, but can not take omeprazole. Continue the antacid for now. For your anxiety you have taken alprazolam low dose, which when it is not available here, you have also taken diazepam/Valium in the past, dose given. We will give short-term refill of alprazolam for the next few days, further as needed or other medication options per your regular provider. Consider further chest pain workup as an outpatient, contact information provided for local health and safety advisor Dr. Jason, though you might need referral from your primary care provider, or your primary care provider might refer you to a different cardiologists of their preference. Continue your chronic medications as planned. Follow up with your regular provider and with Cardiology as above. Return to this/nearest emergency department for any change worsening symptoms or any concerns prior. CT angiogram of your chest showed no acute changes per Radiology report. Prescriptions: New alprazolam 0.25 mg tablet 0.125 mg PO TID Qty: 5 0RF No Action krill oil [id number] mg capsule 1 cap PO DAILY magnesium glycinate 100 mg tablet 300 mg PO DAILY amitriptyline 10 mg tablet 5 mg PO BEDTIME Qty: 45 1RF pravastatin 20 mg tablet See Rx Instructions .ROUTE .COMPLEX Qty: 90 3RF Hold Instructions: has lost weight Dose Instruction: TAKE 1 TABLET AT BEDTIME Rx Instructions: TAKE 1 TABLET AT BEDTIME estradiol 10 mcg tablet 10 mcg vaginal 3XW Qty: 38 3RF Rx Instructions: [facility] Tirosint 50 mcg capsule 50 mcg PO DAILY Qty: 90 3RF coenzyme Q10 PO loratadine [Claritin] 10 mg tablet 10 mg PO DAILY Rinvoq 15 mg tablet extended release 24 hr 15 mg PO DAILY testosterone [AndroGel] 20.25 mg/1.25 gram (1.62 %) gel in metered-dose pump 0.25 pump topical DAILY Qty: 75 0RF Rx Instructions: apply 1/4 pump amount over max area of ONE shoulder or thigh, rotate sites famotidine 20 mg tablet 20 mg PO BID Referrals: Eunice Jason MD [Physician] - Alayna Nowak DO [Primary Care Provider] - Stand Alone Forms: Patient Portal/API/Survey
--- NOTE | 2024-08-21 15:55 | PC.NURSE ---
Pt requested that US guided IV be removed because it is placed improperly and it is painful. RN discussed with pt the importance of having IV due to pt's triage vital signs and chief complaints. Pt adamant about IV being removed. RN removed IV and also explained to pt that another IV may need to be placed at a later time for medications, etc. Pt stated that she will decline and does not want any medications for her HTN.
[2024-08-21 16:01] LABS: Add Manual Diff / Slide Review NO; Basophils Absolute Auto 100 /uL (0-100); Basophils Percent Auto 0.9 % (0-2); Eosinophils Absolute Auto 100 /uL (0-450); Eosinophils Percent Auto 1.4 % (2-4); Hematocrit 42.8 % (36-46); Hemoglobin 14.2 g/dL (12.0-16.0); Lymphocytes Absolute Auto 2900 /uL (1100-4500); Lymphocytes Percent Auto 45.7 % (25-40); Mean Corpuscular HGB Conc 33.1 % (30-36); Mean Corpuscular Volume 93.6 fL (80-100); Monocytes Absolute Auto 600 /uL (0-900); Monocytes Percent Auto 9.4 % (3-14); Neutrophils Absolute Auto 2700 /uL (1500-7000); Neutrophils Percent Auto 42.6 % (50-75); Platelet Count 217 X10^3/uL (150-400); Red Blood Cell Count 4.57 X10^6/uL (4.0-5.2); White Blood Cell Count 6.3 X10^3/uL (4.5-11.0)
--- NOTE | 2024-08-21 16:10 | DI.CT.S_ITS ---
PROCEDURE: CT ANGIO CHEST PE PROTOCOL INDICATIONS: chest pain TECHNIQUE: After the administration of intravenous contrast, 2 mm thick sections acquired from the pulmonary apices to the posterior costophrenic angles. 3-dimensional maximum intensity projection (MIP) coronal and sagittal reformats were then acquired through the thorax. For radiation dose reduction, the following was used: automated exposure control, adjustment of mA and/or kV according to patient size. COMPARISON: None. FINDINGS: Image quality: Diagnostic. Pulmonary arteries: Pulmonary arteries are normal in size, and demonstrate no intraluminal filling defects to suggest central pulmonary embolism. Lower Neck: No enlarged lymph nodes. Thyroid: No thyroid nodules which require sonographic follow up, per consensus guidelines. Axillae: No enlarged lymph nodes. Chest Wall: Unremarkable. Bones: Unremarkable. Lungs and Pleura: No pneumothorax or pleural effusions. No consolidation or suspicious nodules. Heart: Heart size is mildly enlarged. No pericardial effusion. Thoracic Vessels: No aortic aneurysm. Mediastinum and Yuly: No enlarged lymph nodes. Esophagus: No wall thickening. No hiatal hernia. Upper Abdomen: Visualized upper abdomen solid organs and bowel loops appear normal. IMPRESSION: 1. No pulmonary embolus. No thoracic aortic aneurysm or gross dissection. 2. No acute cardiopulmonary process. Dictated by: Charly Mejia M.D. on 08/21/2024 at 18:07 Approved by: Charly Mejia M.D. on 08/21/2024 at 18:09
--- NOTE | 2024-08-21 16:10 | DI.US.S_ITS ---
PROCEDURE: US PERIPH VENOUS LOW EXTREM LT INDICATIONS: leg pain r/o DVT TECHNIQUE: Real-time imaging, as well as color and pulse Doppler interrogation, were performed of the lower extremity deep veins from the inguinal ligament to the popliteal fossa, with documentation of the visualized calf veins. COMPARISON: None. FINDINGS: The common femoral, femoral, popliteal, and the visualized calf veins are normally compressible, and free of intraluminal thrombus. Color and pulse Doppler demonstrate normal phasic intraluminal flow. There is normal augmentation response to distal compression maneuver. IMPRESSION: No findings of lower extremity deep venous thrombosis. Dictated by: Charly Mejia M.D. on 08/21/2024 at 17:00 Approved by: Charly Mejia M.D. on 08/21/2024 at 17:01
[2024-08-21 16:12] LABS: INR 0.9 (0.9-1.3); Prothrombin Time 10.3 SECONDS (9.4-12.5)
[2024-08-21 16:15] LABS: PTT Partial Thromboplastin Tim 33 SECONDS (25.1-36.5)
[2024-08-21 16:17] LABS: Lactate (Lactic Acid) 1.1 mmol/L (0.7-2.1)
[2024-08-21 16:18] LABS: Alanine Aminotransferase 36 IU/L (<35); Albumin 5.1 g/dL (3.5-5.0); Albumin Globulin Ratio 1.5 (1.0-2.8); Alkaline Phosphatase 91 U/L (38-126); Aspartate Aminotransferase 42 IU/L (14-36); BUN Creatinine Ratio 25.3 (6-22); Bilirubin Total 0.7 mg/dL (0.2-1.3); Blood Urea Nitrogen 22 mg/dL (7-17); Calcium 9.6 mg/dL (8.4-10.2); Carbon Dioxide 26 mmol/L (22-32); Chloride 105 mmol/L (98-107); Creatine Kinase 264 U/L (30-135); Estimated Glomerular Filt Rate > 60 mL/min (>60); Globulin 3.4 g/dL (1.7-4.1); Glucose 96 mg/dL (70-99); HEMOLYSIS < 15 (0-50); Lipase 197 U/L (23-300); Magnesium 2.2 mg/dL (1.6-2.3); Potassium 3.9 mmol/L (3.4-5.1); Sodium 140 mmol/L (137-145); Total Protein 8.5 g/dL (6.3-8.2)
[2024-08-21 16:30] LABS: NT-proBNP (BNP-Adult 18+) 38 pg/mL (<125); Troponin I < 0.012 ng/mL (0.01-0.034)
[2024-08-21 21:25] LABS: Troponin I 0.021 ng/mL (0.01-0.034)
--- NOTE | 2024-08-21 22:09 | PC.NURSE ---
Pt reports burning, like heartburn chest discomfort with exertion when she walks to and from the bathroom. It dissipates when at rest.
== END 2024-08-21 23:22 | disposition home or self-care (01) ==
PROVIDERS: Emergency Medicine; Emergency Provider Emergency Medicine; PCP Family Medicine
DX: R07.9 Chest pain, unspecified (principal); F41.9 Anxiety disorder, unspecified; M25.562 Pain in left knee; R03.0 Elevated blood-pressure reading, without diagnosis of hypertension; M06.9 Rheumatoid arthritis, unspecified; L40.50 Arthropathic psoriasis, unspecified
CPT/HCPCS: 36415; 71045; 71275; 80053; 82550; 83605; 83690; 83735; 83880; 84484; 85025; 85610; 85730; 93005; 93010; 93971; 99283; 99284; Q9967

== ENCOUNTER → 2025-01-15 13:40 | Outpatient (CLI) | payer MEDICARE, OTHER, SELFPAY ==
[2025-01-15 13:55] LABS: Appearance Urine UA CLEAR; Bilirubin Urine UA NEGATIVE (NEGATIVE); Color Urine UA YELLOW; Glucose Urine UA NEGATIVE (Negative); Ketones Urine UA NEGATIVE (NEGATIVE); Leukocyte Esterase Urine UA NEGATIVE (NEGATIVE); Nitrite Urine UA NEGATIVE (Negative); Occult Blood Urine UA 1+ (Negative); Protein Urine UA NEGATIVE (Negative); Specific Gravity Urine UA 1.020 (1.000-1.035); Urobilinogen Urine UA 0.2 E.U./dL (0.2)
[2025-01-15 13:58] LABS: pH Urine UA 5.5 (4.5-8.0)
[2025-01-15 14:00] LABS: Culture Indicated Urine Cult Not Indicated
== END ==
PROVIDERS: PCP Family Medicine; Referring Provider Family Medicine; Visit Provider Family Medicine
DX: R30.0 Dysuria (principal); R30.9 Painful micturition, unspecified
CPT/HCPCS: 81001

== ENCOUNTER → 2025-01-17 09:16 | Outpatient (CLI) | payer MEDICARE, OTHER, SELFPAY ==
--- NOTE | 2025-01-17 09:18 | DI.MG.S_ITS ---
MM screening mammo BI: 01/17/2025. BI-RADS: 1 CLINICAL: 69-year old female for bilateral screening mammogram. Tyrer-Cuzick lifetime risk of 9.4%. Current reported family history of breast cancer: mother and maternal aunt. PRIOR EXAMS 12/08/2023, 12/05/2022, 11/23/2021, 04/28/2020. MAMMOGRAPHY TECHNIQUE: 2D and 3D (tomosynthesis) digital mammographic views obtained, with additional images as needed for full coverage. Current study was also evaluated with a Computer Aided Detection (CAD) system. DENSITY B. There are scattered areas of fibroglandular density. MAMMOGRAPHY FINDINGS Bilateral: No suspicious mass, asymmetry, microcalcification, or other abnormality seen. IMPRESSION: * No evidence of malignancy. RECOMMENDATIONS Bilateral * Annual screening mammography. OVERALL ASSESSMENT CATEGORY BI-RADS-1: Negative. [employer] recommends annual screening mammography beginning at age 40 for women with average risk of breast cancer. ELECTRONICALLY SIGNED: Kira Fernandes M.D. on 01/17/2025 at 10:00:07 PM PT Interpreting Station ID: [id number]
[2025-01-17 11:34] LABS: Add Manual Diff / Slide Review NO; Hematocrit 42.4 % (36-46); Hemoglobin 14.0 g/dL (12.0-16.0); Lymphocytes Absolute Auto 2700 /uL (1100-4500); Mean Corpuscular HGB Conc 32.9 % (30-36); Mean Corpuscular Hemoglobin 30.0 PG (26-34); Mean Corpuscular Volume 91.2 fL (80-100); Platelet Count 200 X10^3/uL (150-400)
[2025-01-17 12:09] LABS: Uric Acid 5.4 mg/dL (2.5-6.2)
== END ==
LOC: MAMMO 09:17
PROVIDERS: PCP Family Medicine; Referring Provider Family Medicine; Visit Provider Family Medicine
DX: Z12.31 Encounter for screening mammogram for malignant neoplasm of breast (principal); Z80.3 Family history of malignant neoplasm of breast; L40.50 Arthropathic psoriasis, unspecified; M05.9 Rheumatoid arthritis with rheumatoid factor, unspecified; R74.9 Abnormal serum enzyme level, unspecified; R53.83 Other fatigue; D72.829 Elevated white blood cell count, unspecified; Z15.89 Genetic susceptibility to other disease; Z79.631 Long term (current) use of antimetabolite agent
CPT/HCPCS: 36415; 77063; 77067; 83090; 84550; 85025

== ENCOUNTER → 2025-01-18 08:30 | Outpatient (CLI) | payer MEDICARE, OTHER, SELFPAY ==
[2025-01-18 09:43] LABS: Cholesterol 181 mg/dL (140-199); Creatine Kinase 123 U/L (30-135); HDL Cholesterol 46 mg/dL (40-60); Hemoglobin A1C% w Est Avg Glu 5.7 % (4.0-6.0); Triglycerides 152 mg/dL (35-150)
[2025-01-18 09:56] LABS: Free T3, Triiodothyronine Free 3.76 pg/mL (2.77-5.27)
[2025-01-18 10:10] LABS: TSH w/ Reflex to FT4 2.03 uIU/mL (0.47-4.68)
[2025-01-19 08:09] LABS: CRP, High Sensitivity 0.95 mg/L (0.00-3.00)
[2025-01-21 03:36] LABS: Insulin Level Total 18.5 uIU/mL (2.6-24.9)
== END ==
PROVIDERS: PCP Family Medicine; Referring Provider Family Medicine; Visit Provider Family Medicine
DX: E03.9 Hypothyroidism, unspecified (principal); E78.2 Mixed hyperlipidemia; R74.9 Abnormal serum enzyme level, unspecified; Z15.89 Genetic susceptibility to other disease
CPT/HCPCS: 36415; 80061; 82550; 83036; 83525; 84443; 84481; 86140